=== PATIENT | male | born 1945 | race Caucasian/White ===

== ENCOUNTER 2019-10-20 14:15 | Outpatient (CLI) | payer MEDICARE, OTHER, SELFPAY ==
[2019-10-20 14:58] LABS: Basophils Absolute Auto 0.1 K/mm3 (0.0-0.1); Basophils Percent Auto 0.9 % (0.2-1.2); Eosinophils Absolute Auto 0.2 K/mm3 (0-0.3); Eosinophils Percent Auto 4.3 % (0-4.4); Hematocrit 47.3 % (42.0-52.0); Hemoglobin 15.8 g/dL (14.0-18.0); Immature Granulocyte Absolute 0.02 K/mm3 (0.00-0.031); Immature Granulocyte Percent A 0.4 % (0-0.5); Lymphocytes Percent Auto 24.5 % (18.3-44.2); Mean Corpuscular HGB Conc 33.4 g/dl (32-36); Mean Corpuscular Hemoglobin 30.9 pg (26-34); Mean Corpuscular Volume 92.6 fl (80-100); Mean Platelet Volume 10.1 fl (7.4-10.4); Monocytes Absolute Auto 0.6 K/mm3 (0.1-0.6); Monocytes Percent Auto 10.4 % (2.6-8.5); Neutrophils Absolute Auto 3.2 K/mm3 (1.3-6.7); Neutrophils Percent Auto 59.5 % (45.5-73.1); Platelet Count Result 169 k/mm3 (150-375); Red Blood Count 5.11 M/mm3 (4.6-6.20); Red Cell Distribution Width 12.9 % (11.5-14.5); White Blood Count 5.3 K/mm3 (4.5-10.0)
[2019-10-20 15:13] LABS: Blood Urea Nitrogen 18 mg/dL (9-20); Calcium 9.3 mg/dL (8.4-10.2); Carbon Dioxide 27 mmol/L (22-30); Chloride 106 mmol/L (98-107); Cholesterol 158 mg/dL (0-200); Estimated Glomerular Filt Rate > 60; Glucose 98 mg/dL (75-110); HDL Direct 45 mg/dL; Potassium 4.5 mmol/L (3.4-5.0); Sodium 138 mmol/L (137-145); Triglycerides 120 mg/dL (<150)
[2019-10-20 15:26] LABS: LDL Cholesterol Direct 88 mg/dL
[2019-10-20 15:31] LABS: Hemoglobin A1C 5.2 % (<5.7)
[2019-10-20 15:47] LABS: Prostate Specific Antigen 0.6 ng/mL (< OR = 4.0)
== END 2019-10-20 14:16 | disposition home or self-care (01) ==
PROVIDERS: PCP Internal Medicine; Visit Provider Internal Medicine
DX: I10 Essential (primary) hypertension (principal); Z12.5 Encounter for screening for malignant neoplasm of prostate; Z79.899 Other long term (current) drug therapy
CPT/HCPCS: 36415; 80048; 80061; 83036; 84153; 84443; 85025; G0103

== ENCOUNTER 2020-03-09 12:00 | Emergency (ER) | payer MEDICARE, OTHER, SELFPAY ==
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
[2020-03-09 11:58] VITALS: BP 139/80; PULSE 69; RESP 20; TEMP 36.8; O2SAT 97
--- NOTE | 2020-03-09 12:08 | ECG_ITS ---
Measurements Intervals [place] Rate: 71 P: 22 VT: 196 QRS: -22 QRSD: 118 T: 24 QT: 427 QTc: 465 Interpretive Statements SINUS RHYTHM INCOMPLETE RIGHT BUNDLE BRANCH BLOCK BORDERLINE T WAVE ABNORMALITY- INFERIOR LEADS BORDERLINE ECG Electronically Signed On 03-09-2020 15:09:38 CDT by Juan M Taylor D.O.
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
[2020-03-09] MEDS: MORPHINE SULFATE (*CRX) 2 MG/ML INJ IV PUSH ×2 (13:01→13:51)
[2020-03-09 13:03] VITALS: BP 117/76; PULSE 71; RESP 18; O2SAT 99
[2020-03-09 13:51] VITALS: BP 116/76; PULSE 74; RESP 20; O2SAT 100
[2020-03-09] MEDS: LIDOCAINE 5% PATCH 1 PATCH TRANSDERM (14:30)
--- NOTE | 2020-03-09 14:35 | PC.NURSE ---
report called to [facility] er. cardoza called for transport
[2020-03-09 15:39] VITALS: BP 117/72; PULSE 78; RESP 18; O2SAT 99
== END 2020-03-09 15:42 | disposition short-term general hospital (02) ==
PROVIDERS: Emergency Provider Emergency Medicine; PCP Internal Medicine
DX: S22.5XXA Flail chest, initial encounter for closed fracture (principal); S00.03XA Contusion of scalp, initial encounter; I48.91 Unspecified atrial fibrillation; I10 Essential (primary) hypertension; Z98.49 Cataract extraction status, unspecified eye; V18.4XXA Pedal cycle driver injured in noncollision transport accident in traffic accident, initial encounter; Y93.55 Activity, bike riding; I45.10 Unspecified right bundle-branch block; R94.31 Abnormal electrocardiogram [ECG] [EKG]
CPT/HCPCS: 70450; 71250; 72125; 93005; 96374; 96376; 99285; A9270; J2270

== ENCOUNTER 2020-03-19 11:35 | Outpatient (CLI) | payer MEDICARE, OTHER, SELFPAY ==
--- NOTE | ~2020-03-19 | US_ITS ---
EXAMINATION: US renal BI DATE: 03/19/2020 12:24 INDICATION: Contusion of the adrenal gland TECHNIQUE: Multiple grayscale and Doppler ultrasound images of the kidneys were obtained. COMPARISON: CT, 03/09/2020 FINDINGS: The right kidney measures 10.1 x 5.1 x 5.2 cm. The left kidney measures 11.0 x 5.9 x 5.7 cm . The kidneys demonstrate normal parenchymal echogenicity. The adrenal glands are not specifically id entified. There is no hydronephrosis. The bladder is normal. IMPRESSION: 1. Normal kidneys without hydronephrosis. 2. Adrenal glands not identified. Reviewed, dictated and finalized at location A.
--- NOTE | ~2020-03-19 | XR_ITS ---
EXAMINATION: XR chest 2V DATE: 03/19/2020 11:54 INDICATION: Abnormal chest CT. TECHNIQUE: Frontal and lateral views of the chest were obtained. COMPARISON: Chest CT 03/09/2020, chest 2 views 09/14/2012 FINDINGS: There is mild atelectasis in left lower lung zone. No pleural effusion or pneumothorax. The re are displaced fractures of most of the right-sided ribs with volume loss of the right hemithorax. The heart size is normal. There are suture anchors in the humeral heads. IMPRESSION: 1. Mild atelectasis in left lower lung zone. 2. Displaced fractures of most of the right-sided ribs with volume loss of right hemithorax. Reviewed, dictated and finalized at location A. IMPRESSION: 1. Mild atelectasis in left lower lung zone. 2. Displaced fractures of most of the right-sided ribs with volume loss of righ t hemithorax.
== END 2020-03-19 11:36 | disposition home or self-care (01) ==
PROVIDERS: PCP Internal Medicine; Visit Provider Internal Medicine
DX: S37.812A Contusion of adrenal gland, initial encounter (principal); R93.89 Abnormal findings on diagnostic imaging of other specified body structures; S22.41XA Multiple fractures of ribs, right side, initial encounter for closed fracture; Z91.81 History of falling
CPT/HCPCS: 71046; 76775

== ENCOUNTER 2020-07-09 10:31 | Outpatient (CLI) | payer MEDICARE, OTHER, SELFPAY ==
[2020-07-09 11:02] LABS: Basophils Percent Auto 0.8 % (0.2-1.2); Eosinophils Absolute Auto 0.1 K/mm3 (0-0.3); Eosinophils Percent Auto 2.3 % (0-4.4); Hematocrit 48.2 % (42.0-52.0); Hemoglobin 16.1 g/dL (14.0-18.0); Immature Granulocyte Absolute 0.01 K/mm3 (0.00-0.031); Immature Granulocyte Percent A 0.2 % (0-0.5); Lymphocytes Percent Auto 26.9 % (18.3-44.2); Mean Corpuscular HGB Conc 33.4 g/dl (32-36); Mean Corpuscular Hemoglobin 30.1 pg (26-34); Mean Corpuscular Volume 90.1 fl (80-100); Monocytes Absolute Auto 0.5 K/mm3 (0.1-0.6); Monocytes Percent Auto 9.8 % (2.6-8.5); Neutrophils Absolute Auto 3.1 K/mm3 (1.3-6.7); Platelet Count Result 167 k/mm3 (150-375); Red Blood Count 5.35 M/mm3 (4.6-6.20); Red Cell Distribution Width 12.9 % (11.5-14.5); White Blood Count 5.2 K/mm3 (4.5-10.0)
[2020-07-09 11:03] LABS: Add Urine Microscopic? YES; Appearance Urine Clear (Clear); Bilirubin Urine Negative (Negative); Blood Urine Negative (Negative); Color Urine Straw (Yellow); Glucose Urine UA Negative (Negative); Ketones Urine Negative (Negative); Leukocyte Esterase Ur 1+ LEU/UL (NEGATIVE); Nitrate Urine Negative (Negative); Protein Urine Negative (Negative); Specific Grav Ur 1.008 (1.001-1.035); Urobilinogen Urine Negative mg/dL (<2.0)
[2020-07-09 11:23] LABS: LDL Cholesterol Direct 89 mg/dL
[2020-07-09 11:24] LABS: Hemoglobin A1C 5.1 % (<5.7)
[2020-07-09 11:29] LABS: Alanine Aminotransferase 19 U/L (4-50); Albumin Level 4.4 g/dL (3.5-5.1); Alkaline Phosphatase 86 U/L (38-126); Anion Gap 5 mmol/L (8-16); Aspartate Amino Transferase 29 U/L (17-59); Bilirubin,Total 0.7 mg/dL (0.2-1.3); Blood Urea Nitrogen 20 mg/dL (9-20); Calcium 9.5 mg/dL (8.4-10.2); Carbon Dioxide 31 mmol/L (22-30); Chloride 104 mmol/L (98-107); Cholesterol 154 mg/dL (0-200); Estimated Glomerular Filt Rate > 60; Glucose 100 mg/dL (75-110); HDL Direct 44 mg/dL; Potassium 4.4 mmol/L (3.4-5.0); Sodium 140 mmol/L (137-145); Triglycerides 163 mg/dL (<150)
[2020-07-11 21:37] LABS: Homocysteine 19.5 umol/L (<11.4)
[2020-07-11 22:08] LABS: Vitamin D 1,25 (OH)2 Total 46 pg/mL (18-72); Vitamin D2 1,25 (OH)2 <8 pg/mL; Vitamin D3 1,25 (OH)2 46 pg/mL
== END 2020-07-09 10:32 | disposition home or self-care (01) ==
PROVIDERS: PCP Internal Medicine; Visit Provider Internal Medicine
DX: E55.9 Vitamin D deficiency, unspecified (principal); R79.89 Other specified abnormal findings of blood chemistry; Z79.899 Other long term (current) drug therapy
CPT/HCPCS: 36415; 80053; 80061; 81001; 82652; 83036; 83090; 85025

== ENCOUNTER 2020-07-11 09:58 | Outpatient (CLI) | payer MEDICARE, OTHER, SELFPAY ==
[2020-07-11 10:50] LABS: Add Urine Microscopic? YES; Appearance Urine Clear (Clear); Bacteria Urine Trace /hpf; Bilirubin Urine Negative (Negative); Blood Urine Negative (Negative); Calcium Oxalate Crystals Urine Present /hpf; Color Urine Yellow (Yellow); Glucose Urine UA Negative (Negative); Ketones Urine Negative (Negative); Leukocyte Esterase Ur 1+ LEU/UL (NEGATIVE); Mucus Urine Rare /lpf; Nitrate Urine Negative (Negative); Protein Urine 1+ mg/dL (Negative); Specific Grav Ur 1.025 (1.001-1.035); Squamous Epithelial Cell Urine Rare /hpf (Few); WBC Urine 21-30 /hpf (0-3)
== END 2020-07-11 09:59 | disposition home or self-care (01) ==
PROVIDERS: PCP Internal Medicine; Visit Provider Internal Medicine
DX: R31.29 Other microscopic hematuria (principal)
CPT/HCPCS: 81001

== ENCOUNTER 2020-07-15 13:50 | Outpatient (CLI) | payer MEDICARE, OTHER, SELFPAY ==
--- NOTE | ~2020-07-15 | CT_ITS ---
EXAMINATION: CT abdomen pelvis wo/w con DATE: 07/15/2020 14:41 INDICATION: Hematuria, unspecified TECHNIQUE: Computed tomography (CT) of the abdomen and pelvis was performed without intravenous contr ast. CT of the abdomen and pelvis was then performed with a total of 130 mL Omnipaque 350 intravenous contrast using a double-bolus technique for simultaneous opacification of the renal parenchyma and r enal collecting system. The dose-length product (DLP) was 2838.66 mGy-cm. Automated exposure control and iterative reconstruction technique were employed. COMPARISON: 08/24/2011 FINDINGS: The lung bases are clear. The heart size is normal. There is a small sliding hiatal hernia. Cysts of the liver measure up to 9 mm in the right hepatic lobe. The spleen, pancreas, gallbladder, and right adrenal gland are normal. There is a 9 mm adenoma of the left adrenal gland. There are five nonobstructing stones of the right kidney which measure up to 9 mm. There is a 2 mm nonobstructing s tone of the left kidney. No stones are identified in the ureters or bladder. There is no hydronephros is or hydroureter. No suspicious renal or urothelial lesion is identified. No pathologically enlarged abdominal or pelvic lymph nodes are identified. There is no free intraperitoneal gas or evidence of bowel obstruction. An apparent filling defect of the bladder base appears to be related to the enlarg ed prostate rather than a bladder mass. A moderate volume of colonic stool is present. The appendix i s normal. There are surgical changes in the proximal left femur. There is severe lumbar spondylosis. IMPRESSION: 1. Bilateral nonobstructing nephrolithiasis. No suspicious renal or urothelial lesion identified. Reviewed, dictated and finalized at location A. 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
== END 2020-07-15 13:51 | disposition home or self-care (01) ==
PROVIDERS: PCP Internal Medicine; Visit Provider Internal Medicine
DX: R31.0 Gross hematuria (principal); N20.0 Calculus of kidney
CPT/HCPCS: 74178; Q9967

== ENCOUNTER 2020-09-04 09:33 | Outpatient (CLI) | payer MEDICARE, OTHER, SELFPAY ==
--- NOTE | ~2020-09-04 | XR_ITS ---
EXAMINATION: XR abdomen/kub 1V INDICATION: Calculus of the kidney TECHNIQUE: Supine views of the abdomen were obtained on 2 radiographs. COMPARISON: CT, 07/15/2020 FINDINGS: Stones measuring 9 mm and 3 mm are present in the lower pole of the right kidney. A [address] one previously seen in the right mid kidney is not definitely identified. Punctate left nephrolithias is on the comparison CT is also not seen. The bowel gas pattern is normal. There is severe lumbar spo ndylosis. IMPRESSION: 1. Right nephrolithiasis. Reviewed, dictated and finalized at location A. IMPRESSION: 1. Right nephrolithiasis.
== END 2020-09-04 09:34 | disposition home or self-care (01) ==
PROVIDERS: PCP Internal Medicine; Visit Provider Urology
DX: N20.0 Calculus of kidney (principal)
CPT/HCPCS: 74018

== ENCOUNTER 2020-11-19 14:32 | Outpatient (CLI) | payer MEDICARE, OTHER, SELFPAY ==
[2020-11-19 15:06] LABS: Anion Gap 9 mmol/L (8-16); Blood Urea Nitrogen 22 mg/dL (9-20); Calcium 9.3 mg/dL (8.4-10.2); Carbon Dioxide 25 mmol/L (22-30); Chloride 107 mmol/L (98-107); Cholesterol 157 mg/dL (0-200); Estimated Glomerular Filt Rate > 60; Glucose 102 mg/dL (75-110); HDL Direct 45 mg/dL; Potassium 4.3 mmol/L (3.4-5.0); Sodium 141 mmol/L (137-145); Triglycerides 149 mg/dL (<150)
[2020-11-19 15:17] LABS: LDL Cholesterol Direct 80 mg/dL
[2020-11-21 18:18] LABS: Homocysteine 11.7 umol/L (<11.4)
[2020-11-22 16:19] LABS: Vitamin D 1,25 (OH)2 Total 41 pg/mL (18-72); Vitamin D2 1,25 (OH)2 <8 pg/mL; Vitamin D3 1,25 (OH)2 41 pg/mL
== END 2020-11-19 14:33 | disposition home or self-care (01) ==
PROVIDERS: PCP Internal Medicine; Visit Provider Internal Medicine
DX: E55.9 Vitamin D deficiency, unspecified (principal); Z79.899 Other long term (current) drug therapy; R79.89 Other specified abnormal findings of blood chemistry
CPT/HCPCS: 36415; 80048; 80061; 82652; 83090

== ENCOUNTER 2021-07-03 00:05 | Day surgery (SDC) | payer MEDICARE, OTHER, SELFPAY ==
[2021-06-23 14:27] VITALS: BMI 27.3
[2021-07-03 07:50] VITALS: BP 118/72; PULSE 60; RESP 16; TEMP 36.2; O2SAT 99; BMI 27.9
[2021-07-03] MEDS: LACTATED RINGERS 1,000 ML 150 ML IV CONT (08:06)
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
[2021-07-03 08:58] VITALS: BP 95/56; PULSE 62; RESP 13; O2SAT 99
[2021-07-03 09:08] VITALS: BP 87/57; PULSE 67; RESP 13; O2SAT 100
[2021-07-03 09:18] VITALS: BP 117/76; PULSE 57; RESP 16; O2SAT 100
== END 2021-07-03 09:30 | disposition home or self-care (01) ==
PROVIDERS: PCP Internal Medicine; Visit Provider Internal Medicine Gastroenterology
PROC: 0DJD8ZZ Inspection of Lower Intestinal Tract, Via Natural or Artificial Opening Endoscopic (ICD-10-PCS; CPT 45378; principal; 2021-07-03 08:30)
DX: Z12.11 Encounter for screening for malignant neoplasm of colon (principal); D12.2 Benign neoplasm of ascending colon; K64.8 Other hemorrhoids; K57.30 Diverticulosis of large intestine without perforation or abscess without bleeding; Z87.828 Personal history of other (healed) physical injury and trauma; F41.9 Anxiety disorder, unspecified
CPT/HCPCS: 45385; 88305; J2704; J7120

== ENCOUNTER 2021-08-20 13:09 | Outpatient (CLI) | payer MEDICARE, SELFPAY ==
[2021-08-20 13:29] LABS: Basophils Absolute Auto 0.1 K/mm3 (0.0-0.1); Basophils Percent Auto 0.9 % (0.2-1.2); Eosinophils Absolute Auto 0.1 K/mm3 (0-0.3); Eosinophils Percent Auto 1.1 % (0-4.4); Hematocrit 46.1 % (42.0-52.0); Hemoglobin 15.7 g/dL (14.0-18.0); Immature Granulocyte Absolute 0.03 K/mm3 (0.00-0.031); Immature Granulocyte Percent A 0.6 % (0-0.5); Lymphocytes Absolute Auto 1.07 K/mm3 (0.9-3.2); Lymphocytes Percent Auto 19.7 % (18.3-44.2); Mean Corpuscular HGB Conc 34.1 g/dl (32-36); Mean Corpuscular Hemoglobin 31.3 pg (26-34); Mean Platelet Volume 9.2 fl (7.4-10.4); Monocytes Absolute Auto 0.5 K/mm3 (0.1-0.6); Monocytes Percent Auto 9.6 % (2.6-8.5); Neutrophils Absolute Auto 3.7 K/mm3 (1.3-6.7); Neutrophils Percent Auto 68.1 % (45.5-73.1); Platelet Count Result 172 k/mm3 (150-375); Red Blood Count 5.01 M/mm3 (4.6-6.20); Red Cell Distribution Width 12.6 % (11.5-14.5); White Blood Count 5.4 K/mm3 (4.5-10.0)
[2021-08-20 13:37] LABS: Add Urine Microscopic? YES; Appearance Urine Clear (Clear); Bilirubin Urine Negative (Negative); Blood Urine 2+ (Negative); Color Urine Yellow (Yellow); Glucose Urine UA Negative (Negative); Ketones Urine Negative (Negative); Leukocyte Esterase Ur Trace LEU/UL (Negative); Mucus Urine Rare /lpf; Nitrate Urine Negative (Negative); Protein Urine Negative (Negative); RBC Urine 51-75 /hpf (0-2); Specific Grav Ur 1.015 (1.001-1.035); Squamous Epithelial Cell Urine Rare /hpf (Few); Urobilinogen Urine Negative mg/dL (<2.0)
[2021-08-20 13:42] LABS: Alanine Aminotransferase 17 U/L (4-50); Albumin Level 4.6 g/dL (3.5-5.1); Alkaline Phosphatase 76 U/L (38-126); Anion Gap 5 mmol/L (8-16); Aspartate Amino Transferase 29 U/L (17-59); Bilirubin,Total 0.8 mg/dL (0.2-1.3); Blood Urea Nitrogen 20 mg/dL (9-20); Calcium 9.4 mg/dL (8.4-10.2); Carbon Dioxide 25 mmol/L (22-30); Chloride 106 mmol/L (98-107); Cholesterol 149 mg/dL (0-200); Estimated Glomerular Filt Rate > 60; Glucose 108 mg/dL (65-110); HDL Direct 44 mg/dL; Potassium 4.3 mmol/L (3.4-5.0); Sodium 136 mmol/L (137-145); Triglycerides 131 mg/dL (<150)
[2021-08-20 13:53] LABS: LDL Cholesterol Direct 70 mg/dL
[2021-08-20 13:59] LABS: Hemoglobin A1C 4.9 % (<5.7)
[2021-08-20 14:32] LABS: Free T4 Free Thyroxine 0.99 ng/mL (0.78-2.19)
== END 2021-08-20 13:10 | disposition home or self-care (01) ==
PROVIDERS: PCP Internal Medicine; Visit Provider Internal Medicine
DX: Z79.899 Other long term (current) drug therapy (principal); Z13.29 Encounter for screening for other suspected endocrine disorder; Z13.220 Encounter for screening for lipoid disorders
CPT/HCPCS: 36415; 80053; 80061; 81001; 83036; 84439; 84443; 85025; 87077; 87086; 87186

== ENCOUNTER 2021-09-01 15:05 | Outpatient (CLI) | payer MEDICARE, OTHER, SELFPAY ==
[2021-09-01 15:40] LABS: Anion Gap 8 mmol/L (8-16); Blood Urea Nitrogen 27 mg/dL (9-20); Calcium 9.3 mg/dL (8.4-10.2); Carbon Dioxide 27 mmol/L (22-30); Chloride 104 mmol/L (98-107); Estimated Glomerular Filt Rate 54; Glucose 99 mg/dL (65-110); Sodium 139 mmol/L (137-145)
[2021-09-01 15:52] LABS: Add Urine Microscopic? YES; Appearance Urine Cloudy (Clear); Bilirubin Urine Negative (Negative); Color Urine Yellow (Yellow); Glucose Urine UA Negative (Negative); Ketones Urine Negative (Negative); Leukocyte Esterase Ur Trace LEU/UL (Negative); Mucus Urine Rare /lpf; Nitrate Urine Negative (Negative); Protein Urine 1+ mg/dL (Negative); Specific Grav Ur 1.021 (1.001-1.035); WBC Urine 16-20 /hpf
[2021-09-01 16:06] LABS: Blood Urine Negative (Negative)
== END 2021-09-01 15:06 | disposition home or self-care (01) ==
LOC: ANHLAB 15:08
PROVIDERS: PCP Internal Medicine; Visit Provider Internal Medicine
DX: N39.0 Urinary tract infection, site not specified (principal); E87.5 Hyperkalemia
CPT/HCPCS: 36415; 80048; 81001; 87086; 87088

== ENCOUNTER 2021-10-03 13:18 | Outpatient (CLI) | payer MEDICARE, OTHER, SELFPAY ==
--- NOTE | ~2021-10-03 | XR_ITS ---
XR hip LT min 2V DATE: 10/03/2021 13:44 INDICATION: Left hip pain TECHNIQUE: AP and lateral views COMPARISON: None FINDINGS: 3 cerclage wires are noted, the lowermost fracture, at the intertrochanteric and subtrochan teric area of the left femur, apparently providing prior internal fixation of an intertrochanteric hi p fracture, with chronic associated deformity, with contiguous areas of heterotopic ossification. No recent fracture or dislocation. No bone destruction is evident. IMPRESSION: Old proximal left femoral fracture deformity Osteopenia Reviewed, dictated and finalized at location A.
--- NOTE | ~2021-10-03 | XR_ITS ---
XR lumbar spine 2-3V DATE: 10/03/2021 13:44 INDICATION: Low back pain TECHNIQUE: AP, lateral, coned lateral lumbosacral views COMPARISON: None FINDINGS: There is diffuse osteopenia. No fracture or bone destruction is evident. The lumbar pedicles are intact. There is prominent degenerative spurring of the lower thoracic and prominent bridging osteophytes of the lumbar spine. There is moderate degenerative disc disease and very prominent spurring at L1-2. There is moderately severe degenerative disc disease at L2-3. There is severe degenerative disc disease at L3-4, L4-5 and L5-S1. There is minimal anterolisthesis at L3-4 and L4-5 due to degenerative change at the apophyseal joints . The sacroiliac joints are intact. IMPRESSION: Prominent multilevel degenerative disc disease and bridging osteophytes of the lumbar spi ne Grade 1 anterolisthesis at L3-4 and L4-5 due to degenerative change at the apophyseal joints Osteopenia Reviewed, dictated and finalized at location A. IMPRESSION: Prominent multilevel degenerative disc disease and bridging osteoph ytes of the lumbar spine Grade 1 anterolisthesis at L3-4 and L4-5 due to degenerative change at the apop hyseal joints Osteopenia
== END 2021-10-03 13:19 | disposition home or self-care (01) ==
LOC: ANHIMG 13:25
PROVIDERS: PCP Internal Medicine; Visit Provider Internal Medicine
DX: M85.852 Other specified disorders of bone density and structure, left thigh (principal); M85.88 Other specified disorders of bone density and structure, other site; M51.36 Other intervertebral disc degeneration, lumbar region
CPT/HCPCS: 72100; 73502

== ENCOUNTER 2021-10-09 17:00 | Outpatient (CLI) | payer MEDICARE, OTHER, SELFPAY ==
[2021-10-09 19:18] LABS: Hemoglobin A1C 4.9 % (<5.7)
[2021-10-09 19:27] LABS: Thyroid Stimulating Hormone 0.982 uIU/mL (0.465-4.680)
[2021-10-09 19:44] LABS: Free T4 Free Thyroxine 1.07 ng/mL (0.78-2.19); Vitamin D 25 Hydroxy 68.1 ng/mL
== END 2021-10-09 17:01 | disposition home or self-care (01) ==
LOC: ANHLAB 17:04
PROVIDERS: PCP Internal Medicine; Visit Provider Internal Medicine
DX: Z79.899 Other long term (current) drug therapy (principal); Z13.29 Encounter for screening for other suspected endocrine disorder; E55.9 Vitamin D deficiency, unspecified
CPT/HCPCS: 36415; 82306; 83036; 84439; 84443

== ENCOUNTER → 2021-12-19 10:04 | Outpatient (CLI) | payer MEDICARE, OTHER, SELFPAY ==
--- NOTE | ~2021-12-19 | DEXA_ITS ---
Bone Density Report Name: RYAN RAM Age: 76 Sex: Male Ethnicity: White Date of : 1945 Indication: screening for osteoporosis; height loss; rheumatoid arthritis; Referring Provider: MANOJ CHIANG Study: Bone densitometry was performed. Exam Date: December 19, 2021 Accession number: [id number] Bone Density: Region BMD T-score Z-score Classification AP Spine (L1, L2, L3) 1.275 1.9 2.9 Normal Femoral Neck (Right) 0.602 -2.4 -1.1 Osteopenia Total Hip (Right) 0.807 -1.5 -0.7 Osteopenia World Health Organization criteria for BMD impression classify patients as: Normal (T-score at or above -1.0), Osteopenia (T-score between -1.0 and -2.5), or Osteoporosis (T-score at or below -2.5). 10-year Fracture Risk(1): Major Osteoporotic Fracture 13% Hip Fracture 5.1% Reported Risk Factors: [place] (), Neck BMD=0.602, BMI=30.5, rheumatoid arthritis (1) FRAX(R) Version 3.08. Fracture probability calculated for an untreated patient. Fracture probability may be lower if the patient has received treatment. Clinical Information Provided by Patient: Has rheumatoid arthritis Patient maximum height was 77 Drinks caffeinated beverages Impression: The patient has low bone mass, based on the Right Femoral Neck T-score. The patient has an estimated ten-year risk of hip fracture of 5.1% and an estimated ten-year risk of major fracture of 13%, based on the WHO FRAX algorithm. Discussion: BONE DENSITY IS LOW AT ONE OR MORE SKELETAL SITES. THE PATIENT'S BMD AND CLINICAL RISK FACTORS CONTRIBUTE TO THIS PATIENT'S INCREASED RISK OF FRACTURE. This patient's lowest T-score is low at one or more skeletal sites. It meets the World Health Organization's (WHO) criteria for ?low bone mass? (T-score between -1.0 and -2.5). The patient's 10-year risk of hip fracture as calculated by FRAX exceeds the threshold where pharmacological therapy is recommended by the National Osteoporosis Foundation (NOF). However, all treatment decisions require clinical judgment and consideration of individual patient factors, including patient preferences, comorbidities, previous drug use, risk factors not captured in the FRAX model (e.g., frailty, falls, vitamin D deficiency, increased bone turnover, interval significant decline in bone density) and possible under or overestimation of fracture risk by FRAX. The patient should follow a healthful lifestyle (good nutrition with adequate calcium and vitamin D, and appropriate weight-bearing exercise). Follow-Up: Consider repeating this study in 2 years to reassess this patient's status, or sooner if there is some new clinical indication. Reported by: [facility] on 12/19/2021 10:32:00 AM. Reviewed, dictated and finalized at location AJoy QUINONES
== END ==
PROVIDERS: PCP Internal Medicine; Visit Provider Internal Medicine
DX: Z87.310 Personal history of (healed) osteoporosis fracture (principal); M85.851 Other specified disorders of bone density and structure, right thigh
CPT/HCPCS: 77080

== ENCOUNTER 2022-04-09 07:10 | Outpatient (CLI) | payer MEDICARE, SELFPAY ==
[2022-04-09 07:57] LABS: LDL Cholesterol Direct 84 mg/dL
[2022-04-09 08:05] LABS: Cholesterol 148 mg/dL (0-200); HDL Direct 46 mg/dL
[2022-04-09 08:39] LABS: Triglycerides 71 mg/dL (<150)
[2022-04-09 09:29] LABS: Free T4 Free Thyroxine 0.91 ng/mL (0.78-2.19)
== END 2022-04-09 07:11 | disposition home or self-care (01) ==
LOC: ANHLAB 07:14
PROVIDERS: PCP Internal Medicine; Visit Provider Internal Medicine
DX: M85.80 Other specified disorders of bone density and structure, unspecified site (principal); Z13.21 Encounter for screening for nutritional disorder; Z79.899 Other long term (current) drug therapy; Z86.79 Personal history of other diseases of the circulatory system
CPT/HCPCS: 36415; 80061; 84439; 84443

== ENCOUNTER 2022-04-28 01:30 | Day surgery (SDC) | payer MEDICARE, SELFPAY ==
[2022-04-24 07:57] VITALS: BMI 29.0
--- NOTE | 2022-04-24 08:07 | PC.NURSE ---
PRE-OP INSTRUCTIONS, PLEASE READ CAREFULLY Report to the Outpatient Waiting Room, entrance under the green pavilion located off [facility], at time _0930_ on date _04/28/22_. Planned Procedure Time: _1130_. Time changes happen often and if your time is changed the preop area will call you the afternoon before. - You and your visitor will be asked to self-screen and do not enter if you have any COVID symptoms. - Only one visitor is requested with a max of two and NO children visitors are allowed at this time. - The patient visitor may be requested to leave or wait in car when not with patient due to distancing restrictions. - A mask is optional within the hospital. Patients may have clear liquids (water, carbonated beverages, clear teas, apple juice) until 3 hours prior to surgery (0830 AM) with a maximum of 20 ounces. - No food from midnight until time of surgery Take the following medications with a SIP of water the morning of surgery: _FLECAINIDE, GABAPENTIN, LORAZEPAM, TYLENOL IF NEEDED__ Medications to discontinue per DR. GUERRA - START 81MG ASPIRIN TO TONIGHT UNTIL SURGERY, IBUPROFEN PER DR. GUERRA'S INSTRUCTIONS _ Medications to discontinue per ANESTHESIA - _VITAMINS/SUPPLEMENTS, Date to take last dose 04/24/22_ Please no make-up, nail georgian, hairspray, perfume, deodorant, or body powder the day of surgery. No jewelry (including any body piercings) or valuables the day of surgery, leave them at home. Please take a shower or bath the night before, or the morning of, surgery with an antibacterial soap. Wear comfortable, loose fitting clothing. - Jewelry must be removed prior to entering the operating room. Rings and piercings that are not removed may be cut off. - The hospital will not accept responsibility for valuables. - Please leave all valuables, including medications, at home the day of surgery. If you are going home after surgery, a licensed shuttle truck driver must drive you home. - NO public transportation without another adult if you receive anesthesia. - We recommend that an adult stay with you for 24 hours following discharge. - We also recommend that you do not drive, make important decision, drink alcoholic beverages, or take any drugs that were not prescribed by your health care provider for at least 24 hours after your discharge time. Follow any additional instructions given to you from your surgeon. If you or anyone in your household have experienced Covid symptoms in the past week, please notify your surgeon or the nurse liaison at the phone number below for possible testing. Telephone instructions given to ____PT and asked if any additional questions and then verbalized understanding. Patient advised to call surgeon office or pre surgery nurse liaison [phone] if any additional questions.
--- NOTE | 2022-04-28 08:56 | WPDANESEPPF ---
Anes - Initial Pre Proc Eval Procedure: Operation Date: 04/28/22 11:30 Proposed Procedures p Rectal Examination Under Anesthesia, Excision of Residual Hemorrhoid Skin Tag - Stef Beebe DO Date/Time: 04/28/22 08:56 Surgeon: Stef Beebe DO Pre Op Diagnosis: residual hemorrhoids skin tags Patient Data Age: 77 Gender: M Height: 1.93 m Weight: 108.18 kg Allergies Allergy/AdvReac Type Severity Reaction Status Date / Time cephalexin Allergy Mild Rash Verified 04/28/22 09:31 latex Allergy Mild Rash Verified 04/28/22 09:31 Penicillins Allergy Mild Rash Verified 04/28/22 09:31 MARIA ELENA Inhibitors AdvReac Mild Cough Verified 04/28/22 09:31 TAPE Allergy Intermediate BLISTERS Uncoded 04/28/22 09:31 Home Medications Medication Instructions Recorded Confirmed Type omega-3 fatty acids 1,000 mg 2,000 mg PO BID 06/22/19 04/24/22 History capsule (Fish Oil Concentrate) cyanocobalamin (vitamin B-12) 1,000 mcg PO DAILY 07/18/20 04/24/22 History 1,000 mcg tablet folic acid 1 mg tablet 1 mg PO DAILY #90 tabs 05/16/21 04/24/22 Rx finasteride 5 mg tablet 5 mg PO HS 06/23/21 04/24/22 History flecainide 100 mg tablet 100 mg PO Q12H 06/23/21 04/24/22 History gabapentin 600 mg tablet 600 mg PO TID 06/23/21 04/24/22 History losartan 50 mg tablet See Rx Instructions .Route 08/11/21 04/24/22 Rx .COMPLEX #180 tabs garlic 100 mg tablet 100 mg PO DAILY 08/21/21 04/24/22 History potassium citrate 10 mEq (1,080 20 meq PO DAILY 09/02/21 04/24/22 History mg) tablet,extended release triamcinolone acetonide 0.5 % 1 applic topical BID #60 grams 10/03/21 04/24/22 Rx topical cream hydrocortisone 2.5 % topical cream 1 applic RECTAL BID-TID PRN 12/19/21 04/24/22 Rx with perineal applicator hemorrhoids #30 grams (Anusol-HC) zolpidem 10 mg tablet 10 mg PO QHS #90 tabs 01/09/22 04/24/22 Rx lorazepam 1 mg tablet 1 mg PO TID #270 tabs 03/09/22 04/24/22 Rx acetaminophen 500 mg tablet 1,000 mg PO HS PRN Pain 04/24/22 04/24/22 History aspirin 81 mg capsule 162 mg PO HS 04/24/22 04/24/22 History ibuprofen 200 mg tablet 200 mg PO Q6H PRN Pain 04/24/22 04/24/22 History Patient hx anesthesia problems: none Family hx anesthesia problems: none Results Review: All pre-operative results and documents have been reviewed as part of the pre-operative evaluation. REPLACED BY [facility] Past Medical History Medical History (Updated 04/28/22 @ 10:00 by Nathaniel Mas MD) Anxiety Atrial fibrillation and flutter BCC (basal cell carcinoma of skin) BMI 26.0-26.9,adult BMI 27.0-27.9,adult BMI 28.0-28.9,adult BPPV (benign paroxysmal positional vertigo) Colon cancer screening DJD (degenerative joint disease) Encounter for Medicare annual wellness exam Encounter for routine adult health examination without abnormal findings Encounter for special screening examination for neoplasm of prostate Flail chest Flank pain Hearing loss Hematuria Hx of multiple trauma Hyperkalemia Insomnia Lymphedema Microscopic hematuria Nephrolithiasis 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 Rash Skin lesion UTI (urinary tract infection) Vestibular dizziness Weight gain Surgical History Surgical History Femur fracture, left Repair compound fracture left remur H/O shoulder surgery S/P cataract surgery Family History Family History Father Hypertension Acute myocardial infarction Mother Hypertension Family history of Alzheimer's disease Family history of heart disease in male family member before age 55 Family history of hypercholesterolemia Family history of cardiovascular disease Social History Social History Smoking status: Never smoker Second hand tobacco smoke exposure: No Alcohol intake: never Alcohol use details: does not drink due to Afib Substance use: never Substance use type: d
[2022-04-28 09:43] VITALS: BP 116/72; PULSE 65; RESP 16; TEMP 36.7; O2SAT 100
[2022-04-28] MEDS: ACETAMINOPHEN 500 MG TABLET 1000 MG PO (09:50)
[2022-04-28] MEDS: LACTATED RINGERS 1,000 ML 30 ML IV CONT (10:01)
[2022-04-28] MEDS: KETOROLAC 15 MG/ML VIAL (*BKC) IV PUSH (10:02)
--- NOTE | 2022-04-28 10:48 | WPDHPUPDATE1 ---
History and Physical Update Update Date/Time: 04/28/22 10:48 History and Physical has been reviewed, including an updated exam of the patient. There are NO changes in the patient's condition. Risks, benefits, and alternatives have been discussed and questions answered. Patient agrees to proceed with procedure.
--- NOTE | 2022-04-28 10:48 | PM.IMHP ---
H&P: HPI History of Present Illness Date/Time: 04/28/22 10:48 Chief Complaint: Hemorrhoid skin tag Narrative: This is a 77-year-old man presents excision residual hemorrhoid skin tag. He has a prior history of irritation from these skin tags and now presents for excision. He denies any changes since last seen in the office. Review of Systems Review of Systems: All systems reviewed & are unremarkable except as noted in HPI and below Constitutional: Constitutional: Denies chills, Denies fever(s), Denies headache(s) and Denies weight loss Eyes: Eyes: Denies change in vision ENT: Denies dizziness, Denies headache(s), Denies neck mass and Denies throat swelling Cardiovascular: Cardiovascular: Denies chest pain, Denies lightheadedness and Denies dyspnea Respiratory: Respiratory: Denies cough, Denies dyspnea and Denies wheezing Gastrointestinal: Gastrointestinal: Denies abdominal pain, Denies change in bowel habits, Denies nausea and Denies vomiting Genitourinary: Genitourinary: Denies hematuria and Denies dysuria Musculoskeletal: Musculoskeletal: Reports as per HPI Integumentary/Breasts: Skin/Breast: Reports as per HPI Neurologic: Denies dizziness and Denies headache(s) Allergic/Immunologic: Allergic/Immunologic: Denies throat swelling and Denies wheezing [facility] Past Medical History Medical History (Updated 04/28/22 @ 10:00 by Nathaniel Mas MD) Anxiety Atrial fibrillation and flutter BCC (basal cell carcinoma of skin) BMI 26.0-26.9,adult BMI 27.0-27.9,adult BMI 28.0-28.9,adult BPPV (benign paroxysmal positional vertigo) Colon cancer screening DJD (degenerative joint disease) Encounter for Medicare annual wellness exam Encounter for routine adult health examination without abnormal findings Encounter for special screening examination for neoplasm of prostate Flail chest Flank pain Hearing loss Hematuria Hx of multiple trauma Hyperkalemia Insomnia Lymphedema Microscopic hematuria Nephrolithiasis On assisted drug therapy Rash Skin lesion UTI (urinary tract infection) Vestibular dizziness Weight gain Surgical History Surgical History Femur fracture, left Repair compound fracture left remur H/O shoulder surgery S/P cataract surgery Family History Family History Father Hypertension Acute myocardial infarction Mother Hypertension Family history of Alzheimer's disease Family history of heart disease in male family member before age 55 Family history of hypercholesterolemia Family history of cardiovascular disease Social History Social History Smoking status: Never smoker Second hand tobacco smoke exposure: No Alcohol intake: never Alcohol use details: does not drink due to Afib Substance use: never Substance use type: does not use Living arrangements: with friend(s) Additional living arrangements comments: LIVES WITH SIGNIFICANT OTHER Spiritual care concerns: No Meds Home Medications and Allergies Home Medications Medication Instructions Recorded Confirmed Type omega-3 fatty acids 1,000 mg 2,000 mg PO BID 06/22/19 04/24/22 History capsule (Fish Oil Concentrate) cyanocobalamin (vitamin B-12) 1,000 mcg PO DAILY 07/18/20 04/24/22 History 1,000 mcg tablet folic acid 1 mg tablet 1 mg PO DAILY #90 tabs 05/16/21 04/24/22 Rx finasteride 5 mg tablet 5 mg PO HS 06/23/21 04/24/22 History flecainide 100 mg tablet 100 mg PO Q12H 06/23/21 04/24/22 History gabapentin 600 mg tablet 600 mg PO TID 06/23/21 04/24/22 History losartan 50 mg tablet See Rx Instructions .Route 08/11/21 04/24/22 Rx .COMPLEX #180 tabs garlic 100 mg tablet 100 mg PO DAILY 08/21/21 04/24/22 History potassium citrate 10 mEq (1,080 20 meq PO DAILY 09/02/21 04/24/22 History mg) tablet,extended release triamcinolone acetonide 0.5
[2022-04-28] MEDS: CLINDAMYCIN 900 MG/D5W 50 ML 900 MG/50 ML PIGGYBACK 50 MG IVPB (11:13)
[2022-04-28 12:00] VITALS: BP 83/50; PULSE 61; RESP 13; O2SAT 98
[2022-04-28 12:30] VITALS: BP 119/73; PULSE 62; RESP 20
--- NOTE | 2022-04-28 12:39 | P.OP_ITS ---
Procedure Note - Detailed Date of Procedure 04/28/22 Pre-op Diagnosis residual hemorrhoids skin tags Post-op Diagnosis Same Procedure Performed Rectal exam under anesthesia with excision of residual hemorrhoid skin tag Surgeon Stef Beebe, DO Anesthesia General and Local (0.25% bupivicaine with epinephrine) Indications This is a 77-year-old man who presents with perianal irritation and a residual hemorrhoid skin tag. He had a prior history of a small hard lump in the perianal region that since resolved. He was found to have a perianal residual hemorrhoid skin tag on exam. Discussions were made with the patient about treatment options and decision was made to proceed with rectal exam under anesth esia with excision of residual hemorrhoid skin tag. Findings Rectal exam under anesthesia was performed. Patient was found to have a posterior midline residual hemorrhoid skin tag. There were no signs of significant prolapsing internal hemorrhoids or thrombosed external hemorrhoids. The residual hemorrhoid skin tag was excised in the posterior midline location. The specimen was sent to the lab for pathology. Description of Procedure Procedure as well as risks, benefits, and alternatives were discussed with the patient. Written consent was obtained and placed in chart prior to procedure. Patient was brought back to surgical suite. He was placed supine on operating table. Time-out was done to confirm patient and procedure. He was then intubated by the anesthesia department. He was then repositioned into lithotomy position in stirrups. His perirectal region was prepped and draped in sterile fashion using Betadine prep. Digital rectal exam was initially performed. A Hill-López anoscope was then inserted in the anal rectal canal was carefully inspected. No internal abnormalities were noted. There was a posterior midline residual hemorrhoid skin tag. 0.25% bupivacaine with epinephrine was infiltrated locally around the skin tag. An elliptical incision was then made using a 15 blade scalpel around the skin tag. The skin tag was then carefully excised with electrocautery. The wound bed was then inspected and hemostasis appeared adequate. No other abnormalities were noted. The anal mucosa and anoderm was then reapproximated using 3-0 chromic simple interrupted sutures. Xeroform gauze was then applied followed by 4 x 4 gauze, ABD pad, and mesh underwear. The patient was then awakened from anesthesia, extubated, and transferred to recovery. Estimated Blood Loss 5 Pathology Yes ( Residual hemorrhoid skin tag) Complications No immediate complications Condition Stable Disposition Same day [facility] Billing Surgery - Charge Forward: Surgery Billing
[2022-04-28 13:00] VITALS: BP 122/77; PULSE 59; RESP 20
== END 2022-04-28 13:21 | disposition home or self-care (01) ==
PROVIDERS: PCP Internal Medicine; Visit Provider Surgery
PROC: (CPT 46999; principal; 2022-04-28 11:30)
DX: K64.4 Residual hemorrhoidal skin tags (principal); F41.9 Anxiety disorder, unspecified; G47.00 Insomnia, unspecified; Z79.82 Long term (current) use of aspirin
CPT/HCPCS: 46999; 88304; A9270; J1100; J1885; J2250; J2405; J2704; J3010; J7120

== ENCOUNTER 2022-05-15 09:57 | Outpatient (CLI) | payer MEDICARE, SELFPAY ==
[2022-05-15 10:53] LABS: Basophils Absolute Auto 0.1 K/mm3 (0.0-0.1); Basophils Percent Auto 0.9 % (0.2-1.2); Eosinophils Absolute Auto 0.3 K/mm3 (0-0.3); Eosinophils Percent Auto 4.6 % (0-4.4); Hematocrit 44.2 % (42.0-52.0); Hemoglobin 14.9 g/dL (14.0-18.0); Immature Granulocyte Absolute 0.02 K/mm3 (0.00-0.031); Immature Granulocyte Percent A 0.4 % (0-0.5); Lymphocytes Absolute Auto 1.27 K/mm3 (0.9-3.2); Lymphocytes Percent Auto 23.2 % (18.3-44.2); Mean Corpuscular HGB Conc 33.7 g/dl (32-36); Mean Corpuscular Hemoglobin 31.4 pg (26-34); Mean Corpuscular Volume 93.2 fl (80-100); Mean Platelet Volume 9.6 fl (7.4-10.4); Monocytes Absolute Auto 0.6 K/mm3 (0.1-0.6); Monocytes Percent Auto 10.4 % (2.6-8.5); Neutrophils Absolute Auto 3.3 K/mm3 (1.3-6.7); Neutrophils Percent Auto 60.5 % (45.5-73.1); Platelet Count Result 209 k/mm3 (150-375); Red Blood Count 4.74 M/mm3 (4.6-6.20); White Blood Count 5.5 K/mm3 (4.5-10.0)
[2022-05-15 10:59] LABS: Alanine Aminotransferase 26 U/L (6-50); Albumin Level 4.6 g/dL (3.5-5.1); Alkaline Phosphatase 82 U/L (38-126); Anion Gap 7 mmol/L (8-16); Aspartate Amino Transferase 30 U/L (17-59); Bilirubin,Total 0.6 mg/dL (0.2-1.3); Blood Urea Nitrogen 24 mg/dL (9-20); Calcium 8.9 mg/dL (8.4-10.2); Carbon Dioxide 25 mmol/L (22-30); Chloride 102 mmol/L (98-107); Estimated Glomerular Filt Rate > 60; Glucose 90 mg/dL (65-110); Potassium 4.8 mmol/L (3.4-5.0); Sodium 134 mmol/L (137-145)
[2022-05-15 11:22] LABS: Hemoglobin A1C 5.3 % (<5.7)
[2022-05-15 12:48] LABS: Vitamin D 25 Hydroxy 53.6 ng/mL
== END 2022-05-15 09:58 | disposition home or self-care (01) ==
PROVIDERS: PCP Internal Medicine; Visit Provider Internal Medicine
DX: M85.80 Other specified disorders of bone density and structure, unspecified site (principal); Z79.899 Other long term (current) drug therapy; Z13.21 Encounter for screening for nutritional disorder; Z86.79 Personal history of other diseases of the circulatory system
CPT/HCPCS: 36415; 80053; 82306; 83036; 85025

== ENCOUNTER 2022-07-17 13:33 | Outpatient (CLI) | payer MEDICARE, SELFPAY ==
--- NOTE | ~2022-07-17 | XR_ITS ---
EXAMINATION:XR cervical spine 4-5V DATE: 07/17/2022 14:05 INDICATION: Neck pain TECHNIQUE: AP, lateral, lateral swimmers and odontoid views of the cervical spine are provided. COMPARISON: 03/09/2020 FINDINGS: Alignment is normal. The odontoid process is intact. No fracture is identified. The vertebr al body heights are maintained. There is chronic moderate loss of intervertebral disc space height at C5-6, C6-C7, and C7-T1. Degenerative osteophytes project from the anterior endplates of multiple stanislaw tebral bodies. There is multilevel severe facet and uncovertebral joint osteoarthritis. Prevertebral soft tissues are normal. IMPRESSION: 1. Moderate cervical spondylosis without acute findings or significant interval change. Reviewed, dictated and finalized at location B. ER DUMPER
--- NOTE | ~2022-07-17 | XR_ITS ---
EXAMINATION: XR thoracic spine 3V DATE: 07/17/2022 14:06 INDICATION: Thoracic back pain TECHNIQUE: AP, lateral and lateral swimmer's views of the thoracic spine were obtained. COMPARISON: CT, 03/09/2020 FINDINGS: There are bridging osteophytes at multiple levels in the spine, consistent with diffuse idi opathic skeletal hyperostosis (DISH). Bone alignment is normal. There is no fracture. The vertebral b codie heights are maintained. There is mild loss of intervertebral disc space height at multiple levels in the thoracic spine. IMPRESSION: 1. Diffuse idiopathic skeletal hyperostosis (DISH). Reviewed, dictated and finalized at location B. TY SALES CONSULTANT
--- NOTE | ~2022-07-17 | XR_ITS ---
EXAMINATION: XR shoulder LT min 2V DATE: 07/17/2022 14:05 INDICATION: Left shoulder pain. TECHNIQUE: 4 views of left shoulder were obtained. COMPARISON: Chest CT 03/09/2020 FINDINGS: Bone alignment is normal. There is a fracture of left second rib. There are likely changes of distal clavicle resection. There is a suture anchor in greater tuberosity of proximal humerus. The re is mild osteoarthritis of glenohumeral joint. IMPRESSION: 1. Fracture of left second rib. 2. Mild left glenohumeral joint osteoarthritis. Reviewed, dictated and finalized at location A. ER REPAIRER ELECTRIC
== END 2022-07-17 13:34 | disposition home or self-care (01) ==
PROVIDERS: PCP Internal Medicine; Visit Provider Internal Medicine
DX: M48.14 Ankylosing hyperostosis [Forestier], thoracic region (principal); M47.892 Other spondylosis, cervical region; M19.012 Primary osteoarthritis, left shoulder; S22.32XA Fracture of one rib, left side, initial encounter for closed fracture; X58.XXXA Exposure to other specified factors, initial encounter
CPT/HCPCS: 72050; 72072; 73030

== ENCOUNTER 2022-07-20 13:14 | Outpatient (CLI) | payer MEDICARE, SELFPAY ==
--- NOTE | ~2022-07-20 | XR_ITS ---
EXAMINATION: XR lumbar spine min 4V DATE: 07/20/2022 13:47 INDICATION: Unspecified fall, back pain TECHNIQUE: Anteroposterior, lateral, and bilateral oblique views of the lumbar spine, and cone-down l ateral view of the lumbosacral junction were obtained. COMPARISON: 10/03/2021 FINDINGS: There is unchanged severe loss of intervertebral disc space height from L2-3 through L5-S1. The vertebral body heights are maintained. There are 5 mm of stable anterolisthesis of L5 on S1. Deg enerative osteophytes project from the anterior endplates of multiple vertebral bodies. There is mult ilevel severe facet joint osteoarthritis. IMPRESSION: 1. Severe lumbar spondylosis without acute findings or significant interval change. Reviewed, dictated and finalized at location B. ON PICTURE COMMENTATOR IMPRESSION: 1. Severe lumbar spondylosis without acute findings or significant interval jean nge.
--- NOTE | ~2022-07-20 | XR_ITS ---
EXAM: XR knee RT min 4V, XR knee LT min 4V DATE: 07/20/2022 13:47 HISTORY: W19.XXXA - Unspecified fall, initial encounter . COMPARISON: None available. FINDINGS: Uncomplicated appearing screw and plate fixation of the proximal left tibia. Decreased min eralization. No acute fracture or dislocation. No lytic or blastic lesion. Bilateral, tricompartmenta l osteophytosis, moderate in the right knee and mild in the left knee. Bilateral chondrocalcinosis. M arked quadriceps and patellar enthesopathy in the left knee. No erosion or periosteal change. Soft ti ssues within normal limits. IMPRESSION: Moderate right and mild left knee arthritis, with chondrocalcinosis. No acute osseous fin ding in the right or left knees. Reviewed, dictated and finalized at location K. ERCIAL ASSISTANT IMPRESSION: Moderate right and mild left knee arthritis, with chondrocalcinosis . No acute osseous finding in the right or left knees.
== END 2022-07-20 13:15 | disposition home or self-care (01) ==
PROVIDERS: PCP Internal Medicine; Visit Provider Internal Medicine
DX: M47.896 Other spondylosis, lumbar region (principal); M17.0 Bilateral primary osteoarthritis of knee
CPT/HCPCS: 72110; 73564

== ENCOUNTER 2022-09-15 07:46 | Outpatient (CLI) | payer MEDICARE, SELFPAY ==
[2022-09-15 08:12] LABS: Basophils Absolute Auto 0.1 K/mm3 (0.0-0.1); Eosinophils Absolute Auto 0.2 K/mm3 (0-0.3); Eosinophils Percent Auto 3.1 % (0-4.4); Hematocrit 44.7 % (42.0-52.0); Hemoglobin 14.8 g/dL (14.0-18.0); Immature Granulocyte Absolute 0.03 K/mm3 (0.00-0.031); Immature Granulocyte Percent A 0.6 % (0-0.5); Lymphocytes Absolute Auto 1.13 K/mm3 (0.9-3.2); Lymphocytes Percent Auto 23.1 % (18.3-44.2); Mean Corpuscular HGB Conc 33.1 g/dl (32-36); Mean Corpuscular Hemoglobin 31.2 pg (26-34); Mean Corpuscular Volume 94.3 fl (80-100); Mean Platelet Volume 9.2 fl (7.4-10.4); Monocytes Absolute Auto 0.5 K/mm3 (0.1-0.6); Neutrophils Percent Auto 61.2 % (45.5-73.1); Platelet Count Result 173 k/mm3 (150-375); Red Blood Count 4.74 M/mm3 (4.6-6.20); Red Cell Distribution Width 12.7 % (11.5-14.5); White Blood Count 4.9 K/mm3 (4.5-10.0)
[2022-09-15 08:39] LABS: Alanine Aminotransferase 20 U/L (6-50); Albumin Level 4.5 g/dL (3.5-5.1); Alkaline Phosphatase 80 U/L (38-126); Anion Gap 6 mmol/L (8-16); Aspartate Amino Transferase 23 U/L (17-59); Bilirubin,Total 0.7 mg/dL (0.2-1.3); Blood Urea Nitrogen 20 mg/dL (9-20); Calcium 8.9 mg/dL (8.4-10.2); Carbon Dioxide 25 mmol/L (22-30); Chloride 109 mmol/L (98-107); Cholesterol 147 mg/dL (0-200); Estimated Glomerular Filt Rate > 60; Glucose 102 mg/dL (65-110); HDL Direct 44 mg/dL; Potassium 4.3 mmol/L (3.4-5.0); Sodium 140 mmol/L (137-145); Triglycerides 66 mg/dL (<150)
[2022-09-15 08:46] LABS: LDL Cholesterol Direct 82 mg/dL
[2022-09-15 08:58] LABS: Prostate Specific Antigen 0.6 ng/mL (< OR = 4.0)
[2022-09-15 10:31] LABS: Free T4 Free Thyroxine 1.18 ng/mL (0.78-2.19)
== END 2022-09-15 07:47 | disposition home or self-care (01) ==
PROVIDERS: PCP Internal Medicine; Visit Provider Internal Medicine
DX: M85.80 Other specified disorders of bone density and structure, unspecified site (principal); Z12.5 Encounter for screening for malignant neoplasm of prostate; Z79.899 Other long term (current) drug therapy; Z13.21 Encounter for screening for nutritional disorder; Z13.220 Encounter for screening for lipoid disorders; R73.09 Other abnormal glucose
CPT/HCPCS: 36415; 80053; 80061; 82306; 83036; 84153; 84439; 84443; 85025; G0103

== ENCOUNTER 2023-01-20 11:20 | Outpatient (CLI) | payer MEDICARE, SELFPAY ==
--- NOTE | ~2023-01-20 | XR_ITS ---
EXAMINATION: XR abdomen/kub 1V INDICATION: Calculus of the kidney TECHNIQUE: Supine views of the abdomen were obtained on three radiographs. COMPARISON: 09/04/2020 FINDINGS: There is a 6 mm stone of the right kidney. A previously identified adjacent 3 mm stone is n o longer evident. There are phleboliths of the pelvis. There is a new 9 mm calcification of the right pelvis of unclear location. A moderate volume of colonic stool is present. The visualized lung bases are clear. Surgical changes are noted in the proximal left femur. There is severe lumbar spondylosis . IMPRESSION: 1. Right nephrolithiasis. 2. Right pelvic calcification of unclear location, possibly within the distal ureter or bladder. Reviewed, dictated and finalized at location B. IMPRESSION: 1. Right nephrolithiasis. 2. Right pelvic calcification of unclear location, possibly within the distal u reter or bladder.
== END 2023-01-20 11:21 | disposition home or self-care (01) ==
PROVIDERS: PCP Internal Medicine; Visit Provider Urology
DX: N20.0 Calculus of kidney (principal)
CPT/HCPCS: 74018

== ENCOUNTER 2023-01-26 06:44 | Outpatient (CLI) | payer MEDICARE, SELFPAY ==
[2023-01-26 07:15] LABS: Appearance Urine Cloudy (Clear); Bacteria Urine 1+ /hpf; Bilirubin Urine Negative (Negative); Blood Urine Trace (Negative); Color Urine Yellow (Yellow); Glucose Urine UA Negative (Negative); Ketones Urine Negative (Negative); Leukocyte Esterase Ur 3+ LEU/UL (Negative); Nitrate Urine Positive (Negative); Non Pathogenic Casts 0-2; Protein Urine Trace mg/dL (Negative); RBC Urine 0-2 /hpf (0-2); Specific Grav Ur 1.017 (1.001-1.035); Squamous Epithelial Cell Urine None seen /hpf (Few); WBC Urine >100 /hpf; pH Urine 6.5 (5.0-9.0)
[2023-01-26 07:17] LABS: Alanine Aminotransferase 20 U/L (6-50); Albumin Level 4.2 g/dL (3.5-5.1); Alkaline Phosphatase 68 U/L (38-126); Anion Gap 9 mmol/L (8-16); Aspartate Amino Transferase 22 U/L (17-59); Bilirubin,Total 0.6 mg/dL (0.2-1.3); Blood Urea Nitrogen 21 mg/dL (9-20); Carbon Dioxide 27 mmol/L (22-30); Chloride 104 mmol/L (98-107); Cholesterol 144 mg/dL (0-200); Estimated Glomerular Filt Rate > 60; Glucose 93 mg/dL (65-110); HDL Direct 38 mg/dL; Potassium 4.3 mmol/L (3.4-5.0); Sodium 140 mmol/L (137-145); Triglycerides 61 mg/dL (<150)
[2023-01-26 07:18] LABS: Add Urine Microscopic? YES
[2023-01-26 07:24] LABS: Hemoglobin A1C 5.1 % (<5.7)
[2023-01-26 07:27] LABS: LDL Cholesterol Direct 87 mg/dL
== END 2023-01-26 06:45 | disposition home or self-care (01) ==
PROVIDERS: PCP Internal Medicine; Visit Provider Internal Medicine
DX: Z13.1 Encounter for screening for diabetes mellitus (principal); Z79.899 Other long term (current) drug therapy; Z13.220 Encounter for screening for lipoid disorders; I10 Essential (primary) hypertension
CPT/HCPCS: 36415; 80053; 80061; 81001; 83036; 87086; 87088

== ENCOUNTER 2023-02-01 14:14 | Outpatient (CLI) | payer MEDICARE, SELFPAY ==
--- NOTE | ~2023-02-01 | XR_ITS ---
EXAMINATION: XR abdomen/kub 1V DATE: 02/01/2023 14:47 INDICATION: Calculus of kidney. TECHNIQUE: A supine view of the abdomen on 2 radiographs was obtained. COMPARISON: CT abdomen and pelvis 02/01/2023 FINDINGS: There are no dilated loops of bowel. There is an 8 mm stone in right kidney. There are phle boliths in the pelvis. There are 7 mm and 12 mm stones in distal right ureter. IMPRESSION: 1. Stones in the right kidney and distal right ureter. Reviewed, dictated and finalized at location E.
--- NOTE | ~2023-02-01 | CT_ITS ---
EXAMINATION: CT abdomen pelvis wo con DATE: 02/01/2023 14:56 INDICATION: Low back pain. History of urinary tract stones TECHNIQUE: Computed tomography (CT) of the abdomen and pelvis was performed without intravenous contr ast. Automated exposure control and iterative reconstruction technique were employed. Exam dose: 549 .25 mGy-cm total exam DLP. COMPARISON: 02/01/2023 KUB 01/20/2023 KUB FINDINGS: The lung bases are clear of infiltrate or consolidation. Normal heart size. No pericardial or pleural effusion. Small sliding hiatal hernia. Scattered small probable hepatic cysts. Probable renal cysts. Approximately 6.3 x 7.2 x 7.5 mm lower pole right renal calculus. Approximately 7.3 x 13 mm distal right ureteral calculus at the ureterovesical junction. Just proxima l to this is an approximately 4.5 x 6.3 mm distal right ureteral calculus. Neither these 2 calculi wa s present in the distal right ureter on 07/15/2020 CT abdomen pelvis examination. No significant hydro ureteronephrosis. Prostate enlargement and calcification. Normal appendix. No bowel obstruction or free air. Normal caliber of the abdominal aorta. No intraperitoneal or retroperitoneal free air. Diffuse idiopathic skeletal hyperostosis of the thoracic spine. Prominent multi-level degenerative disc disease of the lumbar spine. Old intertrochanteric left hip fracture. Bilateral hip osteoarthritis. IMPRESSION: 2 distal right ureteral calculi; no significant hydroureteronephrosis Nonobstructive lower pole right renal calculus Reviewed, dictated and finalized at Location A. Reviewed, dictated and finalized at location B. IMPRESSION: 2 distal right ureteral calculi; no significant hydroureteronephro sis Nonobstructive lower pole right renal calculus
== END 2023-02-01 14:15 | disposition home or self-care (01) ==
PROVIDERS: PCP Internal Medicine; Visit Provider Urology
DX: N20.2 Calculus of kidney with calculus of ureter (principal)
CPT/HCPCS: 74018; 74176

== ENCOUNTER 2023-02-11 13:04 | Outpatient (CLI) | payer MEDICARE, SELFPAY | END 2023-02-11 13:05 | disposition home or self-care (01) | LOC: ANHSURGERY 13:06 | PROVIDERS: PCP Internal Medicine; Visit Provider Urology | DX: N20.0 Calculus of kidney (principal); Z01.818 Encounter for other preprocedural examination | CPT/HCPCS: 87086; 87147; 87181; 87186 ==

== ENCOUNTER 2023-02-16 01:29 | Day surgery (SDC) | payer MEDICARE, SELFPAY ==
--- NOTE | 2023-02-10 14:01 | PC.NURSE ---
Report to the Outpatient Waiting Room, entrance under the green pavilion located off [facility], at time _0800 on date 02/16/23/ . Planned Procedure Time: __1000 . Time changes happen often and if your time is changed the preop area will call you the afternoon before. - You and your visitor will be asked to self-screen and do not enter if you have any COVID symptoms. - A mask is optional within the hospital at this time. Patients may have clear liquids (water, carbonated beverages, clear teas, apple juice) until 3 hours prior to surgery with a maximum of 20 ounces. - No food from midnight until time of surgery - Infants may have breast milk until 4 hours before surgery, formula 6 hours prior to surgery. - Children will be allowed to drink immediately following surgery. If applicable, please bring a bottle or sippy cup to assist with drinking. Juice, water, soda, and popsicles are readily available. For infants on formula, please bring formula the day of surgery. Pacifiers are allowed. Take the following medications with a SIP of water the morning of surgery: ___FLECAINIDE,GABAPENTIN/LORAZEPAM, METOPROLOL IF NEEDED DO NOT STOP ANY OF YOUR OTHER PRESCRIPTION MEDICATIONS PRIOR TO SURGERY ?EXCEPT THE FOLLOWING Medications to discontinue per physician ____ALL VITAMINS AND SUPPLEMENTS 3 DAYS PRE OP LAST DOSE02/12/23. PT STATES ASPIRIN AND IBUPROFEN LAST DOSE 02/10/[address] CULP Please no make-up, nail tajik, hairspray, perfume, deodorant, or body powder the day of surgery. No jewelry (including any body piercings) or valuables the day of surgery, leave them at home. Please take a shower or bath the night before, or the morning of, surgery with an antibacterial soap. Wear comfortable, loose fitting clothing. Children are encouraged to wear pajamas. - Jewelry must be removed prior to entering the operating room. Rings and piercings that are not removed may be cut off. - The hospital will not accept responsibility for valuables. - Please leave all valuables, including medications, at home the day of surgery. If you are going home after surgery, a licensed motor coach driver must drive you home. - NO public transportation without another adult if you receive anesthesia. - We recommend that an adult stay with you for 24 hours following discharge. - We also recommend that you do not drive, make important decision, drink alcoholic beverages, or take any drugs that were not prescribed by your health care provider for at least 24 hours after your discharge time. For Pediatric surgeries, we recommend two adults accompany the child home. Follow any additional instructions given to you from your surgeon. If you or anyone in your household have experienced Covid symptoms in the past week, please notify your surgeon or the nurse liaison at the phone number below for possible testing. Telephone instructions given to __PATIENT and asked if any additional questions and then verbalized understanding. Patient advised to call surgeon office or pre surgery nurse liaison [phone] if any additional questions.
[2023-02-10 14:15] VITALS: BMI 29.2
[2023-02-16] VITALS (8 sets, daily range): BP systolic 115–160; BP diastolic 74–93; PULSE 57–67; RESP 10–18; TEMP 36.4–37; O2SAT 98–100
--- NOTE | ~2023-02-16 | XR_ITS ---
EXAMINATION: XR retrograde pyelo w/stent RT DATE: 02/16/2023 10:30 INDICATION: Right internal ureteral stent placement TECHNIQUE: Fluoroscopic images from a right internal ureteral stent placement are submitted for shandra ramires 17 seconds of fluoroscopy time. FINDINGS: There is a right double-J internal ureteral stent projecting in expected position, with proximal [place] loop at the level of the renal pelvis and distal loop in the pelvis within the bladder lumen. IMPRESSION: 1. Right internal ureteral stent placement. Please refer to real-time procedural findings for detglo ls. Reviewed, dictated and finalized at location L. IMPRESSION: 1. Right internal ureteral stent placement. Please refer to real-time procedu ral findings for details.
--- NOTE | 2023-02-16 07:33 | PM.IMHP ---
H&P: HPI History of Present Illness Date/Time: 02/16/23 07:33 Chief Complaint: right ureteral and renal calculus Narrative: 77 year old male found to have 2 distal right ureteral calculi up to 1 cm. Also with a right renal stone. Review of Systems Review of Systems: All systems reviewed & are unremarkable except as noted in HPI and below [facility] Past Medical History Medical History Anxiety Arthritis Atrial fibrillation and flutter BCC (basal cell carcinoma of skin) Benign essential hypertension BMI 26.0-26.9,adult BMI 27.0-27.9,adult BMI 28.0-28.9,adult BMI 29.0-29.9,adult BPPV (benign paroxysmal positional vertigo) Chest pain Colon cancer screening Degenerative arthritis of knee, bilateral DJD (degenerative joint disease) Encounter for Medicare annual wellness exam Encounter for routine adult health examination without abnormal findings Encounter for special screening examination for neoplasm of prostate Exposure to hepatitis C Flail chest Flank pain Hearing loss Hematuria Hx of multiple trauma Hyperkalemia Hypertension Insomnia Internal hemorrhoids Lesion of throat Lymphedema Microscopic hematuria Nephrolithiasis On longterm drug therapy On terminal carman drug therapy Osteoporosis Rash Skin lesion Skin tag Strain of latissimus dorsi muscle Thrombophlebitis leg superficial UTI (urinary tract infection) Vestibular dizziness Weight gain Surgical History Surgical History Femur fracture, left Repair compound fracture left femur H/O shoulder surgery History of foot surgery bilateral Left tibial fracture S/P cataract surgery S/P hemorrhoidectomy REUA, excision of hemorrhoidal skin tag 04/28/22. KM Family History Family History Father Hypertension Acute myocardial infarction Alcoholism Heart disease Mother Hypertension Family history of Alzheimer's disease Family history of heart disease in male family member before age 55 Family history of hypercholesterolemia Family history of cardiovascular disease Heart disease Depression Sibling Asthma Hypertension Social History Social History Smoking status: Never smoker Second hand tobacco smoke exposure: No Alcohol intake: never Alcohol use details: does not drink due to Afib Substance use: never Substance use type: does not use Lack of Transportation: No Lack of Food: Never True Current Housing: I Have Housing Concerned About Future Housing: No Difficulty Paying Gas/Electric Bills: No Difficulty Paying for Meds: No Currently Unemployed: No Education: Bachelor's Degree Difficulty w/ Childcare or Family Care: No Living arrangements: with family Occupation/Education: retired Gender identity (if verbalized by the patient): Male Spiritual care concerns: No Meds Home Medications and Allergies Home Medications Medication Instructions Recorded Confirmed Type omega-3 fatty acids 1,000 mg 2,000 mg PO BID 06/22/19 02/10/23 History capsule (Fish Oil Concentrate) cyanocobalamin (vitamin B-12) 1,000 mcg PO DAILY 07/18/20 02/10/23 History 1,000 mcg tablet flecainide 100 mg tablet 100 mg PO Q12H 06/23/21 02/10/23 History gabapentin 600 mg tablet 600 mg PO TID 06/23/21 02/10/23 History garlic 100 mg tablet 100 mg PO DAILY 08/21/21 02/10/23 History potassium citrate 10 mEq (1,080 20 meq PO DAILY 09/02/21 02/10/23 History mg) tablet,extended release acetaminophen 500 mg tablet 1,000 mg PO HS PRN Pain 04/24/22 02/10/23 History ibuprofen 200 mg tablet 200 mg PO Q6H PRN Pain 04/24/22 02/10/23 History cholecalciferol (vitamin D3) 50 50 mcg PO DAILY 05/05/22 02/10/23 History mcg (2,000 unit) capsule lorazepam 1 mg tablet 1 mg PO TID #270 tabs 07/15/22 02/10/23 Rx
--- NOTE | 2023-02-16 07:56 | WPDANESEPP ---
Anes - Eval Pre Procedure Procedure: Operation Date: 02/16/23 10:00 Proposed Procedures p Cystoscopy, Right Ureteroscopy, Right Retrograde Pyelogram, Possible Right Stone Extraction, Right Stent Placement, Holmium Laser - Rajinder Truong MD Date/Time: 02/16/23 07:56 Pre Op Diagnosis: Right ureter and kidney stones Patient Data Age: 77 Gender: M Height: 1.93 m Weight: 108.9 kg Allergies Allergy/AdvReac Type Severity Reaction Status Date / Time adhesive tape Allergy Intermediate blisters Verified 02/10/23 13:46 cephalexin Allergy Mild Rash Verified 02/10/23 13:46 latex Allergy Mild Rash Verified 02/10/23 13:46 Penicillins Allergy Mild Rash Verified 02/10/23 13:46 MARIA ELENA Inhibitors AdvReac Mild Cough Verified 02/10/23 13:46 Home Medications Medication Instructions Recorded Confirmed Type omega-3 fatty acids 1,000 mg 2,000 mg PO BID 06/22/19 02/10/23 History capsule (Fish Oil Concentrate) cyanocobalamin (vitamin B-12) 1,000 mcg PO DAILY 07/18/20 02/10/23 History 1,000 mcg tablet flecainide 100 mg tablet 100 mg PO Q12H 06/23/21 02/10/23 History gabapentin 600 mg tablet 600 mg PO TID 06/23/21 02/10/23 History garlic 100 mg tablet 100 mg PO DAILY 08/21/21 02/10/23 History potassium citrate 10 mEq (1,080 20 meq PO DAILY 09/02/21 02/10/23 History mg) tablet,extended release acetaminophen 500 mg tablet 1,000 mg PO HS PRN Pain 04/24/22 02/10/23 History ibuprofen 200 mg tablet 200 mg PO Q6H PRN Pain 04/24/22 02/10/23 History cholecalciferol (vitamin D3) 50 50 mcg PO DAILY 05/05/22 02/10/23 History mcg (2,000 unit) capsule lorazepam 1 mg tablet 1 mg PO TID #270 tabs 07/15/22 02/10/23 Rx losartan 50 mg tablet See Rx Instructions .Route 07/27/22 02/10/23 Rx .COMPLEX #180 tabs zolpidem 10 mg tablet 10 mg PO QHS 07/29/22 02/10/23 History aspirin 81 mg capsule 81 mg PO HS 09/17/22 02/10/23 History folic acid 1 mg tablet See Rx Instructions .Route 10/12/22 02/10/23 Rx .COMPLEX #90 tabs finasteride 5 mg tablet 5 mg PO HS #90 tabs 11/23/22 02/10/23 Rx alendronate 70 mg tablet See Rx Instructions .Route 01/12/23 02/10/23 Rx .COMPLEX #12 tabs metoprolol succinate 50 mg 50 mg PO PRN PRN Tachycardia 02/01/23 02/10/23 History tablet,extended release 24 hr Patient hx anesthesia problems: none Family hx anesthesia problems: none Results Review: All pre-operative results and documents have been reviewed as part of the pre-operative evaluation. [facility] Past Medical History Medical History Anxiety Arthritis Atrial fibrillation and flutter BCC (basal cell carcinoma of skin) Benign essential hypertension BMI 26.0-26.9,adult BMI 27.0-27.9,adult BMI 28.0-28.9,adult BMI 29.0-29.9,adult BPPV (benign paroxysmal positional vertigo) Chest pain Colon cancer screening Degenerative arthritis of knee, bilateral DJD (degenerative joint disease) Encounter for Medicare annual wellness exam Encounter for routine adult health examination without abnormal findings Encounter for special screening examination for neoplasm of prostate Exposure to hepatitis C Flail chest Flank pain Hearing loss Hematuria Hx of multiple trauma Hyperkalemia Hypertension Insomnia Internal hemorrhoids Lesion of throat Lymphedema Microscopic hematuria Nephrolithiasis On correction drug therapy On emt intermediate drug therapy Osteoporosis Rash Skin lesion Skin tag Strain of latissimus dorsi muscle Thrombophlebitis leg superficial UTI (urinary tract infection) Vestibular dizziness Weight gain Surgical History Surgical History Femur fracture, left Repair compound fracture left femur H/O shoulder surgery History of foot surgery bilateral Left tibial fracture S/P cataract surgery S/P hemorrhoidectomy REUA, excision of hemorrhoidal skin tag 04/28/22. KM Family History Family History (Reviewed 02/16/23 @ 08:00 by Moses Gonzalez
--- NOTE | 2023-02-16 09:18 | WPDHPUPDATE1 ---
History and Physical Update Update Date/Time: 02/16/23 09:18 History and Physical has been reviewed, including an updated exam of the patient. There are NO changes in the patient's condition. Risks, benefits, and alternatives have been discussed and questions answered. Patient agrees to proceed with procedure.
--- NOTE | 2023-02-16 09:21 | WPDANESEPPF ---
Anes - Initial Pre Proc Eval Procedure: Operation Date: 02/16/23 10:00 Proposed Procedures p Cystoscopy, Right Ureteroscopy, Right Retrograde Pyelogram, Possible Right Stone Extraction, Right Stent Placement, Holmium Laser - Rajinder Truong MD Date/Time: 02/16/23 09:21 Surgeon: Rajinder Truong MD Pre Op Diagnosis: Right ureter and kidney stones Patient Data Age: 77 Gender: M Height: 1.93 m Weight: 105.9 kg Allergies Allergy/AdvReac Type Severity Reaction Status Date / Time adhesive tape Allergy Intermediate blisters Verified 02/10/23 13:46 cephalexin Allergy Mild Rash Verified 02/10/23 13:46 latex Allergy Mild Rash Verified 02/10/23 13:46 Penicillins Allergy Mild Rash Verified 02/10/23 13:46 MARIA ELENA Inhibitors AdvReac Mild Cough Verified 02/10/23 13:46 Home Medications Medication Instructions Recorded Confirmed Type omega-3 fatty acids 1,000 mg 2,000 mg PO BID 06/22/19 02/10/23 History capsule (Fish Oil Concentrate) cyanocobalamin (vitamin B-12) 1,000 mcg PO DAILY 07/18/20 02/10/23 History 1,000 mcg tablet flecainide 100 mg tablet 100 mg PO Q12H 06/23/21 02/10/23 History gabapentin 600 mg tablet 600 mg PO TID 06/23/21 02/10/23 History garlic 100 mg tablet 100 mg PO DAILY 08/21/21 02/10/23 History potassium citrate 10 mEq (1,080 20 meq PO DAILY 09/02/21 02/10/23 History mg) tablet,extended release acetaminophen 500 mg tablet 1,000 mg PO HS PRN Pain 04/24/22 02/10/23 History ibuprofen 200 mg tablet 200 mg PO Q6H PRN Pain 04/24/22 02/10/23 History cholecalciferol (vitamin D3) 50 50 mcg PO DAILY 05/05/22 02/10/23 History mcg (2,000 unit) capsule lorazepam 1 mg tablet 1 mg PO TID #270 tabs 07/15/22 02/10/23 Rx losartan 50 mg tablet See Rx Instructions .Route 07/27/22 02/10/23 Rx .COMPLEX #180 tabs zolpidem 10 mg tablet 10 mg PO QHS 07/29/22 02/10/23 History aspirin 81 mg capsule 81 mg PO HS 09/17/22 02/10/23 History folic acid 1 mg tablet See Rx Instructions .Route 10/12/22 02/10/23 Rx .COMPLEX #90 tabs finasteride 5 mg tablet 5 mg PO HS #90 tabs 11/23/22 02/10/23 Rx alendronate 70 mg tablet See Rx Instructions .Route 01/12/23 02/10/23 Rx .COMPLEX #12 tabs metoprolol succinate 50 mg 50 mg PO PRN PRN Tachycardia 02/01/23 02/10/23 History tablet,extended release 24 hr Patient hx anesthesia problems: none Family hx anesthesia problems: none Results Review: All pre-operative results and documents have been reviewed as part of the pre-operative evaluation. [facility] Past Medical History Medical History Anxiety Arthritis Atrial fibrillation and flutter BCC (basal cell carcinoma of skin) Benign essential hypertension BMI 26.0-26.9,adult BMI 27.0-27.9,adult BMI 28.0-28.9,adult BMI 29.0-29.9,adult BPPV (benign paroxysmal positional vertigo) Chest pain Colon cancer screening Degenerative arthritis of knee, bilateral DJD (degenerative joint disease) Encounter for Medicare annual wellness exam Encounter for routine adult health examination without abnormal findings Encounter for special screening examination for neoplasm of prostate Exposure to hepatitis C Flail chest Flank pain Hearing loss Hematuria Hx of multiple trauma Hyperkalemia Hypertension Insomnia Internal hemorrhoids Lesion of throat Lymphedema Microscopic hematuria Nephrolithiasis On care home drug therapy On exterminator termite drug therapy Osteoporosis Rash Skin lesion Skin tag Strain of latissimus dorsi muscle Thrombophlebitis leg superficial UTI (urinary tract infection) Vestibular dizziness Weight gain Surgical History Surgical History Femur fracture, left Repair compound fracture left femur H/O shoulder surgery History of foot surgery bilateral Left tibial fracture S/P cataract surgery S/P hemorrhoidectomy REUA, excision of hemorrhoidal skin tag 04/28/22. KM Family History Fami
[2023-02-16] MEDS: LACTATED RINGERS 1,000 ML 30 ML IV CONT (09:32)
[2023-02-16] MEDS: ceFAZolin 2 GM/D5W 50 ML 2 GM/50 ML BAG IVPB (09:38)
[2023-02-16] MEDS: LIDOCAINE HCL 2% GEL UROJET 10 ML PKG MUCOUS MEM (10:03)
--- NOTE | 2023-02-16 10:14 | SUR.OPER ---
Dr. Truong refused to wear laser goggles
--- NOTE | 2023-02-16 10:26 | W.PM.PROC2 ---
Procedure Note - Detailed Date of Procedure 02/16/23 Pre-op Diagnosis Right ureter and kidney stones Post-op Diagnosis Same (Bladder calculus and right renal calculus) Procedure Performed Cystoscopy, right retrograde pyelogram, right ureteroscopy with holmium laser right renal stone, right ureteral stent placement 4.8 Cypriot contour, holmium laser of bladder stone 1.5 cm. With stone extraction. Surgeon Rajinder Truong MD Anesthesia General Description of Procedure Patient is taken to the operative suite correctly identified. Once anesthesia was obtained was placed in dorsal lithotomy position and prepped and draped usual sterile fashion. Twenty-two Cypriot scope inserted the bladder. A bladder stone was visualized. This measured approximately 1-1.5 cm. The right ureteral orifice was then cannulated with a guidewire. It was dilated with an 8/10 dilator. Rigid ureteral scope was then inserted the distal ureter. There were no other ureteral stones. I then placed a mini flexible ureteral scope up into the kidney. No other ureteral stones were noted. Stone was located in the lower pole system. Using a 200 micron fiber we dusted the stone. Pyelogram was then performed to confirm placement the stent. 4.8 Cypriot contour stent was then placed with the proximal end coiled up in the kidney and the distal in the bladder. The bladder stone was then lasered. Stone fragments were retrieved and sent for analysis. This most likely is a stone that was in his ureter and passed the bladder. 2% viscous lidocaine was then inserted urethra patient is taken recovery stable condition. He will follow-up in approximately 1 week for stent removal in the office. This completes dictation on this patient. Please send a copy of this op note to my office Estimated Blood Loss 0 Drains Yes Packing No Pathology Yes Complications No immediate complications Condition Stable Disposition PACU
[2023-02-16] MEDS: oxyCODONE HCL (*CRX) 5 MG TAB IR PO (11:22)
== END 2023-02-16 12:25 | disposition home or self-care (01) ==
PROVIDERS: PCP Internal Medicine; Visit Provider Urology
PROC: (CPT 52352; principal; 2023-02-16 10:00)
DX: N20.0 Calculus of kidney (principal); N21.0 Calculus in bladder; I10 Essential (primary) hypertension; I48.91 Unspecified atrial fibrillation; F41.9 Anxiety disorder, unspecified; M81.0 Age-related osteoporosis without current pathological fracture; Z79.82 Long term (current) use of aspirin
CPT/HCPCS: 52356; 74420; 82365; 87086; 87147; 87181; 87186; 88300; A9270; C1758; C1769; C2617; J0690; J2371; J2405; J2704; J3010; J7120; Q9966

== ENCOUNTER 2023-05-10 06:50 | Outpatient (CLI) | payer MEDICARE, SELFPAY ==
[2023-05-10 07:21] LABS: Basophils Percent Auto 0.7 % (0.2-1.2); Eosinophils Absolute Auto 0.1 K/mm3 (0-0.3); Eosinophils Percent Auto 2.3 % (0-4.4); Hematocrit 45.4 % (42.0-52.0); Hemoglobin 14.5 g/dL (14.0-18.0); Immature Granulocyte Absolute 0.03 K/mm3 (0.00-0.031); Immature Granulocyte Percent A 0.7 % (0-0.5); Lymphocytes Absolute Auto 1.12 K/mm3 (0.9-3.2); Lymphocytes Percent Auto 26.2 % (18.3-44.2); Mean Corpuscular HGB Conc 31.9 g/dl (32-36); Mean Corpuscular Hemoglobin 30.7 pg (26-34); Mean Platelet Volume 9.1 fl (7.4-10.4); Monocytes Absolute Auto 0.5 K/mm3 (0.1-0.6); Monocytes Percent Auto 11.2 % (2.6-8.5); Neutrophils Absolute Auto 2.5 K/mm3 (1.3-6.7); Neutrophils Percent Auto 58.9 % (45.5-73.1); Platelet Count Result 178 k/mm3 (150-375); Red Blood Count 4.73 M/mm3 (4.6-6.20); Red Cell Distribution Width 13.1 % (11.5-14.5); White Blood Count 4.3 K/mm3 (4.5-10.0)
[2023-05-10 07:27] LABS: Appearance Urine Cloudy (Clear); Bacteria Urine 4+ /hpf; Bilirubin Urine Negative (Negative); Blood Urine Negative (Negative); Color Urine Yellow (Yellow); Glucose Urine UA Negative (Negative); Ketones Urine Negative (Negative); Leukocyte Esterase Ur 2+ LEU/UL (Negative); Nitrate Urine Negative (Negative); Non Pathogenic Casts 0-2; Protein Urine Negative (Negative); RBC Urine 0-2 /hpf (0-2); Specific Grav Ur 1.023 (1.001-1.035); Squamous Epithelial Cell Urine None seen /hpf (Few); WBC Urine 51-100 /hpf
[2023-05-10 07:29] LABS: Hemoglobin A1C 4.8 % (<5.7)
[2023-05-10 07:30] LABS: Alanine Aminotransferase 20 U/L (6-50); Albumin Level 4.4 g/dL (3.5-5.1); Alkaline Phosphatase 64 U/L (38-126); Anion Gap 6 mmol/L (8-16); Aspartate Amino Transferase 26 U/L (17-59); Bilirubin,Total 0.8 mg/dL (0.2-1.3); Blood Urea Nitrogen 20 mg/dL (9-20); Calcium 9.4 mg/dL (8.4-10.2); Carbon Dioxide 30 mmol/L (22-30); Chloride 105 mmol/L (98-107); Cholesterol 175 mg/dL (0-200); Estimated Glomerular Filt Rate > 60; Glucose 92 mg/dL (65-110); HDL Direct 47 mg/dL; Potassium 4.3 mmol/L (3.4-5.0); Sodium 141 mmol/L (137-145); Triglycerides 61 mg/dL (<150)
[2023-05-10 07:40] LABS: Add Urine Microscopic? YES
[2023-05-10 07:41] LABS: LDL Cholesterol Direct 98 mg/dL
== END 2023-05-10 06:51 | disposition home or self-care (01) ==
PROVIDERS: PCP Internal Medicine; Visit Provider Internal Medicine
DX: Z13.1 Encounter for screening for diabetes mellitus (principal); Z79.899 Other long term (current) drug therapy; Z13.220 Encounter for screening for lipoid disorders; N39.0 Urinary tract infection, site not specified; I10 Essential (primary) hypertension
CPT/HCPCS: 36415; 80053; 80061; 81001; 83036; 85025; 87086; 87088

== ENCOUNTER 2023-06-03 08:40 | Outpatient (CLI) | payer MEDICARE, SELFPAY ==
--- NOTE | ~2023-06-03 | MR_ITS ---
EXAMINATION: MR brain/brain stem wo/w con DATE: 06/03/2023 09:39 INDICATION: Headache, unspecified. TECHNIQUE: Magnetic resonance imaging (MRI) of the brain and brainstem was performed without and with 20 mL MultiHance intravenous contrast. COMPARISON: Brain MRI 08/03/2013 FINDINGS: There are scattered areas of nonspecific increased T2-weighted signal intensity in the cere bral white matter, which is within normal limits for the patient's age. There is no intracranial hemo rrhage, acute infarction, or abnormal intracranial mass lesion. The ventricles are normal in size. Th e paranasal sinuses are clear. The mastoid air cells are normal. There are likely changes of ocular l ens replacement surgeries. IMPRESSION: 1. Normal aging brain. Reviewed, dictated and finalized at location A. RIFUGE SEPARATOR TENDER IMPRESSION: 1. Normal aging brain.
== END 2023-06-03 08:41 | disposition home or self-care (01) ==
PROVIDERS: PCP Internal Medicine; Visit Provider Internal Medicine
DX: R51.9 Headache, unspecified (principal)
CPT/HCPCS: 70553; A9577

== ENCOUNTER 2023-10-02 07:34 | Outpatient (CLI) | payer MEDICARE, SELFPAY ==
[2023-10-02 08:18] LABS: Alanine Aminotransferase 18 U/L (6-50); Albumin Level 4.1 g/dL (3.5-5.1); Alkaline Phosphatase 80 U/L (38-126); Anion Gap 5 mmol/L (4-12); Aspartate Amino Transferase 22 U/L (17-59); Bilirubin,Total 0.6 mg/dL (0.2-1.3); Blood Urea Nitrogen 20 mg/dL (9-20); Calcium 9.1 mg/dL (8.4-10.2); Carbon Dioxide 24 mmol/L (22-30); Chloride 111 mmol/L (98-107); Cholesterol 137 mg/dL (0-200); Estimated Glomerular Filt Rate > 60; Glucose 86 mg/dL (65-110); HDL Direct 46 mg/dL; Potassium 4.1 mmol/L (3.4-5.0); Sodium 140 mmol/L (137-145); Triglycerides 88 mg/dL (<150)
[2023-10-02 08:30] LABS: LDL Cholesterol Direct 87 mg/dL
[2023-10-02 10:29] LABS: Free T4 Free Thyroxine 1.13 ng/mL (0.78-2.19); Vitamin D 25 Hydroxy 43.3 ng/mL
== END 2023-10-02 07:35 | disposition home or self-care (01) ==
PROVIDERS: PCP Internal Medicine; Visit Provider Internal Medicine
DX: Z13.1 Encounter for screening for diabetes mellitus (principal); Z79.899 Other long term (current) drug therapy; Z13.220 Encounter for screening for lipoid disorders; I10 Essential (primary) hypertension; E55.9 Vitamin D deficiency, unspecified; Z13.29 Encounter for screening for other suspected endocrine disorder
CPT/HCPCS: 36415; 80053; 80061; 82306; 83036; 84439; 84443

== ENCOUNTER 2023-12-22 11:52 | Outpatient (CLI) | payer MEDICARE, SELFPAY ==
--- NOTE | ~2023-12-22 | DEXA_ITS ---
Bone Density Report Name: RYAN RAM Age: 78 Sex: Male Ethnicity: White Date of : 1945 Indication: screening for osteoporosis; parental hip fracture; height loss; prior fracture; cancer; rheumatoid arthritis; Referring Provider: MANOJ CHIANG Study: Bone densitometry was performed. Exam Date: December 22, 2023 Accession number: [id number] Bone Density: Region BMD T-score Z-score Classification AP Spine(L1, L2, L3) 1.388 2.9 3.9 Normal Femoral Neck (Right) 0.668 -1.9 -0.5 Osteopenia Total Hip (Right) 0.806 -1.5 -0.6 Osteopenia World Health Organization criteria for BMD impression classify patients as: Normal (T-score at or above -1.0), Osteopenia (T-score between -1.0 and -2.5), or Osteoporosis (T-score at or below -2.5). 10-year Fracture Risk(1): Major Osteoporotic Fracture 30% Hip Fracture 21% Reported Risk Factors: [place] (), Neck BMD=0.668, BMI=31.7, previous fracture, parental fracture, rheumatoid arthritis (1) FRAX(R) Version 3.08. Fracture probability calculated for an untreated patient. Fracture probability may be lower if the patient has received treatment. Clinical Information Provided by Patient: Has had a low trauma fracture Parent has had a hip fracture Has rheumatoid arthritis Has used the following medications: Fosamax (i.e. alendronate), Vitamin D, Calcium Has the following medical conditions: Cancer Patient maximum height was 76 No regular weight bearing exercise Drinks caffeinated beverages Impression: The patient has low bone mass, based on the Right Femoral Neck T-score. The patient has an estimated ten-year risk of hip fracture of 21% and an estimated ten-year risk of major fracture of 30%, based on the WHO FRAX algorithm. The patient has risk factors, including: parental hip fracture, previous fracture. Discussion: BONE DENSITY IS LOW AT ONE OR MORE SKELETAL SITES. THE PATIENT'S BMD AND CLINICAL RISK FACTORS CONTRIBUTE TO THIS PATIENT'S HIGH RISK OF FRACTURE. This patient's lowest T-score is low at one or more skeletal sites. It meets the World Health Organization's (WHO) criteria for ?low bone mass? (T-score between -1.0 and -2.5). The patient's 10-year risk of hip fracture and 10 year risk of a major osteoporotic fracture as calculated by FRAX exceeds the threshold where pharmacological therapy is recommended by the National Osteoporosis Foundation (NOF). However, all treatment decisions require clinical judgment and consideration of individual patient factors, including patient preferences, comorbidities, previous drug use, risk factors not captured in the FRAX model (e.g., frailty, falls, vitamin D deficiency, increased bone turnover, interval significant decline in bone density) and possible under or overestimation of fracture risk by FRAX. The patient should follow a healthful lifestyle (good nutrition with adequate calcium and vitamin D, and appropriate weight-bearing exercise
== END 2023-12-22 11:53 | disposition home or self-care (01) ==
LOC: CHSIMG 11:55
PROVIDERS: PCP Internal Medicine; Visit Provider Internal Medicine
DX: M85.88 Other specified disorders of bone density and structure, other site (principal)
CPT/HCPCS: 77080

== ENCOUNTER 2024-02-22 15:48 | Outpatient (CLI) | payer MEDICARE, SELFPAY ==
[2024-02-22 16:29] LABS: Basophils Percent Auto 0.6 % (0.2-1.2); Eosinophils Absolute Auto 0.2 K/mm3 (0-0.3); Eosinophils Percent Auto 2.9 % (0-4.4); Hematocrit 44.7 % (42.0-52.0); Hemoglobin 14.7 g/dL (14.0-18.0); Immature Granulocyte Absolute 0.03 K/mm3 (0.00-0.031); Immature Granulocyte Percent A 0.5 % (0-0.5); Lymphocytes Absolute Auto 1.36 K/mm3 (0.9-3.2); Lymphocytes Percent Auto 20.7 % (18.3-44.2); Mean Corpuscular HGB Conc 32.9 g/dl (32-36); Mean Corpuscular Hemoglobin 30.6 pg (26-34); Mean Corpuscular Volume 93.1 fl (80-100); Monocytes Absolute Auto 0.7 K/mm3 (0.1-0.6); Monocytes Percent Auto 10.3 % (2.6-8.5); Neutrophils Absolute Auto 4.3 K/mm3 (1.3-6.7); Platelet Count Result 172 k/mm3 (150-375); Red Cell Distribution Width 12.7 % (11.5-14.5); White Blood Count 6.6 K/mm3 (4.5-10.0)
[2024-02-22 16:39] LABS: Alanine Aminotransferase 19 U/L (6-50); Albumin Level 4.5 g/dL (3.5-5.1); Alkaline Phosphatase 62 U/L (38-126); Anion Gap 12 mmol/L (4-12); Aspartate Amino Transferase 28 U/L (17-59); Bilirubin,Total 0.9 mg/dL (0.2-1.3); Blood Urea Nitrogen 18 mg/dL (9-20); Calcium 9.3 mg/dL (8.4-10.2); Carbon Dioxide 24 mmol/L (22-30); Chloride 102 mmol/L (98-107); Cholesterol 141 mg/dL (0-200); Estimated Glomerular Filt Rate > 60; Glucose 92 mg/dL (65-110); HDL Direct 48 mg/dL; Potassium 4.2 mmol/L (3.4-5.0); Sodium 138 mmol/L (137-145); Triglycerides 60 mg/dL (<150)
[2024-02-22 16:50] LABS: LDL Cholesterol Direct 74 mg/dL
[2024-02-22 17:11] LABS: Hemoglobin A1C 5.2 % (<5.7)
[2024-02-22 17:12] LABS: Free T4 Free Thyroxine 0.97 ng/mL (0.78-2.19)
== END 2024-02-22 15:49 | disposition home or self-care (01) ==
LOC: ANHLAB 15:54
PROVIDERS: PCP Internal Medicine; Visit Provider Internal Medicine
DX: Z79.899 Other long term (current) drug therapy (principal); Z13.220 Encounter for screening for lipoid disorders; Z13.1 Encounter for screening for diabetes mellitus; Z13.29 Encounter for screening for other suspected endocrine disorder; I10 Essential (primary) hypertension
CPT/HCPCS: 36415; 80053; 80061; 83036; 84439; 85025

== ENCOUNTER 2024-08-28 07:15 | Outpatient (CLI) | payer MEDICARE, SELFPAY ==
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
--- OUTSIDE RECORDS SUMMARY | 2024-08-28 07:19 | XMS_ITS | Encounter Summary ---
Author Organization [facility] Address [address] [place] [id number] Care Team Providers Care Business Process Engineer Name Role Phone Unavailable Primary Care Provider Unavailabl e Encounter Details Date Type Department Care Team (Latest Contact Info) Description 04/12/2018 Abstract [facility] , Isabel Cote MD Social History Tobacco Use Types Packs/Day Years Used Date Smoking Tobacco: Never Assessed Sex and Gender Information Value Date Recorded Sex Assigned at Not on file Legal Sex Male 9:16 PM CDT Gender Identity Not on file Sexual Orientation Not on file documented as of this encounter Plan of Treatment Not on file documented as of this encounter Visit Diagnoses Not on filedocumented in this encounter
--- OUTSIDE RECORDS SUMMARY | 2024-08-28 07:19 | XMS_ITS | Encounter Summary ---
Author Organization [facility] Address [address] [place] [address] Care Team Providers Care Bar Examiner Name Role Phone Jonas Mullins MD Primary Care Provider [phone] Kindra Nascimento OD Unavailable [phone] Reason for Visit * Reason Onset Date Comments Prior Auth 04/19/2019 Gabapentin 600mg NPR Encounter Details Date Type Department Care Team ([facility] Contact Info) Description 04/19/2019 Telephone [facility] [address] [facility] [address] [place] [address] Keith Naik MD [address] [place] [address] Prior Auth (Gabapentin 600mg NPR) Social History Tobacco Use Types Packs/Day Years Used Date Smoking Tobacco: Never Smokeless Tobacco: Never Alcohol Use Standard Drinks/Week Comments Yes 0 (1 standard drink = 0.6 oz pur e alcohol) Sex and Gender Information Value Date Recorded Sex Assigned at Not on file Legal Sex Male 12:58 AM COMMUNICATIONS MARKETING INTERN Gender Identity Not on file Sexual Orientation Not on file documented as of this encounter Plan of Treatment Not on file documented as of this encounter Goals Goal Patient Goal Type Associated Problems Recent Progress Patient-Stated? Author [facility] Chronic Pain Care Plan Chronic Care Management On track(2023 2:49 PM COMMUNICATIONS MARKETING INTERN) Marianela Molina, RN Note: Problem: Chronic Pain Goals: 1. Minimize further functional decline 2. Maximize quality of life 3. 

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
--- OUTSIDE RECORDS SUMMARY | 2024-08-28 07:20 | XMS_ITS | Clinical Summary ---
Author Organization [facility] Address [address] [place] [address] Care Team Providers Care Storage Battery Charger Name Role Phone Jonas Mullins MD Primary Care Provider [phone] Source Comments [facility],non-owned Affiliates and Associated Physician Practices is amultiple site organization consisting of ambulatory clinics and hospital sitesin [place], [place], [place] and [place]. This disclosure is being madepursuant to the Care Everywhere program and may not contain all information available regarding this patient. Last updated 18.[facility] [employer] Social History Tobacco Use Types Packs/Day Years Used Date Smoking Tobacco: Never Assessed Sex and Gender Information Value Date Recorded Sex Assigned at Not on file Gender Identity Not on file Sexual Orientation Not on file Plan of Treatment Health Maintenance Due Date Last Done Comments HEPATITIS C SCREENING 02/27/1965 DTAP/TDAP/TD VACCINES (1 - Tdap) 1966 PNEUMOCOCCAL VACCINE 50+ (1 of 1 - PCV) 1997 ZOSTER VACCINE (1 of 2) 1997 Respiratory Syncytial Virus (RSV) Vaccine Pt: or over 60 yrs (1 - 1-dose 75+ series) 2022 COVID-19 VACCINE ( - 2023-2 5 season) 2024 INFLUENZA VACCINE (#1) 2024 DEPRESSION SCREENING 06/07/2024 MEDICARE AWV CALENDAR YEAR 2024 HEPATITIS B VACCINE Aged Out No longe r eligible based on patient's age to complete this topic HIB VACCINE Aged Out No longer eligi ble based on patient's age to complete this topic HPV VACCINE Aged Out No longer eligi ble based on patient's age to complete this topic MENINGOCOCCAL (Group B) VACC INE SHARED DECISION-MAKING Aged Out No longer eligibl e based on patient's age to complete this topic MENINGOCOCCAL GROUPS A/C/Y/W VACCINE Aged Out No longer eligible b ased on patient's age to complete this topic Care Teams Storage Battery Charger Relationship Specialty Start Date End Date Jonas Mullins MD [address] [place] [address] PCP - General 06/27/18
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
--- OUTSIDE RECORDS SUMMARY | 2024-08-28 07:20 | XMS_ITS | Continuity of Care Document ---
Author Organization [facility] Address [address] [place] [address] Phone Care Team Providers Care Svp Group Director Name Role Phone Ori Mccarthy Unavailable Unavailable Allergies, Adverse Reactions, Alerts Substance Reaction Status Criticality TAPE, OCCLUSIVE ADHESIVE Active No Information latex Active No Information CEPHALEXIN MONOHYDRATE Active No In formation Procedures Procedure Date Kenalog 40mg/mL Asp/inject major joint or bursa w/o US g uidance Kenalog 40mg/mL Asp/inject major joint or bursa w/o US g uidance Office/outpatient visit,est, mod 2022 X-ray exam knee, 4+ views Kenalog 40mg/mL Drain/inject major jointor bursa w/o US guidance Office/outpatient visit,est, mod 2022 X-ray Exam Hip Unilat With Pelvis When P erf 2-3 View X-ray exam knee, 4+ views X-ray exam knee, 3 views Office/outpatient visit,est, mod 2018 Asp/inject major joint or bursa w/o US g uidance Kenalog Triamcinolone acetonide inj X-ray exam ankle, minimum 3 views X-ray exam foot, minimum 3 views 2018 Office/outpatient visit,new, mod 2018 Asp/inject intermed joint/bursa w/o US g uidance Depo Medrol Methylprednisolone 40 MG inj Advance Directives Directive Yes / No Effective Date File Name No Information Encounters Encounter Description Practice Location Reason(s) For Visit Diagnoses Date Provider Providers Copied on Encounter Office/outpa tient visit,[facility], [facility], [address] [address], [place], [place], [id number], [place] tel:[phone] [email or web address] left knee (chief complaint) Pain in left kneePain in right kneeBilateral primary osteoarthritis of knee 3 Shari Sharad er. [address] [facility] [address], [place], [place], [id number] , [place]. tel:[phone] Referring Provider: Jefry Soliz, [address] [address], [place], [address] . tel:[phone] Office/outpa tient visit,est, [facility], [address] [address], [place], [place], [id number], [place] tel:[phone] [email or web address] Left Knee (chief complaint) Pain in left kneeUnilateral primary osteoarthritis, left knee 3 Shari Sharad er. [address] [facility], [address], [place], [place], [id number] , [place]. tel:[phone] Referring Provider: Jefry Soliz, [address] [facility] [address], [place], [address] . tel:[phone] Office/outpa tient visit,[facility], [facility], [address] [address], [place], [place], [id number], [place] tel:[phone] [email or web address] Hip and Knee (chief complaint) Pain in left hipPain in left kneePain in right kneeBilateral primary osteoarthritis of kneeUnilateral primary osteoarthritis, left hip 9 Shari Sharad er. [address] [facility], [facility] [address], [place], [place], [id number] , [place]. tel:[phone] Referring Provider: Jerry Doyle, [address] [facility] [address], [place], [address]. tel:[phone] Office/outpa tient visit,new, mod [facility], [address], [place], [place], [id number], [phone] [facility] Foot And Ankle Pain (chief complaint) Feet and ankles (chief complaint) Pain in footPain in ankleHypertension Primary osteoarthritis, right ankle and footPrimary osteoarthritis, left ankle and foot 0201 9 Surinder Edwards. [address] [facility], [address], [place], [address], [place]. tel:[phone] Referring Provider: Jerry Doyle, [address] [facility] [address], [place], [address]. tel:[phone] Family History Family Member Type Diagnosis Age At Onset Sister Problem (finding) Osteoarthritis Mother Problem (finding) Hypertension Father Problem (finding) Kidney Disease Mother Problem (finding) Osteoarthritis Sister Problem (finding) Hypertension Father Problem (finding) Hypertension Father Problem (finding) Osteoarthritis Father Problem (finding) Heart Disease Sister Problem (finding) Heart Disease Mother Problem (finding) Heart Disease Immunizations Vaccine Date Status Comments Pneumo (2 yrs or older)(PPV) administered Source: Source Unspecified influenza, injectable, quadrivalent, (3 years or older) administered Source: Source Unspecified Payers Payer name Insurance type Covered alliance party ID Authoriza tikristin(s) [employer] Medicare Advantage [id number] Social History Type Description Quantity Date Captured Comments Alcohol Use Details Unknown Caffeine Use Details Unknown Tobacco Use Status Current non-smoker Smoking Status Never smoker Non-Smoking Tobacco Use Details : No Details Available : No Details Available Sex Male Vital Signs Date / Time: Height Weight BMI Pulse Rate Blood Pressure Temperature Respiratory Rate Body Surface Area Head Circumference Head Circ. Percentile Wt./Larui. Percentile BMI percentile Pulse Ox Inhaled Ox 9:27 AM 76.00 in 111.584 kg (246.00 lbs) 29.9 4 kg/m eter (2) Chief Complaint And Reason For Visit From encounter dated '01/22/2023 10:00'. left knee (chief complaint). Description: Carmen presents to the office today at the request of his physical therapist. He had a cortisone injection into the left knee on 12/09/2022, and indicates that it worked very well until he started physical therapy. Denies injury, trauma, or fall. Denies fever, chills, generalized feelings of illness or malaise. With the start of physical therapy he developed pain at the medial joint line that is intermittent. It is severe, sharp and stabbing with physical therapy. He is utilizing pain patches, dimh-yyh-nlsiafy medications and NSAIDs as well as bracing forpain control. Since the start of physical therapy he has developed pain in the right knee, and has a diagnosis of osteoarthritis of the right knee. It is more well managed and less significant than the left. It is mild to moderate and intermittent, well covered with his current intervention regimen. He is ambulating with the use of a walker at today's office visit. Reason For Referral Reason For Referral No Information Plan Of Treatment Date Type Action Status Referral Ordered: X-ray exam knee, 4+ views LT knee ordered Referral Ordered: X-ray Exam Hip Unilat With Pelvis When Perf 2-3 View LT hip ordered Referral Ordered: X-ray exam knee, 3 views RT knee ordered Referral Ordered: X-ray exam foot, minimum 3 views Bilateral foot ordered Referral Ordered: X-ray exam ankle, minimum 3 views Bilateral ankle ordered Appointment MarialuisaCarmen hernandez BOOKED Future Order: Lab Order CBC W/Di ff (CBC w/Diff), Ordered on: Ordered Future Order: Lab Order C Reacti ve Protein (CRP), Ordered on: Ordered Future Order: Lab Order Sed Rate (Sed Rate), Ordered on: Ordered History Of Present Illness Encounter Date Complaint History Of Prese nt Illness left knee Carmen presents to the office today at the request of his physical therapist. He had a cortisone injection into the left knee on 12/09/2022, and indicates that it worked very well until he started physical therapy. Denies injury, trauma, or fall. Denies fever, chills, generalized feelings of illness or malaise. With the start of physical therapy he developed pain at the medial joint line that is intermittent. It is severe, sharp and stabbing with physical therapy. He is utilizing pain patches, ohyk-vky-zkfnzzl medications and NSAIDs as well as bracing for pain control. Since the start of physical therapy he has developed pain in the right knee, and has a diagnosis of osteoarthritis of the right knee. It is more well managed and less significant than the left. It is mild to moderate and intermittent, well covered with his current intervention regimen. He is ambulating with the use of a walker at today's office visit. [place] Knee Carmen presents to the office today for evaluation of his chronic left knee pain. He was seen in our office by Dr. Ori Mccarthy in November 2018, but has had no treatment since that date. He is having some difficulty with balance which is causing an increase in his pain. He is experiencing limping, numbness and stiffness. Endorses reduced range of motion after tibial plateau and fibular fracturing with fixation. His pain is rated at a 7 out of 10 with an aching constant nature and a stabbing intermittent nature. It is worsened with weightbearing and ambulation. He is utilizing jpyu-qhd-hjrrggn pain medications or NSAIDs, exercise, heat and massage for pain control with no efficacy. He has ambulating with the use of a walker at today's office visit. Hip and Knee Foot And Ankle Pain Feet and ankles Functional Status Date Functional Assessmen t No Information Instructions Date Instruction Additional Infor gab Continuation of cons ervative treatments, risks and benefits of repeat cortisone, frequency of injection schedule, pathophysiology of both post injury related and use related arthritic changes were reviewed. Carmen demonstrates appropriate understanding of the diagnosis and plan of care and wishes to proceed with cortisone injection into the bilateral knees. He will continue pain control measures as outlined. He will follow up with our office as needed. Dictation completed with Text[employer] software, grammatical variances and spelling errors may inadvertently occur. Related to Bilateral primary osteoarthritis of knee Pathophysiology of t he disease process was discussed. Conservative treatment options were discussed including cortisone injections, visco supplementation injections, physical therapy, the use of ice or heat, the use of vhqk-kse-lpvlfcp nonsteroidal anti-inflammatory type medications and uhye-oje-zxkwgpj pain medications, and the use of bracing. Risks and benefits of cortisone injection were discussed. The frequency of injection schedule was discussed. At this time the patient would like to proceed with cortisone injections into the left knee, and obtain a referral to physical therapy. Carmen demonstrates appropriate understanding of the diagnosis and plan of care at this time and we will see them back as needed. Dictation completed with Text[employer] software, grammatical variances and spelling errors may inadvertently occur. Related to Unilateral primary osteoarthritis, left knee Assessments Type Assessment Date assessment Pain in left knee assessment Pain in right knee assessment Bilateral primary osteoarthritis of knee Patient Care Teams Name Effective Dates (start - stop) Status Members No Information
--- OUTSIDE RECORDS SUMMARY | 2024-08-28 07:20 | XMS_ITS ---
Author Organization [facility] Address [address] [place] [address] Care Team Providers Care Marine Engineering Consultant Name Role Phone Jonas Mullins MD Primary Care Provider [phone] DemetrsofiaKindra OD Unavailable [phone] Active Problems Problem Noted Date Diagnosed Date Superficial punctate keratitis of both eyes 07/09 Assessment & Plan (07/31/2024 5:21 PM SUPERVISOR GLUING): Mild inferior PEE. Reports FBS onset since he began puzzling a few weeks ago. Suspect this is surface related. Has mild conj chalasis, MGD, and blepharitis. Could consider treating these if symptoms persist. Recommends PFATs PRN OU particularly prior to visually demanding tasks. Conjunctival lesion 07/31/2024 Assessment & Plan (07/31/2024 5:20 PM SUPERVISOR [employer]UING): Images from the original note were not included. Has an elevated lesion of the inferior palpebral conj measuring 2.5mmx2.5mm. 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 Picture taken below for reference. Recommend repeat anterior exam in 2-3 months to monitor for stability. Nephrolithiasis 06/03/2023 Meibomian gland dysfunction (MGD) of upper and lower lids of both eyes 06/01/2023 Assessment & Plan (06/01/2023 10:46 AM [employer]PER[employer]OR [employer]UING): Significant MGD and blepharitis. Large chalazia of [...] 05/15/2020 Assessment & Plan (06/01/2023 10:46 AM SUPERVISOR [employer]UING): Doing well, follow. Assessment & Plan (10/28/2021 11:36 AM CDT): Clear and centered both eyes (OU); great outcome Assessment & Plan (05/15/2020 1:25 PM SUPERVISOR [employer]UING): Centered and stable lenses, clear capsules Monitor Chalazion of left lower eyelid 05/15/2020 Assessment & Plan (07/31/2024 5:14 PM SUPERVISOR GLUING): Has a stable chalazion on HUNTER Assessment & Plan (07/09/2023 12:35 PM SUPERVISOR GLUING): Chalazia LLL with significant improvement with warm compresses and maxitrol. IOP 05/19. - Continue warm compresses PRN - Will give additional tube of maxitrol as needed. If requiring regular use then patient will call for appointment F/U 1 year with [facility] Assessment & Plan (06/01/2023 10:48 AM SUPERVISOR GLUING): Patient also mentions some type of internal twitching/fasciculation of LLL. Patient noticed during inferior indirect exam, but there was no movement of the globe during this episode. 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 Assessment & Plan (05/15/2020 1:27 PM SUPERVISOR GLUING): Internal hordeolum left eye (OS), warm compresses Myalgia 01/02/2020 Neck pain 01/02/2020 Age-related nuclear cataract of right eye s/p KPE/PCIOL OD 08/08/19 07/13/2019 Overview (07/13/2019): Added automatically from request for surgery [id number] Assessment & Plan (08/16/2019 9:07 AM CDT): [...] finish Assessment & Plan (08/09/2019 7:27 AM SUPERVISOR GLUING): POD1 status post (s/p) KPE/ PCIOL OD Doing well Reviewed activity instructions and warning signs Start PF and ofloxacin QID RTC 1 week s/p CE/PCIOL OS 05/26/19 05/27/2019 Assessment & Plan (07/03/2019 10:28 AM SUPERVISOR GLUING): 1 mth POV s/p CE/PCIOL OS 05/26/19 [...] finish Assessment & Plan (06/01/2019 8:10 PM SUPERVISOR GLUING): Post-op week sp 1 KPE/IOL OS Healing well Stop ofloxacin Taper PF 1gtt/week RTC 3 weeks for post-op month 1 visit Assessment & Plan (05/27/2019 8:13 AM SUPERVISOR GLUING): POD1 CE/PCIOL OS - Pt is doing [...] AM CDT): No evidence of hypertensive retinopathy. Current Treatment and Therapy Plans No current plan information found. Past Treatment and Therapy Plans No past plan information found. Lifetime Dose Tracking * Chemical Lifetime Dose Automatic Entry Manual Entr y Fluoro Time 1.543 minutes 1.543 minutes 0 minutes Air kerma at the reference point (Ka,r) 38.21 mGy 3 8.21 mGy 0 mGy Resolved Problems Problem Noted Date Diagnosed Date Resolved Date Age-related nuclear cataract of left eye 04/12/2019 10/28/2021 Overview (04/12/2019): Added automatically from request for surgery [id number] Age-related nuclear cataract of both eyes 11/23/2017 [...]
--- OUTSIDE RECORDS SUMMARY | 2024-08-28 07:20 | XMS_ITS | Encounter Summary ---
Author Organization [facility] Address [address] [facility] [place] [address] Care Team Providers Care Chemical Weigher Name Role Phone Jonas Mullins MD Primary Care Provider [phone] Reason for Visit * Reason Onset Date Comments Appointment 06/30/2018 Encounter Details Date Type Department Care Team (Late st Contact Info) Description 06/30/2018 Telephone [facility] [address] [place], [place] [id number] Ricarda Queen MD [address] [facility] [address] DEPT OF DERMAT[facility]Y [place], [place] [id number] Appointment Social History Tobacco Use Types Packs/Day Years Used Date Smoking Tobacco: Never Assessed Sex and Gender Information Value Date Recorded Sex Assigned at Not on file Gender Identity Not on file Sexual Orientation Not on file documented as of this encounter Miscellaneous Notes * Telephone Encounter - Gisselle Macario - 06/30/2018 9:34 AM CST Mr. Elam called this morning stated that he has left messages for someone to call him back from [facility]. Please call pt back at [phone]. Thanks Gisselle Ramsey EY BREEDER documented in this encounter Plan of Treatment Not on file documented as of this encounter Visit Diagnoses Not on filedocumented in this encounter Care Teams Chemical Weigher Relationship Specialty Start Date End Date Jonas Mullins MD [address] [place] [id number] PCP - General 06/27/18 documented as of this encounter
--- OUTSIDE RECORDS SUMMARY | 2024-08-28 07:20 | XMS_ITS | Referral Summary ---
Author Organization [facility] [address] Address [address] [place] [address] Care Team Providers Care Lpn Instructor Name Role Phone Jonas Mullins MD Primary Care Provider [phone] Kindra Nascimento OD Unavailable [phone] Encounters Date Type Department Care Team Description 07/31/2024 2:45 PM COP BREAKER Office Visit [facility] Ophthalmology [address] [place] [address] [place] [phone] Sita Subramanian MD Chalazion of left lower eyelid (Primary Dx); Superficial punctate keratitis of both eyes; Conjunctival lesion from Last 3 Months Allergies Active Allergy Reactions Criticality Noted Date [...] (NIZORAL) 2 % cream 0 Active vitamin N69-gculz acid 0.5-1 mg tablet Take by mouth Active alendronate (FOSAMAX) 70 mg tablet TAKE 1 TABLET BY MOUTH WEEKLY 3 Active triamcinolone (KENALOG) 0.1 % cream 3 Active rivaroxaban (XARELTO) 10 mg tablet Take 1 tablet (10 mg total) by mouth daily Reported on 05/14/2023 Takes prn if having pAFib bouts Active glucos sul 0DJq-yab-nzxej-C -Mn (Glucosamine Chondroitin) 550-30-1 mg capsule Take [...] within 12 hours or as directed by MD. 30 patch 11 4 Active Active Problems Problem Noted Date Diagnosed Date Superficial punctate keratitis of both eyes 07/09 Assessment & Plan (07/31/2024 5:21 PM COP BREAKER): Mild inferior PEE. Reports FBS onset since he began puzzling a few weeks ago. Suspect this is surface related. Has mild conj chalasis, MGD, and blepharitis. Could consider treating these if symptoms persist. Recommends PFATs PRN OU particularly prior to visually demanding tasks. Conjunctival lesion 07/31/2024 Assessment & Plan (07/31/2024 5:20 PM COP BREAKER): Images from the original note were not included. Has an elevated lesion of the inferior palpebral conj measuring 2.5mmx2.5mm. 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 Picture taken below for reference. Recommend repeat anterior exam in 2-3 months to monitor for stability. Nephrolithiasis 06/03/2023 Meibomian gland dysfunction (MGD) of upper and lower lids of both eyes 06/01/2023 Assessment & Plan (06/01/2023 10:46 AM COP BREAKER): Significant MGD and blepharitis. Large chalazia of [...] 05/15/2020 Assessment & Plan (06/01/2023 10:46 AM COP BREAKER): Doing well, follow. Assessment & Plan (10/28/2021 11:36 AM CDT): Clear and centered both eyes (OU); great outcome Assessment & Plan (05/15/2020 1:25 PM COP BREAKER): Centered and stable lenses, clear capsules Monitor Chalazion of left lower eyelid 05/15/2020 Assessment & Plan (07/31/2024 5:14 PM COP BREAKER): Has a stable chalazion on HUNTER Assessment & Plan (07/09/2023 12:35 PM COP BREAKER): Chalazia LLL with significant improvement with warm compresses and maxitrol. IOP 05/19. - Continue warm compresses PRN - Will give additional tube of maxitrol as needed. If requiring regular use then patient will call for appointment F/U 1 year with DFE Assessment & Plan (06/01/2023 10:48 AM COP BREAKER): Patient also mentions some type of internal twitching/fasciculation of LLL. Patient noticed during inferior indirect exam, but there was no movement of the globe during this episode. 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 Assessment & Plan (05/15/2020 1:27 PM COP BREAKER): Internal hordeolum left eye (OS), warm compresses Myalgia 01/02/2020 Neck pain 01/02/2020 Age-related nuclear cataract of right eye s/p KPE/PCIOL OD 08/08/19 07/13/2019 Overview (07/13/2019): Added automatically from request for surgery [id number] Assessment & Plan (08/16/2019 9:07 AM CDT): [...] finish Assessment & Plan (08/09/2019 7:27 AM COP BREAKER): POD1 status post (s/p) KPE/ PCIOL OD Doing well Reviewed activity instructions and warning signs Start PF and ofloxacin QID RTC 1 week s/p CE/PCIOL OS 05/26/19 05/27/2019 Assessment & Plan (07/03/2019 10:28 AM COP BREAKER): 1 mth POV s/p CE/PCIOL OS 05/26/19 [...] finish Assessment & Plan (06/01/2019 8:10 PM COP BREAKER): Post-op week sp 1 KPE/IOL OS Healing well Stop ofloxacin Taper PF 1gtt/week RTC 3 weeks for post-op month 1 visit Assessment & Plan (05/27/2019 8:13 AM COP BREAKER): POD1 CE/PCIOL OS - Pt is doing [...] (04/12/2019): Added automatically from request for surgery [id number] Age-related nuclear cataract of both eyes 11/23/2017 [...] left eye (OS) and with reading glasses Loius Feng MD Assessment & Plan (11/23/2017 11:40 AM CDT): OS > OD. Not yet visually significant to warrant cataract surgery. No significant worsening with BAT. - Follow-up in 6 months for repeat evaluation - Recommended artificial tears and anti-glare coating on glasses prescription Immunizations Immunization Administration Dates Next Due ZOSTER Recombinant 10/06/2018 Social History Tobacco Use Types Packs/Day Years [...] on file Legal Sex Male 12:58 AM COP BREAKER Gender Identity Not on file Sexual Orientation Not on file Last Filed Vital Signs Vital Sign Reading Time Taken Comments Blood Pressure 123/66 04/24/2024 2:43 PM COP BREAKER Pulse 77 04/24/2024 2:43 PM COP BREAKER Temperature 36.5 C (97.7 F) 04/24/2024 2:43 PM COP BREAKER Respiratory Rate 10 04/24/2024 2:43 PM COP BREAKER Oxygen Saturation 97% 04/24/2024 2:43 PM COP BREAKER Inhaled Oxygen Concentration - - Weight 108.9 kg (240 lb) 04/24/2024 2:43 PM COP BREAKER Height 195.6 cm (6' 5 ) 04/24/2024 2:43 PM COP BREAKER Body Mass Index 28.46 04/24/2024 2:43 PM COP BREAKER Plan of Treatment Not on file Goals Goal Patient Goal Type Associated Problems Recent Progress Patient-Stated? Author CCM Chronic Pain Care Plan Chronic Care Management On track(2023 2:49 PM COP BREAKER) Marianela Molina, RN Note: Problem: Chronic Pain Goals: 1. Minimize further functional decline 2. Maximize quality of life 3. Control pain Strategies: - Activity/exercise program recommendation - Conservative stepwise pain medicine strategy with multi-disciplinary approach - Recommend healthy lifestyle strategies and compensatory methods as needed Medical Devices Implanted Type Area Career Technical Education Instructor Device Identifier Shelf Expiration Date Model / Serial / Lot [employer] [id number].175 Acrysof Iq Natural Stableforce Acrysert 6mm 13mm 1 Piece Foldable - [id number] - [id number] Implanted:Qty: 1 on 05/26/2019 by Rebekah Feng MD at [facility] Lens Left: Eye [employer] [id number] 09/05/2023 SN60WF.17 5 / [id number] / [employer] [id number].180 Acrysof Iq Natural Stableforce Acrysert 6mm 13mm 1 Piece Foldable - [id number] - [id number] Implanted:Qty: 1 on 08/08/2019 by Rebekah Feng MD at [facility] Right: Eye [employer] [id number] 12/05/2023 SN60WF.18 0 / [id number] / Procedures Procedure Name Priority Date/Time Associated Diagnosis Comments COLONOSCOPY REPORT 01/21/2016 from Last 3 Months or Most Recently Relevant to Health Maintenance Results * COLONOSCOPY REPORT (01/21/2016) Anatomical Region Laterality Modality Other Narrative 01/21/2016 Ordered by an unspecified provider. Historical Provider GI PROCEDURE ORDERABLES F inal Result from Last 3 Months or Most Recently Relevant to Health Maintenance Insurance [employer] ADV[employer]AGE MEDICARE [facility] [employer] [place] [address] [place] [address] [employer] [place] [address] [place] [address] [employer] [place] [address] [place] [address] Care Teams Lpn Instructor Relationship Specialty Start Date End Date Jonas Mullins MD [address] [place] [address] PCP - General 02/17/11 Kindra Nascimento OD [address] INTERNAL MEDICINE [place], [place] [id number] Referring Physician Optometry 03/02/22
--- OUTSIDE RECORDS SUMMARY | 2024-08-28 07:20 | XMS_ITS | Encounter Summary ---
Author Organization [facility] Healthcare Address [address] [place] [address] Care Team Providers Care Milk Handler Name Role Phone Jonas Mullins MD Primary Care Provider [phone] Kindra Nascimento OD Unavailable [phone] Encounter Details Date Type Department Care Team (Late st Contact Info) Description 05/12/2022 Telephone [facility] [place] [facility] [address] [place] [address] Keith Naik MD [address] [place] [address] Social History Tobacco Use Types Packs/Day Years Used Date Smoking Tobacco: Never Smokeless Tobacco: Never Alcohol Use Standard Drinks/Week Comments Not Currently 0 (1 standard drink = 0.6 oz pur e alcohol) denies AUDIT-C Answer Date Recorded Q1: How often do you have a drink containing alc ohol? Never 09/24/2021 Average Number of Drinks Not on file 022 Frequency of Binge Drinking Not on file 09/06 Sex and Gender Information Value Date Recorded Sex Assigned at Not on file Legal Sex Male 12:58 AM REBRANDER Gender Identity Not on file Sexual Orientation Not on file documented as of this encounter Plan of Treatment Not on file documented as of this encounter Goals Goal Patient Goal Type Associated Problems Recent Progress Patient-Stated? Author CCM Chronic Pain Care Plan Chronic Care Management On track(2023 2:49 PM REBRANDER) Marianela Molina, RN Note: Problem: Chronic Pain Goals: 1. Minimize further functional decline 2. Maximize quality of life 3. Control pain Strategies: - Activity/exercise program recommendation - Conservative stepwise pain medicine strategy with multi-disciplinary approach - Recommend healthy lifestyle strategies and compensatory methods as needed documented as of this encounter Visit Diagnoses Not on filedocumented in this encounter Care Teams Milk Handler Relationship Specialty Start Date End Date Jonas Mullins MD [address] [place] [address] PCP - General 02/17/11 Kindra Nascimento OD [address] [place] [address] Referring Physician Optometry 03/02/22 documented as of this encounter
--- OUTSIDE RECORDS SUMMARY | 2024-08-28 07:20 | XMS_ITS | Encounter Summary ---
Author Organization [facility] Address [address] [facility] [place] [address] Care Team Providers Care Debt Recovery Officer Name Role Phone Jonas Mullins MD Primary Care Provider [phone] Encounter Details Date Type Department Care Team (Late st Contact Info) Description 12/31/2022 Lab Requisition [facility] - DermPath Lab [address] [place] [id number] Jerry Cohn MD [address] [place] [address] Social History Tobacco Use Types Packs/Day Years Used Date Smoking Tobacco: Never Assessed Sex and Gender Information Value Date Recorded Sex Assigned at Not on file Gender Identity Not on file Sexual Orientation Not on file documented as of this encounter Plan of Treatment Not on file documented as of this encounter Procedures Procedure Name Priority Date/Time Associated Diagnosis Comments DERMATOPATHOLOGY Routine 12/31/2022 12:0 0 AM CDT documented in this encounter Results * DERMATOPATHOLOGY (12/31/2022 12:00 AM CDT) Case Report Dermatopathology Report Case: [id number] Authorizing Provider: Jerry Cohn MD Collected: 12/31/2022 12:00 AM Ordering Location: [facility] DermPath Lab Received: 12/31/2022 05:07 PM Pathologist: Bebe Baumann MD Specimens: A) - Skin, right chin B) - Skin, left chin 4:55 PM CDT DERMATOPATHOLOGY LABORATORY Final Diagnosis Specimen A. 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 The specimen consists of a shave biopsy measuring 3x2x1 mm. Jar 0. Specimen B: Received is one formalin filled container labeled with the patient's name and designated left chin. The specimen consists of a shave biopsy measuring 4x3x1 and 2x5x1 mm. Jar 0. 3 4:55 PM [facility] DERMAT[facility]ATH[facility] Microscopic Description Specimen A. SKIN, right chin: Sections show non-specific changes, including solar elastosis and vascular ectasia. This lesion is present at the margin of the specimen. Additional deeper sections were obtained and reviewed. COMMENT: Given the superficial nature of the biopsy specimen, a deeper dermal process cannot be excluded. Specimen B. SKIN, left chin: Sections show non-specific changes, including solar elastosis and vascular ectasia. Demodex mites are seen within follicular ostia. This lesion is present at the margin of the specimen. Additional deeper sections were obtained and reviewed. COMMENT: Given the superficial nature of the biopsy specimen, a deeper dermal process cannot be excluded. 3 4:55 PM [facility] DERMAT[facility] Disclaimer An external and internal positive and negative controls are appropriate for the histochemical, immunohistochemical and immunofluorescence stain(s) in this case (if any), except where stated explicitly. The performance characteristics of the stain(s) cited in this report were developed and its performance characteristic determined by the Dermatopathology Laboratory at [facility], directed by Dr. Aleksandr Wolf. These tests need not be, and therefore are not, approved by the [place] Food and Drug Administration. The tests are used for clinical purposes. Billing Codes Specimen Charges Stain Charges 99763 28131 1 1 3 4:55 PM CDT DERMATOPATHOLOGY LABORATORY Embedded Images 3 4:55 PM [facility] DERMAT[facility] Pathology/Cytology TISSUE SPECIMEN FROM SKIN / Unknown 12/31/2022 12/31/2022 5:07 PM CDT Miscellaneous samples (specimen) TISSUE SPECIMEN FROM SKIN / Unknown 12/31/2022 12/31/2022 5:07 PM CDT Jerry Cohn MD LAB - PATHOLOGY/CYTO LOGY ORDERABLES DERMATOPATHOLOGY LABORATORY [facility] - Department of Dermatology [facility] Specialized Medicine [address] [place] [address], [address] [phone] documented in this encounter Visit Diagnoses Not on filedocumented in this encounter Care Teams Debt Recovery Officer Relationship Specialty [place] [address] [place] [phone] PCP - General 06/27/18 documented as of this encounter
--- OUTSIDE RECORDS SUMMARY | 2024-08-28 07:20 | XMS_ITS | Encounter Summary ---
Author Organization [facility] Healthcare Address [address] [place] [address] Care Team Providers Care Cracking Machine Operator Name Role Phone Jonas Mullins MD Primary Care Provider [phone] Kindra Nascimento OD Unavailable [phone] Reason for Visit * Reason Onset Date Comments MED REFILLS 02/11/2021 Encounter Details Date Type Department Care Team ([facility] st Contact Info) Description 02/11/2021 Telephone [facility] at [facility] [place] [facility] [address] [facility] [address] [place] [address] Keith Naik MD [address] [place] [address] MED REFILLS Social History Tobacco Use Types Packs/Day Years Used Date Smoking Tobacco: Never Smokeless Tobacco: Never Alcohol Use Standard Drinks/Week Comments Not Currently 0 (1 standard drink = 0.6 oz pur e alcohol) denies Sex and Gender Information Value Date Recorded Sex Assigned at Not on file Legal Sex Male 12:58 AM PYROMETER TEMPERATURE REGULATOR Gender Identity Not on file Sexual Orientation Not on file documented as of this encounter Ordered Prescriptions Prescription Sig Dispense Quantity Refills Last Filled Start Date End Date gabapentin (NEURONTIN) 600 mg tabletIndications: Neuropathic Pain Take 1 tablet (600 mg total) by mouth 3 (three) times a day 270 tablet 3 02/11/2021 01/12/2022 documented in this encounter Plan of Treatment Not on file documented as of this encounter Goals Goal Patient Goal Type Associated Problems Recent Progress Patient-Stated? Author CCM Chronic Pain Care Plan Chronic Care Management On track(2023 2:49 PM PYROMETER TEMPERATURE REGULATOR) Marianela Molina, RN Note: Problem: Chronic Pain Goals: 1. Minimize further functional decline 2. Maximize quality of life 3. Control pain Strategies: - Activity/exercise program recommendation - Conservative stepwise pain medicine strategy with multi-disciplinary approach - Recommend healthy lifestyle strategies and compensatory methods as needed documented as of this encounter Visit Diagnoses Not on filedocumented in this encounter Discontinued Medications Medication Sig Discontinue Reason Start Date End Da te gabapentin (NEURONTIN) 600 mg tabletIndications:Neurop athic Pain Take 1 tablet (600 mg total) by mouth 3 (three) times a day Reorder 07/29/2020 02/11/2021 documented as of this encounter Care Teams Cracking Machine Operator Relationship Specialty Start Date End Date Jonas Mullins MD [address] [place] [address] PCP - General 02/17/11 Kindra Nascimento OD [address] [place] [address] Referring Physician Optometry 03/02/22 documented as of this encounter
--- OUTSIDE RECORDS SUMMARY | 2024-08-28 07:20 | XMS_ITS | Encounter Summary ---
Author Organization [facility] Address [address] [place] [place] [address] Care Team Providers Care Plant Sciences Professor Name Role Phone Jonas Mullins MD Primary Care Provider [phone] Encounter Details Date Type Department Care Team (Late st Contact Info) Description 02/27/2021 Lab Requisition [facility] DermPath Lab [address] [place] [address] Jerry Cohn MD [address] [place] [address] Social History Tobacco Use Types [...] Priority Date/Time Associated Diagnosis Comments DERMATOPATHOLOGY Routine 02/25/2021 12:0 0 AM CDT documented in this encounter Results * DERMATOPATHOLOGY (02/25/2021 12:00 AM CDT) Case Report Dermatopathology Report Case: [id number] Authorizing Provider: Jerry Cohn MD Collected: 02/25/2021 12:00 AM Ordering Location: [facility] DermPath Lab Received: 02/27/2021 10:10 AM Pathologist: Martínez Wolf MD Specimen: Skin, crown of scalp 1:45 PM CDT DERMATOPATHOLOGY LABORATORY Final Diagnosis Specimen A. SKIN, crown of scalp: BASAL CELL CARCINOMA, INFILTRATIVE PATTERN (C44.41) 1:45 PM CDT DERMATOPATHOLOGY LABORATORY Clinical History R/O neoplasia. 1:45 PM CDT DERMATOPATHOLOGY LABORATORY Gross Description Specimen A: Received is one formalin filled container labeled with the patient's name and designated crown of scalp. The specimen consists of a shave biopsy measuring [id number]. Jar 0. 1 1:45 PM CDT DERMATOPATHOLOGY LABORATORY Microscopic Description Specimen A. SKIN, crown of scalp: Within the dermis there are nodular aggregates of basaloid cells associated with fibromyxoid stroma and epithelial-stromal clefts. At the advancing margin of the neoplasm, there are smaller angulated nests that infiltrate the dermis. 1:45 PM CDT DERMATOPATHOLOGY LABORATORY Disclaimer An external and internal positive and negative controls are appropriate for the histochemical, immunohistochemical and immunofluorescence stain(s) in this case (if any), except where stated explicitly. The performance characteristics of the stain(s) cited in this report were developed and its performance characteristic determined by the Dermatopathology Laboratory at [facility], directed by Dr. Aleksandr Wolf. These tests need not be, and therefore are not, approved by the [place] Food and Drug Administration. The tests are used for clinical purposes. Billing Codes Specimen Charges Stain Charges 17737 1 1 1:45 PM CDT DERMATOPATHOLOGY LABORATORY Embedded Images 1:45 PM CDT DERMATOPATHOLOGY LABORATORY Pathology/Cytolog y TISSUE SPECIMEN FROM SKIN / Unknown 02/25/2021 02/27/2021 10:10 AM CDT Jerry Cohn MD LAB - PATHOLOGY/CYTO LOGY ORDERABLES DERMATOPATHOLOGY LABORATORY [facility] - Department of Dermatology [address], [address] [phone] documented in this encounter Visit Diagnoses Not on filedocumented in this encounter Care Teams Plant Sciences Professor Relationship Specialty Start Date End Date Jonas Mullins MD [address] [place] [phone] PCP - General 06/27/18 documented as of this encounter
--- OUTSIDE RECORDS SUMMARY | 2024-08-28 07:20 | XMS_ITS | Clinical Summary ---
Author Organization [facility] Address [address] [place] [address] Care Team Providers Care All Source Collection Manager Name Role Phone Unavailable Primary Care Provider Unavailabl e Social History Tobacco Use Types Packs/Day Years Used Date Smoking Tobacco: Never Assessed Sex and Gender Information Value Date Recorded Sex Assigned at Not on file Legal Sex Male 9:16 PM CDT Gender Identity Not on file Sexual Orientation Not on file Last Filed Vital Signs Vital Sign Reading Time Taken Comments Blood Pressure 124/68 12/20/2013 1:46 PM CDT Pulse - - Temperature - - Respiratory Rate - - Oxygen Saturation - - Inhaled Oxygen Concentration - - Weight 110.2 kg (243 lb) 12/20/2013 1:34 PM CDT Height 195.6 cm (6' 5 ) 12/20/2013 1:34 PM CDT Body Mass Index 28.82 12/20/2013 1:34 PM CDT Plan of Treatment Health Maintenance Due Date Last Done Comments Hepatitis C 1963 DTaP, Tdap and Td Vaccines ( 1 - Tdap) 1966 Zoster Vaccines (1 of 2) 1997 Pneumococcal Vaccine: 65+ Ye ars (1 of 1 - PCV) 2012 RSV Immunization or 60+ Years (1 - 1-dose 75+ series) 2022 COVID-19 Vaccine ( - 2023-2 5 season) 2024 Influenza Adult (#1) 2024 Meningococcal B Vaccine Aged Out No l onger eligible based on patient's age to complete this topic Meningococcal Vaccine Aged Out No emmanuelle chon eligible based on patient's age to complete this topic RSV Immunizations Under 20 Months Aged Out No longer eligible based on patient's age to complete this topic
[2024-08-28 07:47] LABS: Basophils Absolute Auto 0.1 K/mm3 (0.0-0.1); Eosinophils Absolute Auto 0.1 K/mm3 (0-0.3); Eosinophils Percent Auto 2.4 % (0-4.4); Hematocrit 44.2 % (42.0-52.0); Hemoglobin 14.5 g/dL (14.0-18.0); Immature Granulocyte Absolute 0.03 K/mm3 (0.00-0.031); Immature Granulocyte Percent A 0.5 % (0-0.5); Lymphocytes Absolute Auto 1.43 K/mm3 (0.9-3.2); Lymphocytes Percent Auto 24.7 % (18.3-44.2); Mean Corpuscular HGB Conc 32.8 g/dl (32-36); Mean Corpuscular Hemoglobin 30.9 pg (26-34); Mean Platelet Volume 9.6 fl (7.4-10.4); Monocytes Absolute Auto 0.7 K/mm3 (0.1-0.6); Monocytes Percent Auto 11.8 % (2.6-8.5); Neutrophils Absolute Auto 3.4 K/mm3 (1.3-6.7); Neutrophils Percent Auto 59.6 % (45.5-73.1); Platelet Count Result 171 k/mm3 (150-375); Red Cell Distribution Width 12.6 % (11.5-14.5); White Blood Count 5.8 K/mm3 (4.5-10.0)
[2024-08-28 07:57] LABS: Alanine Aminotransferase 21 U/L (6-50); Albumin Level 4.2 g/dL (3.5-5.1); Alkaline Phosphatase 62 U/L (38-126); Anion Gap 7 mmol/L (4-12); Aspartate Amino Transferase 25 U/L (17-59); Bilirubin,Total 0.8 mg/dL (0.2-1.3); Blood Urea Nitrogen 20 mg/dL (9-20); Calcium 9.1 mg/dL (8.4-10.2); Carbon Dioxide 25 mmol/L (22-30); Chloride 105 mmol/L (98-107); Cholesterol 129 mg/dL (0-200); Estimated Glomerular Filt Rate > 60; Glucose 98 mg/dL (65-110); HDL Direct 45 mg/dL; Potassium 4.3 mmol/L (3.4-5.0); Sodium 137 mmol/L (137-145); Triglycerides 83 mg/dL (<150)
[2024-08-28 08:08] LABS: LDL Cholesterol Direct 59 mg/dL
[2024-08-28 08:27] LABS: Prostate Specific Antigen 0.5 ng/mL (< OR = 4.0)
== END 2024-08-28 07:16 | disposition home or self-care (01) ==
PROVIDERS: PCP Internal Medicine; Visit Provider Internal Medicine
DX: I10 Essential (primary) hypertension (principal); Z00.00 Encounter for general adult medical examination without abnormal findings; Z79.899 Other long term (current) drug therapy; Z12.5 Encounter for screening for malignant neoplasm of prostate
CPT/HCPCS: 36415; 80053; 80061; 83036; 84153; 85025; G0103

== ENCOUNTER 2025-01-08 07:20 | Outpatient (CLI) | payer MEDICARE, SELFPAY ==
--- OUTSIDE RECORDS SUMMARY | 2025-01-08 07:25 | XMS_ITS | Clinical Summary ---
Author Organization [facility] Address [address] [facility] [place] [address] Care Team Providers Care Garnetter Name Role Phone Jonsa Mullins MD Primary Care Provider [phone] Source Comments [facility],non-owned Affiliates and Associated Physician Practices is amultiple site organization consisting of ambulatory clinics and hospital sitesin [place], [place], [place] and [place]. This disclosure is being madepursuant to the Care Everywhere program and may not contain all information available regarding this patient. Last updated 18.[facility] Allergies Active Allergy Reactions Criticality Noted Date Comments Adhesive Sensitivity Rash Medium 04/18/2007 Latex Unknown,Rash Medium 10/16/2010 Medications * Be aware that medications may not be up to date on this document. Alwaysverify current medications with the patient. LORazepam (Ativan) 1 MG tablet Take 1 (one) tablet by mouth 3 times daily Active amLODIPine (Norvasc) 2.5 MG tablet Take 1 (one) tablet by mouth 2 times daily 10/23/2023 Active zolpidem (Ambien) 10 MG tablet Take 1 (one) tablet by mouth Active losartan (Cozaar) 50 MG tablet Take 1 (one) tablet by mouth 2 times daily Active celecoxib (CeleBREX) 200 MG capsule Take 1 (one) capsule by mouth once daily 30 capsule 2 10/17/2024 Active Encounters Date Type Department Care Team Description 12/04/2024 9:45 AM CDT Office Visit [facility] [address] [place] [address], [address] [phone] Godwin Dahl, WASTEWATER PLANT OPERATOR-INFO SPECIALIST Chronic pain of right knee (Primary Dx) 12/04/2024 Travel 11/27/2024 11:45 AM CDT Office Visit [facility] [address] [place] [address], [address] [phone] Godwin Dahl, WASTEWATER PLANT OPERATOR-INFO SPECIALIST Primary osteoarthritis of both knees (Primary Dx) 11/27/2024 Travel 10/24/2024 Telephone [facility] [address] [place] [address], [address] [phone] Trevor Moncada MD Question 10/17/2024 1:10 PM CDT Office Visit [facility] [address] [place] [address], [address] [phone] Trevor Moncada MD Primary osteoarthritis of both knees (Primary Dx) from Last 3 Months Social History Tobacco Use Types Packs/Day Years Used Date Smoking Tobacco: Never Smokeless Tobacco: Never Tobacco Cessation:Counseling Given: Not Answered Sex and Gender Information Value Date Recorded Sex Assigned at Not on file 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 Gender Identity Not on file Sexual Orientation Not on file Last Filed Vital Signs Vital Sign Reading Time Taken Comments Blood Pressure - - Pulse - - Temperature - - Respiratory Rate - - Oxygen Saturation - - Inhaled Oxygen Concentration - - Weight 111.1 kg (245 lb) 10/17/2024 1:31 PM CDT Height 193 cm (6' 4) 10/17/2024 1:31 PM CDT Body Mass Index 29.82 10/17/2024 1:31 PM CDT Plan of Treatment Upcoming Encounters Date Type Department Care Team (Late st Contact Info) Description 02/26/2025 9:00 AM CDT Office Visit [facility] [address] [place] [address], [address] [phone] Godwin Dahl, WASTEWATER PLANT OPERATOR-INFO SPECIALIST [address] [address] 03/05/2025 9:00 AM CDT Office Visit [facility] [address] [place] [address], [address] [phone] Godwin Dahl, WASTEWATER PLANT OPERATOR-INFO SPECIALIST [address] [address] Health Maintenance Due Date Last Done Comments HEPATITIS C SCREENING 02/27/1965 DTAP/TDAP/TD VACCINES (1 - Tdap) 1966 PNEUMOCOCCAL VACCINE 50+ (1 of 1 - PCV) 1997 ZOSTER VACCINE (1 of 2) 1997 Respiratory Syncytial Virus (RSV) Vaccine Pt: or over 60 yrs (1 - 1-dose 75+ series) 2022 COVID-19 VACCINE (1 - 2023-2 5 season) 2024 DEPRESSION SCREENING 06/07/2024 MEDICARE AWV CALENDAR YEAR 2024 INFLUENZA VACCINE (#1) 2025 HEPATITIS B VACCINE Aged Out No longe [...] on patient's age to complete this topic Insurance MEDICARE [employer] [facility] MANAGED MEDICARE [place] [id number] Care Teams Garnetter Relationship Specialty Start Date End Date Jonas Mullins MD [address] [place] [address] PCP - General 06/27/18
--- OUTSIDE RECORDS SUMMARY | 2025-01-08 07:25 | XMS_ITS | Continuity of Care Document ---
Author Organization [facility] Address [address] [place] [address] Phone Care Team Providers Care Channeler Runner Name Role Phone Shari JOHNSON MD, Ori [...] on Encounter Office/outpa tient visit,est, high [facility], [address], [id number], [place] tel:[phone] [facility] bilat knees (chief complaint) Pain in left kneePain in right kneeBilateral primary osteoarthritis of knee 5 Shari Rehman. [address], [id number], [place]. tel:[phone] Referring Provider: Jerry Doyle, [address] [place] [address], [place], [address]. tel:[phone] [facility], [address], [id number], [place] tel:[phone] [address] [facility] No Information 5 Administrati ve Provider. [address] [address], [place], [place], [id number], [place]. tel:[phone] Office/outpa tient visit,est, [facility], [address], [id number], [place] tel:[phone] [facility] left knee (chief complaint) Pain in left kneePain in right kneeBilateral primary osteoarthritis of knee 3 Shari Rehman. [address], [id number], [place]. tel:[phone] Referring Provider: Jefry Soliz, [address] [facility] Suite [facility], [place], [address] . tel:[phone] Office/outpa tient visit,[facility], [facility], [address] [address], [place], [place], [id number], [place] tel:[phone] [facility] Left Knee (chief complaint) Pain in left kneeUnilateral primary osteoarthritis , left knee Dec-0 5 3 [address]hman. [address] [facility], [address] [address], [place], [place], [id number], [place]. tel:[phone] Referring Provider: Jefrydavid Soliz, [address] [address], [place], [address] . tel:[phone] Office/outpa tient visit,[facility], [facility], [address] [address], [place], [place], [id number], [place] tel:[phone] [facility] Hip and Knee (chief complaint) Pain in left hipPain in left kneePain in right kneeBilateral primary osteoarthritis of kneeUnilateral primary osteoarthritis , left hip Armen- 9 Shari Rehman. [address] [address], [place], [place], [id number], [place]. tel:[phone] Referring Provider: Jerry Doyle, [address] [address], [place], [address]. tel:[phone] Office/outpa tient visit,[facility], [address] [address], [place], [place], [id number], [place] tel:[phone] [facility] Foot And Ankle Pain (chief complaint) Feet and ankles (chief complaint) Pain in footPain in ankleHypertens ionPrimary osteoarthritis , right ankle and footPrimary osteoarthritis , left ankle and foot Armen- 0-201 9 Surinder Edwards. [address] [facility], [address] [place] [address], [place], [address], [place]. tel:[phone] Referring Provider: Jerry Doyle, [address] [facility] [address], [place], [address]. tel:[phone] Family History Family Member Type Diagnosis Age [...] Unspecified Payers Payer name Insurance type Covered democrat ID Authoriza tion(s) [employer] Medicare Advantage [id number] Social History Type Description Quantity Date Captured [...] ray exam knee, 4+ views LT knee (75896), Body Site: knee, Sent on: Sent Future [...] physical therapy. He is utilizing pain patches, ljsl-wvx-uxoipbl medications and NSAIDs as well as bracing [...] with weightbearing and ambulation. He is utilizing rvxm-szr-jwysutm pain medications or NSAIDs, exercise, heat and massage for pain control with no efficacy. He has ambulating with the use of a walker at today's office visit. Hip and Knee Foot And Ankle Pain Feet and ankles Functional Status Date Functional Assessmen t No Information Instructions Date Instruction Additional Infor gba After discussing the risks benefits and alternatives [...] patient [facility] possibly cemented prosthesisPossibly patellar resurfacingAspirin [...] our office as needed. Dictation completed with TheraVid software, grammatical variances and spelling errors may inadvertently occur. Related to Bilateral primary osteoarthritis of knee Pathophysiology of t he disease process was discussed. Conservative treatment options were discussed including cortisone injections, visco supplementation injections, physical therapy, the use of ice or heat, the use of tcug-vma-lseqtoc nonsteroidal anti-inflammatory type medications and xlej-rbe-dpkgzdr pain medications, and the use of bracing. [...] them back as needed. Dictation completed with TheraVid software, grammatical variances and spelling errors may [...] would need to be done at [facility] that he would not be able to discharge in the outpatient setting. He could even require [facility]. We discussed increased risk of infection [...]
--- OUTSIDE RECORDS SUMMARY | 2025-01-08 07:25 | XMS_ITS | Clinical Summary ---
Author Organization [facility] 2 Address [address] [facility] [place] [address] Care Team Providers Care Blasting Gang Miner Name Role Phone Jonas Mullins MD Primary Care Provider [phone] DemKindra renteria OD Unavailable [phone] Allergies Active Allergy Reactions Criticality Noted Date Comments Scott Inhibitors Cough Low 04/18/2007 Adhesive Tape-Silicones Rash Medium 04/18/2007 Amoxicillin Rash Medium 05/14/2023 Cephalexin Hives,Rash Medium 04/18/2007 Latex Rash Medium 10/16/2010 Penicillins Rash Medium 05/14/2023 Medications finasteride (PROSCAR) 5 mg tabletIndications: benign prostatic hyperplasia with lower urinary tract sx Take 1 tablet (5 mg total) by mouth nightly 08/11/19 13 Active flecainide (TAMBOCOR) 100 mg tabletIndications: A fib. Take 1 tablet (100 mg total) by mouth 2 (two) times a day 04/12/20 07 Active LORazepam (ATIVAN) 1 mg tabletIndications: anxiety Take 1 tablet (1 mg total) by mouth every 8 (eight) hours 0 08/28/19 18 Active zolpidem (AMBIEN) 10 mg tabletIndications: Sleep-Onset Insomnia Take 1 tablet (10 mg total) by mouth nightly 1 09/22/19 18 Active fish oil-dha-epa 1,200-144-216 mg capsuleIndications :supplement Take 2 capsules by mouth 2 (two) times a day Active aspirin 81 mg enteric coated tabletIndications: prevention of thrombosis Take 1 tablet (81 mg total) by mouth nightly Active bacitracin-neomyci n-polymyxin B (NEOSPORIN) ointment Apply topically 2 (two) times a day 03/13/20 20 Active losartan (COZAAR) 50 mg tablet Take 1 tablet (50 mg total) by mouth 2 (two) times a day 01/30/20 20 Active folic acid (FOLVITE) 1 mg tablet Take 1 tablet (1,000 mcg total) by mouth daily 08/11/19 21 Active ketoconazole (NIZORAL) 2 % cream 05/29/20 20 Active vitamin B96-umpzs acid 0.5-1 mg tablet Take by mouth Active alendronate (FOSAMAX) 70 mg tablet TAKE 1 TABLET BY MOUTH WEEKLY 11/27/19 23 Active triamcinolone (KENALOG) 0.1 % cream 01/01/20 23 Active rivaroxaban (XARELTO) 10 mg tablet Take 1 tablet (10 mg total) by mouth daily Reported on 05/14/2023 Takes prn if having pAFib bouts Active glucos sul 8KCi-qmb-rytbk-C-M n (Glucosamine Chondroitin) 550-30-1 mg capsule Take 1 capsule by mouth daily Active tadalafiL (Cialis) 5 mg tablet Take by mouth once daily as needed 02/26/20 16 Active neomycin-polymyxin B-dexAMETHasone (MAXITROL) 3.5 mg/g-10,000 unit/g-0.1 % ointment Apply to both eyelids twice a day. 3.5 g 1 07/09/19 24 Active amLODIPine (NORVASC) 2.5 mg tablet Take 1 tablet (2.5 mg total) by mouth 2 (two) times a day 10/23/19 24 Active flecainide (TAMBOCOR) 50 mg tablet TAKE 1 TABLET BY MOUTH AT LUNCH 01/31/20 24 Active lidocaine (LIDODERM) 5 %Indications:Posth erpetic Neuralgia Apply 1 patch topically daily Remove & discard patch within 12 hours or as directed by . 30 patch 11 05/23/20 24 Active prednisoLONE acetate (PRED FORTE) 1 % ophthalmic suspension Administer 1 drop into both eyes 2 (two) times a day 5 mL 1 06/27/20 25 Active olopatadine (PATADAY) 0.2 % ophthalmic solutionIndication s:Allergic Conjunctivitis Administer 1 drop into both eyes daily 2.5 mL 11 12/02/19 25 Active omega-3 fatty acids 1,000 mg capsule 1,000 mg 09/12/19 22 Active garlic 100 mg tablet Take by oral route. Active chondroit-collagen -hyaluron-AA 80-400-40 mg capsule mg, 0 08/13/19 19 Active pmlmycig-vcwfza-jq q7-E7-S-fer 750-625-1,000 mg-mg-unit tablet mg, tablet(s), 0 08/13/19 19 Active metoprolol succinate (KAPSPARGO) 25 mg capsule,sprinkle,E R 24hr extended release capsule 25 mg 01/31/20 24 Active cholecalciferol (VITAMIN D-3) 2000 unit capsule Take by oral route. Active celecoxib (CeleBREX) 200 mg capsule Take 1 capsule (200 mg total) by mouth daily 10/18/19 25 Active cyanocobalamin (Vitamin B-12) 1,000 mcg tablet Take by oral route. Active nitroglycerin (Nitrostat) 0.4 mg SL tablet 1 tablet (0.4 mg total) 08/13/19 23 Active metoprolol XL (TOPROL-XL) 50 mg 24 hr tabletIndications: Atrial Arrhythmia Take 0.5 tablets (25 mg total) by mouth every morning 025 Discontin ued(Dupli bessy order) Active Problems Problem Noted Date Diagnosed Date Superficial punctate keratitis of both eyes 07/09 Assessment & Plan (07/31/2024 5:21 PM BUYING INTERN): Mild inferior PEE. Reports FBS onset since he began puzzling a few weeks ago. Suspect this is surface related. Has mild conj chalasis, MGD, and blepharitis. Could consider treating these if symptoms persist. Recommends PFATs PRN OU particularly prior to visually demanding tasks. Conjunctival lesion 07/31/2024 Assessment & Plan (12/04/2024 12:50 PM CDT): Evaluated in 07/2024 and noted to have right inferior palpebral conjunctival lesion. Following up to trend anterior exam. Patient is unbothered by lesion and does not have any discomfort. Lesion visualized again with similar size. Exam also notable for multiple chalazia in the inferior palpebral conjunctiva of the LLL and changes consistent with chronic atopic disease. Most consistent with stye Try pred forte (PF) BID PRN and pataday daily OU Assessment & Plan (10/08/2024 11:35 PM CDT): Images from the original note were not included. Evaluated in 07/2024 and noted to have right inferior palpebral conjunctival lesion. Following up to trend anterior exam. Patient is unbothered by lesion and does not have any discomfort. Lesion visualized again with similar size. Exam also notable for multiple chalazia in the inferior palpebral conjunctiva of the LLL and changes consistent with chronic atopic disease. Differential for RLL lesion includes chalazion, though cannot exclude squamous cell carcinoma or sebaceous gland carcinoma based on appearance alone. Would appreciate evaluation by oculoplastics colleagues for consideration of biopsy. Can use warm compresses for MGD, though patient is currently comfortable. Updated photos taken today for chart: OD today: OD 07/2024: OS today: Assessment & Plan (07/31/2024 5:20 PM BUYING INTERN): Images from the original note were not included. Has an elevated lesion of the inferior palpebral conj measuring 2.5mmx2.5mm. 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 Picture taken below for reference. Recommend repeat anterior exam in 2-3 months to monitor for stability. Nephrolithiasis 06/03/2023 Meibomian gland dysfunction (MGD) of upper and lower lids of both eyes 06/01/2023 Assessment & Plan (06/01/2023 10:46 AM BUYING INTERN): Significant MGD and blepharitis. Large chalazia of [...] 05/15/2020 Assessment & Plan (06/01/2023 10:46 AM BUYING INTERN): Doing well, follow. Assessment & Plan (10/28/2021 11:36 AM CDT): Clear and centered both eyes (OU); great outcome Assessment & Plan (05/15/2020 1:25 PM BUYING INTERN): Centered and stable lenses, clear capsules Monitor Chalazion of left lower eyelid 05/15/2020 Assessment & Plan (07/31/2024 5:14 PM BUYING INTERN): Has a stable chalazion on HUNTER Assessment & Plan (07/09/2023 12:35 PM BUYING INTERN): Chalazia LLL with significant improvement with warm compresses and maxitrol. IOP 12/13. - Continue warm compresses PRN - Will give additional tube of maxitrol as needed. If requiring regular use then patient will call for appointment F/U 1 year with D[facility] Assessment & Plan (06/01/2023 10:48 AM BUYING INTERN): Patient also mentions some type of internal twitching/fasciculation of LLL. Patient noticed during inferior indirect exam, but there was no movement of the globe during this episode. 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 Assessment & Plan (05/15/2020 1:27 PM BUYING INTERN): Internal hordeolum left eye (OS), warm compresses Myalgia 01/02/2020 Neck pain 01/02/2020 Age-related nuclear cataract of right eye s/p KPE/PCIOL OD 08/08/19 07/13/2019 Overview (07/13/2019): Added automatically from request for surgery [id number] Assessment & Plan (08/16/2019 9:07 AM CDT): [...] finish Assessment & Plan (08/09/2019 7:27 AM BUYING INTERN): POD1 status post (s/p) KPE/ PCIOL OD Doing well Reviewed activity instructions and warning signs Start PF and ofloxacin QID RTC 1 week s/p CE/PCIOL OS 05/26/19 05/27/2019 Assessment & Plan (07/03/2019 10:28 AM BUYING INTERN): 1 mth POV s/p CE/PCIOL OS 05/26/19 [...] finish Assessment & Plan (06/01/2019 8:10 PM BUYING INTERN): Post-op week sp 1 KPE/IOL OS Healing well Stop ofloxacin Taper PF 1gtt/week RTC 3 weeks for post-op month 1 visit Assessment & Plan (05/27/2019 8:13 AM BUYING INTERN): POD1 CE/PCIOL OS - Pt is doing [...] (04/12/2019): Added automatically from request for surgery [id number] Age-related nuclear cataract of both eyes 11/23/2017 [...] Encounters Date Type Department Care Team Description 12/25/2024 7:45 AM CDT - 12/25/2024 11:59 PM CDT Hospital Encounter [facility] at the [address] [place] [address] Keith Naik MD Sacroiliitis (Primary Dx); Other myositis, unspecified site; Myalgia; Chronic right shoulder pain Discharge Disposition: Discharge to home or self care 12/25/2024 Orders Only [facility] at the [facility] [address] [place] [address] Keith Naik MD Chronic right shoulder pain (Primary Dx) 12/14/2024 2:15 PM CDT Office Visit [facility] [address] [place] [address] 5th [place] [address] [place] [address] Tristen Orta MD Nephrolithiasis (Primary Dx); Primary hypertension; Other chronic pain 12/13/2024 Telephone [facility] at the [address] [place] [address] Keith Naik MD PMC Preprocedure 12/12/2024 8:10 AM CDT - 12/12/2024 11:59 PM CDT Hospital Encounter [facility] [address] [place] [address] Nephrolithiasis Discharge Disposition: Discharge to home or self care 12/01/2024 8:00 AM CDT Office Visit [facility] [address] [place] [address] [address] [place] [address] Conjunctival lesion (Primary Dx) 11/14/2024 Orders Only [facility] [place] [facility] the [facility] [address] [facility] [address] [place] [address] Keith Naik MD Sacroiliitis (Primary Dx) 11/13/2024 Telephone [facility] [place] at the [facility] [address] [facility] [address] [place] [address] Keith Naik MD call note; scheduling appt from Last 3 Months Immunizations Immunization Administration [...] have a drink containing alc ohol? Never 12/25/2024 Average Number of Drinks Not on file 025 Frequency of Binge Drinking Not on file 12/06 Sex and Gender Information Value Date Recorded Sex Assigned at Not on file Legal Sex Male 12:58 AM BUYING INTERN Gender Identity Not on file Sexual Orientation Not on file Obstetrics History Last Filed Vital Signs Vital Sign Reading Time Taken Comments Blood Pressure 139/83 12/25/2024 9:04 AM CDT Pulse 55 12/25/2024 9:04 AM CDT Temperature 36.4 C (97.5 F) 12/25/2024 7:51 AM CDT Respiratory Rate 14 12/25/2024 9:04 AM CDT Oxygen Saturation 96% 12/25/2024 9:04 AM CDT Inhaled Oxygen Concentration - - Weight 112.5 kg (248 lb) 12/25/2024 7:51 AM CDT Height 195.6 cm (6' 5) 12/25/2024 7:51 AM CDT Body Mass Index 29.41 12/25/2024 7:51 AM CDT Plan of Treatment Health Maintenance Due Date Last Done Comments Depression Screening 1945 Fall Risk Assessment 1945 Hepatitis C Screening 1945 Hepatitis B Screening 1965 Well Visit 65+ 2012 Influenza Vaccine (#1) 2025 8, 04/06/2017, 02/17/2016, Additional history exists DTaP/Tdap/Td [...] Chronic Care Management On track(2023 2:49 PM BUYING INTERN) Marianela Molina, RN Note: Problem: Chronic Pain Goals: 1. Minimize further functional decline 2. Maximize quality of life 3. Control pain Strategies: - Activity/exercise program recommendation - Conservative stepwise pain medicine strategy with multi-disciplinary approach - Recommend healthy lifestyle strategies and compensatory methods as needed Medical Devices Implanted Type Area Pharmacy Account Director Device Identifier Shelf Expiration Date Model / Serial / Lot [employer] Sn60wf.175 Acrysof Iq Natural Stableforce Acrysert 6mm 13mm 1 Piece Foldable - [id number] - [id number] Implanted:Qty: 1 on 05/26/2019 by Rebekah Feng MD at [facility] Lens Left: Eye [employer] [id number] 09/05/2023 SN60WF.17 5 / [id number] / [employer] Sn60wf.180 Acrysof Iq Natural Stableforce Acrysert 6mm 13mm 1 Piece Foldable - [id number] - [id number] Implanted:Qty: 1 on 08/08/2019 by Rebekah Feng MD at [facility] Right: Eye [employer] [id number] 12/05/2023 SN60WF.18 0 / [id number] / Procedures Procedure Name Priority Date/Time Associated Diagnosis Comments PAIN MGMT IMAGING SI JOINT LEFT Schedule Routine, Read Routine (OP Routine) 12/25/2024 9:02 AM CDT Sacroiliitis US KIDNEY COMPLETE Schedule Routine, Read Routine (OP Routine) 12/12/2024 8:46 AM CDT Nephrolithiasis COLONOSCOPY REPORT 01/21/2016 from Last 3 Months or Most Recently Relevant to Health Maintenance Results * Imaging SI Joint Injection Left (18633) (12/25/2024 9:02 AM CDT) Narrative [facility] - 12/25/2024 9:02 AM CDT The images from this study are not interpreted by Radiology. Please refer to the physician's procedure / OR operative note. us Keith Naik MD IMG PAIN MGMT PROCEDURES Final Result [facility] * US Kidney Complete (12/12/2024 8:46 AM CDT) Anatomical Region Laterality Modality Kidney N/A Ultrasound 12/12/2024 9:32 AM CDT Impressions 12/12/2024 10:10 AM CDT Normal kidneys. No hydronephrosis. Previously noted right lower pole kidney stone is not visualized on the current exam. Dictated by: Ori Colmenares M.D. The radiology attending physician has personally reviewed this study, and had reviewed and/or edited this written report and agrees with it. Electronically signed by: Alex May M.D. Narrative 12/12/2024 10:10 AM CDT EXAMINATION: COMPLETE RENAL SONOGRAM HISTORY: 79-year-old male with renal stones. Interval follow-up. COMPARISON: 12/02/2023, 06/30/2023 FINDINGS: Kidneys: The echogenicity of both kidneys is normal. The kidneys are normal in size. The right kidney measures 11.8 cm in length, and the left, 11.4 cm in length. There is no hydronephrosis in either kidney. There are no renal calculi visualized. The previously noted 6 mm hyperechoic shadowing stone in the lower pole of the right kidney is no longer present. Multiple simple cysts in the bilateral kidneys are unchanged from prior. Bladder: The urinary bladder is normal Procedure Note Alex May MD - 12/12/2024 EXAMINATION: COMPLETE RENAL SONOGRAM HISTORY: 79-year-old male with renal stones. Interval follow-up. COMPARISON: 12/02/2023, 06/30/2023 FINDINGS: Kidneys: The echogenicity of both kidneys is normal. The kidneys are normal in size. The right kidney measures 11.8 cm in length, and the left, 11.4 cm in length. There is no hydronephrosis in either kidney. There are no renal calculi visualized. The previously noted 6 mm hyperechoic shadowing stone in the lower pole of the right kidney is no longer present. Multiple simple cysts in the bilateral kidneys are unchanged from prior. Bladder: The urinary bladder is normal IMPRESSION: Normal kidneys. No hydronephrosis. Previously noted right lower pole kidney stone is not visualized on the current exam. Dictated by: Ori Colmenares M.D. The radiology attending physician has personally reviewed this study, and had reviewed and/or edited this written report and agrees with it. Electronically signed by: Alex May M.D. Tristen Orta MD IM US PROCEDURES Final Result * COLONOSCOPY REPORT (01/21/2016) Anatomical Region Laterality Modality Other Narrative 01/21/2016 Ordered by an unspecified provider. Historical Provider GI PROCEDURE ORDERABLES F inal Result from Last 3 Months or Most Recently Relevant to Health Maintenance Insurance [facility] MEDICARE ADVANTAGE MEDICARE [facility] SIGNATURE COMMERCIAL [place] [address] [address] [facility] MEDICARE ADVANTAGE MEDICARE ADVANTAGE MEDICARE ADVANTAGE Care Teams Blasting Gang Miner Relationship Specialty Start Date End Date Jonas Mullins MD [address] INTERNAL MEDICINE [place], [place] [id number] PCP - General 02/17/11 Kindra Nascimento OD [address] INTERNAL MEDICINE [place], [place] [id number] Referring Physician Optometry 03/02/22
--- OUTSIDE RECORDS SUMMARY | 2025-01-08 07:25 | XMS_ITS | Encounter Summary ---
Author Organization [facility] Healthcare Address [address] [place] [address] Care Team Providers Care Sprinkler Repair Technician Name Role Phone Jonas Mullins MD Primary Care Provider [phone] Kindra Nascimento OD Unavailable [phone] Reason for Visit * Reason Onset Date Comments Prior Auth 04/19/2019 Gabapentin 600mg NPR Encounter Details Date Type Department Care Team (Late st Contact Info) Description 04/19/2019 Telephone [facility] [place] [facility] [address] [facility] Advanced Medicine [address] [place] [address] Keith Naik MD [address] [place] [address] Prior Auth (Gabapentin 600mg NPR) Social History Tobacco Use Types Packs/Day Years Used Date Smoking Tobacco: Never Smokeless Tobacco: Never Alcohol Use Standard Drinks/Week Comments Yes 0 (1 standard drink = 0.6 oz pur e alcohol) Sex and Gender Information Value Date Recorded Sex Assigned at Not on file Legal Sex Male 12:58 AM PUBLIC AFFAIRS SPECIALIST Gender Identity Not on file Sexual Orientation Not on file documented as of this encounter Plan of Treatment Not on file documented as of this encounter Goals Goal Patient Goal Type Associated Problems Recent Progress Patient-Stated? Author CCM Chronic Pain Care Plan Chronic Care Management On track(2023 2:49 PM PUBLIC AFFAIRS SPECIALIST) No Marianela Pineda RN Note: Problem: Chronic Pain Goals: 1. [...] documented as of this encounter Care Teams Sprinkler Repair Technician Relationship Specialty Start Date End Date Jonas Mullins MD [address] [place] [address] PCP - General 02/17/11 Kindra Nascimento OD [address] [place] [address] Referring Physician Optometry 03/02/22 documented as of this encounter
--- OUTSIDE RECORDS SUMMARY | 2025-01-08 07:25 | XMS_ITS | Clinical Summary ---
Author Organization [facility] Address [address] [place] [address] Phone Care Team Providers Care Scientific Artist Name Role Phone Jonas Mullins MD Primary [...] 4:38 PM CDT Height 195.6 cm (6' 5) 03/09/2020 4:38 PM CDT Body Mass Index 29.05 03/09/2020 4:38 PM CDT Plan of Treatment Health Maintenance Due Date Last Done Comments PNEUMOCOCCAL VACCINE 50+ YEARS (1 of 1 - PCV) 03/04/19 97 ZOSTER VACCINE (2 of 2) 12/01/2018 10/06/2018 RSV VACCINE (60+ or ) (1 - 1-dose 75+ series) 2022 INFLUENZA VACCINE (#1) 2025 03/10/2020 DTAP/TDAP/TD VACCINES (2 - Td or Tdap) 03/09/2030 Medical Devices Implanted Type Area Director Of Early Childhood Education Device Identifier Shelf Expiration Date Model / Serial / Lot Rogelio Rogelio Leg Wire Wire Hip Insurance MEDICARE PART A AND B RX ENVISION[employer] Commercial RX [employer] (INTERNAL) [facility] Internal Plans Advance Directives For more information, please contact: [phone] * Full Code (Latest Code Status on File) Date Activated Date Inactivated Comments 03/10/2020 12:35 AM 03/13/2020 3:42 PM Care Teams Scientific Artist Relationship Specialty Start Date End Date Jonas Mullins MD [address] [place] [id number] PCP - General Internal Medicine 03/09/20
--- OUTSIDE RECORDS SUMMARY | 2025-01-08 07:25 | XMS_ITS | Encounter Summary ---
Author Organization [facility] Healthcare Address [address] [place] [address] Care Team Providers Care Curve Saw Operator Name Role Phone Jonas Mullins MD Primary Care Provider [phone] Kindra Nascimento OD Unavailable [phone] Reason for Visit * Reason Onset Date Comments MED REFILLS 02/11/2021 Encounter Details Date Type Department Care Team ([facility] st Contact Info) Description 02/11/2021 Telephone [facility] [place] [facility] [address] [facility] [address] [place], [place] [id number] Keith Naik MD [address] [place] [address] MED REFILLS Social History Tobacco Use Types Packs/Day Years Used Date Smoking Tobacco: Never Smokeless Tobacco: Never Alcohol Use Standard Drinks/Week Comments Not Currently 0 (1 standard drink = 0.6 oz pur e alcohol) denies Sex and Gender Information Value Date Recorded Sex Assigned at Not on file Legal Sex Male 12:58 AM SCHOOL SPEECH THERAPIST Gender Identity Not on file Sexual Orientation [...] Chronic Care Management On track(2023 2:49 PM SCHOOL SPEECH THERAPIST) Marianela Molina, RN Note: Problem: Chronic Pain [...] documented as of this encounter Care Teams Curve Saw Operator Relationship Specialty Start Date End Date Jonas Mullins MD [address] [place] [address] PCP - General 02/17/11 Kindra Nascimento OD [address] [place] [address] Referring Physician Optometry 03/02/22 documented as of this encounter
--- OUTSIDE RECORDS SUMMARY | 2025-01-08 07:25 | XMS_ITS | Encounter Summary ---
Author Organization [facility] Healthcare Address [address] [place] [address] Care Team Providers Care Size Worker Name Role Phone Jonas Mullins MD Primary Care Provider Kindra Nascimento OD Unavailable [phone] Encounter Details Date Type Department Care Team (Late st Contact Info) Description 05/12/2022 Telephone [facility] the [place] [facility] [address] [facility] Advanced Medicine [address] [place] [address] Keith Naik MD [address] [place] [address] Social History Tobacco Use Types Packs/Day Years [...] on file Legal Sex Male 12:58 AM RETAIL OPERATIONS MANAGER Gender Identity Not on file Sexual Orientation Not on file documented as of this encounter Plan of Treatment Not on file documented as of this encounter Goals Goal Patient Goal Type Associated Problems Recent Progress Patient-Stated? Author CCM Chronic Pain Care Plan Chronic Care Management On track(11/18/ 2024 2:49 PM RETAIL OPERATIONS MANAGER) Marianela Molina, RN Note: Problem: Chronic Pain Goals: 1. Minimize further functional decline 2. Maximize quality of life 3. Control pain Strategies: - Activity/exercise program recommendation - Conservative stepwise pain medicine strategy with multi-disciplinary approach - Recommend healthy lifestyle strategies and compensatory methods as needed documented as of this encounter Visit Diagnoses Not on filedocumented in this encounter Care Teams Size Worker Relationship Specialty Start Date End Date Jonas Mullins MD [address] [place] [address] PCP - General 02/17/11 Kindra Nascimento OD [address] [place] [address] Referring Physician Optometry 03/02/22 documented as of this encounter
--- OUTSIDE RECORDS SUMMARY | 2025-01-08 07:26 | XMS_ITS ---
Author Organization [facility] 2 Address [address] [facility] [place] [address] Care Team Providers Care Assistant Women'S Soccer Coach Name Role Phone Jonas Mullins MD Primary Care Provider [phone] DemetrKindra black OD Unavailable [phone] Active Problems Problem Noted Date Diagnosed Date Superficial punctate keratitis of both eyes 07/09 Assessment & Plan (07/31/2024 5:21 PM BASE ENGINEER): Mild inferior PEE. Reports FBS onset since [...] today: Assessment & Plan (07/31/2024 5:20 PM BASE ENGINEER): Images from the original note were not included. Has an elevated lesion of the inferior palpebral conj measuring 2.5mmx2.5mm. 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 Picture taken below for reference. Recommend repeat anterior exam in 2-3 months to monitor for stability. Nephrolithiasis 06/03/2023 Meibomian gland dysfunction (MGD) of upper and lower lids of both eyes 06/01/2023 Assessment & Plan (06/01/2023 10:46 AM BASE ENGINEER): Significant MGD and blepharitis. Large chalazia of [...] 05/15/2020 Assessment & Plan (06/01/2023 10:46 AM BASE ENGINEER): Doing well, follow. Assessment & Plan (10/28/2021 11:36 AM CDT): Clear and centered both eyes (OU); great outcome Assessment & Plan (05/15/2020 1:25 PM BASE ENGINEER): Centered and stable lenses, clear capsules Monitor Chalazion of left lower eyelid 05/15/2020 Assessment & Plan (07/31/2024 5:14 PM BASE ENGINEER): Has a stable chalazion on HUNTER Assessment & Plan (07/09/2023 12:35 PM BASE ENGINEER): Chalazia LLL with significant improvement with warm compresses and maxitrol. IOP 05/19. - Continue warm compresses PRN - Will give additional tube of maxitrol as needed. If requiring regular use then patient will call for appointment F/U 1 year with DFE Assessment & Plan (06/01/2023 10:48 AM BASE ENGINEER): Patient also mentions some type of internal twitching/fasciculation of LLL. Patient noticed during inferior indirect exam, but there was no movement of the globe during this episode. 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 Assessment & Plan (05/15/2020 1:27 PM BASE ENGINEER): Internal hordeolum left eye (OS), warm compresses Myalgia 01/02/2020 Neck pain 01/02/2020 Age-related nuclear cataract of right eye s/p KPE/PCIOL OD 08/08/19 07/13/2019 Overview (07/13/2019): Added automatically from request for surgery [id number] Assessment & Plan (08/16/2019 9:07 AM CDT): [...] finish Assessment & Plan (08/09/2019 7:27 AM BASE ENGINEER): POD1 status post (s/p) KPE/ PCIOL OD Doing well Reviewed activity instructions and warning signs Start PF and ofloxacin QID RTC 1 week s/p CE/PCIOL OS 05/26/19 05/27/2019 Assessment & Plan (07/03/2019 10:28 AM BASE ENGINEER): 1 mth POV s/p CE/PCIOL OS 05/26/19 [...] finish Assessment & Plan (06/01/2019 8:10 PM BASE ENGINEER): Post-op week sp 1 KPE/IOL OS Healing well Stop ofloxacin Taper PF 1gtt/week RTC 3 weeks for post-op month 1 visit Assessment & Plan (05/27/2019 8:13 AM BASE ENGINEER): POD1 CE/PCIOL OS - Pt is doing [...] Automatic Entry Manual Entr y Fluoro Time 1.643 minutes 1.643 minutes 0 minutes Air kerma at the reference point (Ka,r) 39.97 mGy 3 9.97 mGy 0 mGy Resolved Problems Problem Noted Date Diagnosed Date Resolved Date Age-related nuclear cataract of left eye 04/12/2019 10/28/2021 Overview (04/12/2019): Added automatically from request for surgery [id number] Age-related nuclear cataract of both eyes 11/23/2017 [...]
--- OUTSIDE RECORDS SUMMARY | 2025-01-08 07:26 | XMS_ITS | Referral Summary ---
Author Organization [facility] 2 Address [address] [place] [address] Care Team Providers Care Interpretative Dancer Name Role Phone Jonas Mullins MD Primary Care Provider [phone] Kindra Nascimento OD Unavailable [phone] Encounters Date Type Department Care Team Description 12/25/2024 Orders Only [facility] [place] [facility] Advanced Medicine [address] [place] [address] Keith Naik MD Chronic right shoulder pain (Primary Dx) 12/25/2024 7:45 AM CDT - 12/25/2024 11:59 PM CDT Hospital Encounter [facility] [place] [facility] [address] [facility] Advanced Medicine [address] [place] [address] Keith Naik MD Sacroiliitis (Primary Dx); Other myositis, unspecified site; Myalgia; Chronic right shoulder pain Discharge Disposition: Discharge to home or self care 12/14/2024 2:15 PM CDT Office Visit [facility] Nephrology [facility] 5th [place] [address] [place] [address] Tristen Orta MD Nephrolithiasis (Primary Dx); Primary hypertension; Other chronic pain 12/13/2024 Telephone [facility] [place] [facility] [place] [facility] [address] [place] [address] Keith Naik MD PMC Preprocedure 12/12/2024 8:10 AM CDT - 12/12/2024 11:59 PM CDT Hospital Encounter [facility] ([facility] [address] [place] [address] Nephrolithiasis Discharge Disposition: Discharge to home or self care 12/01/2024 8:00 AM CDT Office Visit [facility] Ophthalmology [address] [place] [address] 1st [place] [address] Conjunctival lesion (Primary Dx) 11/14/2024 Orders Only [facility] [place] [facility] [address] [facility] Medicine [address] [place] [address] Keith Naik MD Sacroiliitis (Primary Dx) 11/13/2024 Telephone [facility] [address] [facility] [address] [place] [address] Keith Naik MD call note; scheduling appt from Last 3 Months Allergies Active Allergy [...] 2 % cream 05/29/20 20 Active vitamin I32-asbsh acid 0.5-1 mg tablet Take by mouth Active alendronate (FOSAMAX) 70 mg tablet TAKE 1 TABLET BY MOUTH WEEKLY 11/27/19 23 Active triamcinolone (KENALOG) 0.1 % cream 01/01/20 23 Active rivaroxaban (XARELTO) 10 mg tablet Take 1 tablet (10 mg total) by mouth daily Reported on 05/14/2023 Takes prn if having pAFib bouts Active glucos sul 6DFv-owj-wsjux-C-M n (Glucosamine Chondroitin) 550-30-1 mg capsule Take [...] (two) times a day 5 mL 1 12/02/19 25 Active olopatadine (PATADAY) 0.2 % ophthalmic solutionIndication s:Allergic Conjunctivitis Administer 1 drop into both eyes daily 2.5 mL 11 12/02/19 25 Active omega-3 fatty acids 1,000 mg capsule 1,000 mg 09/12/19 22 Active garlic 100 mg tablet Take by oral route. Active chondroit-collagen -hyaluron-AA 80-400-40 mg capsule mg, 0 08/13/19 19 Active tyyzzidi-irvynl-eo o1-N7-F-fer 750-625-1,000 mg-mg-unit tablet mg, tablet(s), 0 08/13/19 [...] 07/09 Assessment & Plan (07/31/2024 5:21 PM ENGINE GENERATOR ASSEMBLER): Mild inferior PEE. Reports FBS onset since [...] today: Assessment & Plan (07/31/2024 5:20 PM ENGINE GENERATOR ASSEMBLER): Images from the original note were not included. Has an elevated lesion of the inferior palpebral conj measuring 2.5mmx2.5mm. 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 Picture taken below for reference. Recommend repeat anterior exam in 2-3 months to monitor for stability. Nephrolithiasis 06/03/2023 Meibomian gland dysfunction (MGD) of upper and lower lids of both eyes 06/01/2023 Assessment & Plan (06/01/2023 10:46 AM ENGINE GENERATOR ASSEMBLER): Significant MGD and blepharitis. Large chalazia of [...] 05/15/2020 Assessment & Plan (06/01/2023 10:46 AM ENGINE GENERATOR ASSEMBLER): Doing well, follow. Assessment & Plan (10/28/2021 11:36 AM CDT): Clear and centered both eyes (OU); great outcome Assessment & Plan (05/15/2020 1:25 PM ENGINE GENERATOR ASSEMBLER): Centered and stable lenses, clear capsules Monitor Chalazion of left lower eyelid 05/15/2020 Assessment & Plan (07/31/2024 5:14 PM ENGINE GENERATOR ASSEMBLER): Has a stable chalazion on HUNTER Assessment & Plan (07/09/2023 12:35 PM ENGINE GENERATOR ASSEMBLER): Chalazia LLL with significant improvement with warm compresses and maxitrol. IOP 12/13. - Continue warm compresses PRN - Will give additional tube of maxitrol as needed. If requiring regular use then patient will call for appointment F/U 1 year with DFE Assessment & Plan (06/01/2023 10:48 AM ENGINE GENERATOR ASSEMBLER): Patient also mentions some type of internal twitching/fasciculation of LLL. Patient noticed during inferior indirect exam, but there was no movement of the globe during this episode. 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 Assessment & Plan (05/15/2020 1:27 PM ENGINE GENERATOR ASSEMBLER): Internal hordeolum left eye (OS), warm compresses Myalgia 01/02/2020 Neck pain 01/02/2020 Age-related nuclear cataract of right eye s/p KPE/PCIOL OD 08/08/19 07/13/2019 Overview (07/13/2019): Added automatically from request for surgery [id number] Assessment & Plan (08/16/2019 9:07 AM CDT): [...] finish Assessment & Plan (08/09/2019 7:27 AM ENGINE GENERATOR ASSEMBLER): POD1 status post (s/p) KPE/ PCIOL OD Doing well Reviewed activity instructions and warning signs Start PF and ofloxacin QID RTC 1 week s/p CE/PCIOL OS 05/26/19 05/27/2019 Assessment & Plan (07/03/2019 10:28 AM ENGINE GENERATOR ASSEMBLER): 1 mth POV s/p CE/PCIOL OS 05/26/19 [...] finish Assessment & Plan (06/01/2019 8:10 PM ENGINE GENERATOR ASSEMBLER): Post-op week sp 1 KPE/IOL OS Healing well Stop ofloxacin Taper PF 1gtt/week RTC 3 weeks for post-op month 1 visit Assessment & Plan (05/27/2019 8:13 AM ENGINE GENERATOR ASSEMBLER): POD1 CE/PCIOL OS - Pt is doing [...] (04/12/2019): Added automatically from request for surgery [id number] Age-related nuclear cataract of both eyes 11/23/2017 [...] on file Legal Sex Male 12:58 AM ENGINE GENERATOR ASSEMBLER Gender Identity Not on file Sexual Orientation [...] 12/25/2024 7:51 AM CDT Plan of Treatment Not on file Goals Goal Patient Goal Type Associated Problems Recent Progress Patient-Stated? Author CCM Chronic Pain Care Plan Chronic Care Management On track(2023 2:49 PM ENGINE GENERATOR ASSEMBLER) Marianela Molina, RN Note: Problem: Chronic Pain Goals: 1. Minimize further functional decline 2. Maximize quality of life 3. Control pain Strategies: - Activity/exercise program recommendation - Conservative stepwise pain medicine strategy with multi-disciplinary approach - Recommend healthy lifestyle strategies and compensatory methods as needed Medical Devices Implanted Type Area Fee Clerk Device Identifier Shelf Expiration Date Model / Serial / Lot [employer] Sn60wf.175 Acrysof Iq Natural Stableforce Acrysert 6mm 13mm 1 Piece Foldable - [id number] - [id number] Implanted:Qty: 1 on 05/26/2019 by Rebekah Feng MD at [facility] Advanced Medicine Lens Left: Eye [employer] [id number] 09/05/2023 SN60WF.17 5 / [id number] / [employer] [id number].180 Acrysof Iq Natural Stableforce Acrysert 6mm 13mm 1 Piece Foldable - [id number] - [id number] Implanted:Qty: 1 on 08/08/2019 by Rebekah Fneg MD at [facility] for [facility] Right: Eye [employer] [id number] 12/05/2023 SN60WF.18 0 / [id number] / Procedures Procedure Name Priority Date/Time Associated Diagnosis Comments PAIN MGMT IMAGING SI JOINT LEFT Schedule Routine, Read Routine (OP Routine) 12/25/2024 9:02 AM CDT Sacroiliitis US KIDNEY COMPLETE Schedule Routine, Read Routine (OP Routine) 12/12/2024 8:46 AM CDT Nephrolithiasis COLONOSCOPY REPORT 01/21/2016 from Last 3 Months or Most Recently Relevant to Health Maintenance Results * Imaging SI Joint Injection Left ([id number]) (12/25/2024 9:02 AM CDT) Narrative RAD_PACS_[facility] - 12/25/2024 9:02 AM CDT The images from this study are not interpreted by Radiology. Please refer to the physician's procedure / OR operative note. Keith Naik MD IMG PAIN MGMT PROCEDURES [...] by: Alex May M.D. Tristen Orta MD [facility] US PROCEDURES Final Result * COLONOSCOPY REPORT (01/21/2016) Anatomical Region Laterality Modality Other Narrative 01/21/2016 Ordered by an unspecified provider. Historical Provider GI PROCEDURE ORDERABLES F inal Result from Last 3 Months or Most Recently Relevant to Health Maintenance Insurance [facility] MEDICARE ADVANTAGE MEDICARE [facility] COMMERCIAL GENERIC Member Subscriber Plan / Payer (Ef fective 2019-Present) Name:Carmen Ram E Relation to Subscriber:Self Name:Carmen Ram Payer ID:[id number] Type:COMMERCIAL Address: [address] [facility] MEDICARE ADVANTAGE MEDICARE ADVANTAGE Care Teams Interpretative Dancer Relationship Specialty Start Date End Date Jonas Mullins MD [address] [place] [address] PCP - General 02/17/11 Kindra Nascimento OD [address] [place] [address] Referring Physician Optometry 03/02/22
--- OUTSIDE RECORDS SUMMARY | 2025-01-08 07:26 | XMS_ITS | Encounter Summary ---
Author Organization [facility] Address [address] [place] [address] Care Team Providers Care Process Control Programmer Name Role Phone Jonas Mullins MD Primary Care Provider [phone] Encounter Details Date Type Department Care Team (Late Contact Info) Description 02/27/2021 Lab Requisition [facility] [address] [place] [address] Jerry Cohn MD [address] [place] [address] Social History Tobacco Use Types Packs/Day Years Used Date Smoking Tobacco: Never Assessed Sex and Gender Information Value Date Recorded Sex Assigned at Not on file Legal Sex Male 6:14 AM PAPER CLEANER Gender Identity Not on file Sexual Orientation Not on file documented as of this encounter Plan of Treatment Upcoming Encounters Date Type Department Care Team ([facility] Contact Info) Description 02/26/2025 9:00 AM CDT Office Visit [facility] Orthopedics [address] [place] [phone] Godwin Dahl, AIRFREIGHT OPERATIONS AGENT-HELP DESK MANAGER [address] [place] [phone] 03/05/2025 9:00 AM CDT Office Visit [facility] Orthopedics [address] [place] [phone] Godwin Dahl, AIRFREIGHT OPERATIONS AGENT-HELP DESK MANAGER [address] [place] [phone] documented as of this encounter Procedures Procedure Name Priority Date/Time Associated Diagnosis Comments DERMATOPATHOLOGY Routine 02/25/2021 12:0 0 AM CDT documented in this encounter Results * DERMATOPATHOLOGY (02/25/2021 12:00 AM CDT) Case Report Dermatopathology Report Case: [id number] Authorizing Provider: Jerry Cohn MD Collected: 02/25/2021 12:00 AM Ordering Location: [facility] Lab Received: 02/27/2021 10:10 AM Pathologist: Martínez Wolf MD Specimen: Skin, crown of scalp 1:45 PM CDT DERMATOPATHOLOGY LABORATORY Final Diagnosis Specimen A. SKIN, crown of scalp: BASAL CELL CARCINOMA, INFILTRATIVE PATTERN (C44.41) 1:45 PM CDT DERMATOPATHOLOGY LABORATORY at 1345 CDT Clinical History R/O neoplasia. 1:45 PM CDT DERMATOPATHOLOGY LABORATORY Gross Description Specimen A: Received is one formalin filled container labeled with the patient's name and designated crown of scalp. The specimen consists of a shave biopsy measuring [id number]. Jar 0. 1:45 PM CDT DERMATOPATHOLOGY LABORATORY Microscopic Description [...] characteristic determined by the Dermatopathology Laboratory at [facility], directed by Dr. Aleksandr Wolf. These tests need not be, and therefore are not, approved by the [place] Food and Drug Administration. The tests are used for clinical purposes. Billing Codes Specimen Charges Stain Charges 58494 1 09/24/202 1 1:45 PM CDT DERMATOPATHOLOGY LABORATORY Embedded Images 1 1:45 PM CDT DERMATOPATHOLOGY LABORATORY Pathology/Cytolog y TISSUE SPECIMEN FROM SKIN / Unknown 02/25/2021 02/27/2021 10:10 AM CDT us Jerry Cohn MD LAB - PATHOLOGY/CYTOLOGY ORDERAB LES Final Result DERMATOPATHOLOGY LABORATORY [facility] - Department of Dermatology [facility] Medicine [address] [place] [address], [address] Floor [address] [phone] documented in this encounter Visit Diagnoses Not on filedocumented in this encounter Care Teams Process Control Programmer Relationship Specialty Start Date End Date Jonas Mullins MD [address] [place] [phone] PCP - General 06/27/18 documented as of this encounter
--- OUTSIDE RECORDS SUMMARY | 2025-01-08 07:26 | XMS_ITS | Encounter Summary ---
Author Organization [facility] Address [address] [place] [address] Care Team Providers Care Beater Operator Name Role Phone Jonas Mullins MD Primary Care Provider [phone] Encounter Details Date Type Department Care Team (Late Contact Info) Description 12/31/2022 Lab Requisition [facility] - DermPath Lab [address] [facility] [place] [address] Jerry Cohn MD [address] [place] [address] Social History Tobacco Use Types Packs/Day Years Used Date Smoking Tobacco: Never Assessed Sex and Gender Information Value Date Recorded Sex Assigned at Not on file Legal Sex Male 6:14 AM TEA ROOM MANAGER Gender Identity Not on file Sexual Orientation Not on file documented as of this encounter Plan of Treatment Upcoming Encounters Date Type Department Care Team (Late Contact Info) Description 02/26/2025 9:00 AM CDT Office Visit [facility] Orthopedics [address] [place] [phone] Godwin Dahl, BARN WORKER-ENGRAVER TIRE MOLD [address] [place] [phone] 03/05/2025 9:00 AM CDT Office Visit [facility] Orthopedics [address] [place] [address], [address] [phone] Godwin Dahl, BARN WORKER-ENGRAVER TIRE MOLD [address] [place] [phone] documented as of this encounter Procedures Procedure Name Priority Date/Time Associated Diagnosis Comments DERMATOPATHOLOGY Routine 12/31/2022 12:0 0 AM CDT documented in this encounter Results * DERMATOPATHOLOGY (12/31/2022 12:00 AM CDT) Case Report Dermatopathology Report Case: [id number] Authorizing Provider: Jerry Cohn MD Collected: 12/31/2022 12:00 AM Ordering Location: [facility] Received: 12/31/2022 05:07 PM Pathologist: Bebe Baumann MD Specimens: A) - Skin, right chin B) - Skin, left chin 4:55 PM CDT DERMATOPATHOLOGY LABORATORY Final Diagnosis Specimen A. 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 SKIN, left chin: SOLAR ELASTOSIS AND VASCULAR ECTASIA (L57.8) PRESENT AT MARGIN (see microscopic description) 4:55 PM CDT DERMATOPATHOLOGY LABORATORY at 1655 CDT Clinical History A-B: Check margins 4:55 PM CDT DERMATOPATHOLOGY LABORATORY Gross Description Specimen [...] measuring 4x3x1 and 2x5x1 mm. Jar 0. 4:55 PM CDT DERMATOPATHOLOGY LABORATORY Microscopic Description Specimen [...] process cannot be excluded. 3 4:55 PM CDT DERMATOPATHOLOGY LABORATORY Disclaimer An external and internal positive and negative controls are appropriate for the histochemical, immunohistochemical and immunofluorescence stain(s) in this case (if any), except where stated explicitly. The performance characteristics of the stain(s) cited in this report were developed and its performance characteristic determined by the Dermatopathology Laboratory at [facility], directed by Dr. Aleksandr Wolf. These tests need not be, and therefore are not, approved by the [place] Food and Drug Administration. The tests are used for clinical purposes. Billing Codes Specimen Charges Stain Charges 44285 26095 1 1 3 4:55 PM CDT DERMATOPATHOLOGY LABORATORY Embedded Images 3 4:55 PM CDT DERMATOPATHOLOGY LABORATORY Pathology/Cytology TISSUE SPECIMEN FROM SKIN / Unknown 12/31/2022 12/31/2022 5:07 PM CDT Miscellaneous samples (specimen) TISSUE SPECIMEN FROM SKIN / Unknown 12/31/2022 12/31/2022 5:07 PM CDT Jerry Cohn MD LAB - PATHOLOGY/CYTOLOGY ORDERAB LES Final Result DERMATOPATHOLOGY LABORATORY [facility] Department of Dermatology [facility] [address] [place] [address], [address] [phone] documented in this encounter Visit Diagnoses Not on filedocumented in this encounter Care Teams Beater Operator Relationship Specialty Start Date End Date Jonas Mullins MD [address] [facility] [address] PCP - General 06/27/18 documented as of this encounter
--- OUTSIDE RECORDS SUMMARY | 2025-01-08 07:26 | XMS_ITS | Encounter Summary ---
Author Organization [facility] Address [address] [place] [address] Care Team Providers Care Funeral Home Assistant Name Role Phone Jonas Mullins MD Primary Care Provider [phone] Reason for Visit * Reason Onset Date Comments Appointment 06/30/2018 Encounter Details Date Type Department Care Team (Late Contact Info) Description 06/30/2018 [facility] [address] [place], [place] [phone] Ricarda Queen MD [address] [facility] [address] [place] [address] Appointment Social History Tobacco Use Types Packs/Day Years Used Date Smoking Tobacco: Never Assessed Sex and Gender Information Value Date Recorded Sex Assigned at Not on file Legal Sex Male 6:14 AM 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 Elam called this morning stated that he has left messages for someone to call him back from [facility]. Please call pt back at [phone]. Thanks Gisselle Ramsey NHOUSE ASSISTANT documented in this encounter Plan of Treatment Upcoming Encounters Date Type Department Care Team (Late Contact Info) Description 02/26/2025 9:00 AM CDT Office Visit [facility] Orthopedics [id number] [place] [address], [address] [place] [phone] Godwin Dahl, AIR SEALING TECHNICIAN-SENIOR PROJECT MANAGER ENGINEERING [address] [phone] 03/05/2025 9:00 AM CDT Office Visit [facility] Orthopedics [address] [facility], [address] [phone] Godwin Dahl, AIR SEALING TECHNICIAN-SENIOR PROJECT MANAGER ENGINEERING [address] [phone] documented as of this encounter Visit Diagnoses Not on filedocumented in this encounter Care Teams Funeral Home Assistant Relationship Specialty Start Date End Date Jonas Mullins MD [address] [place] [phone] PCP - General 06/27/18 documented as of this encounter
[2025-01-08 08:05] LABS: Alanine Aminotransferase 20 U/L (6-50); Albumin Level 4.1 g/dL (3.5-5.1); Alkaline Phosphatase 65 U/L (38-126); Anion Gap 5 mmol/L (4-12); Aspartate Amino Transferase 26 U/L (17-59); Bilirubin,Total 1.0 mg/dL (0.2-1.3); Blood Urea Nitrogen 17 mg/dL (9-20); Calcium 9.2 mg/dL (8.4-10.2); Carbon Dioxide 25 mmol/L (22-30); Chloride 106 mmol/L (98-107); Cholesterol 147 mg/dL (0-200); Estimated Glomerular Filt Rate > 60; Glucose 93 mg/dL (65-110); HDL Direct 46 mg/dL; Potassium 4.1 mmol/L (3.4-5.0); Sodium 136 mmol/L (137-145); Total Protein 6.8 g/dL (6.3-8.2); Triglycerides 70 mg/dL (<150)
[2025-01-08 08:06] LABS: Hemoglobin A1C 5.3 % (<5.7)
[2025-01-08 08:41] LABS: Thyroid Stimulating Hormone 2.050 uIU/mL (0.465-4.680)
[2025-01-08 09:31] LABS: Free T4 Free Thyroxine 1.00 ng/dL (0.78-2.19)
[2025-01-09 11:09] LABS: Hematocrit 45.9 % (37.5-51.0)
[2025-01-10 22:07] LABS: Folate, Hemolysate >620.0 ng/mL (Not Estab.); Folate, RBC >1325 ng/mL (>498); Hematocrit 46.8 % (37.5-51.0)
== END 2025-01-08 07:21 | disposition home or self-care (01) ==
PROVIDERS: PCP Internal Medicine; Visit Provider Internal Medicine
DX: I10 Essential (primary) hypertension (principal); Z79.899 Other long term (current) drug therapy; Z13.220 Encounter for screening for lipoid disorders; E55.9 Vitamin D deficiency, unspecified; R53.83 Other fatigue; Z13.29 Encounter for screening for other suspected endocrine disorder; Z13.1 Encounter for screening for diabetes mellitus
CPT/HCPCS: 36415; 80053; 80061; 82306; 82747; 83036; 84439; 84443

== ENCOUNTER 2025-03-07 13:57 | Outpatient (CLI) | payer MEDICARE, SELFPAY ==
--- OUTSIDE RECORDS SUMMARY | 2024-10-02 04:30 | XMS_ITS | Continuity of Care Document ---
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 [address], [id number], [place]. tel:[phone] Referring Provider: Jerry Doyle, [address] [place] [address], [place], [address]. tel:[phone] [facility], [address], [id number], [place] tel:[phone] [facility] No Information 5 Administrati ve Provider. [address] [address], [place], [place], [id number], [place]. tel:[phone] Office/outpa tient visit,est, [facility], [address], [id number], [place] tel:[phone] [facility] left knee (chief complaint) Pain in left kneePain in right kneeBilateral primary osteoarthritis of knee 3 Shari Rehman. [address], [id number], [place]. tel:[phone] Referring Provider: Jefry Soliz, [address] [facility] [address] [facility], [place], [address] . tel:[phone] Office/outpa tient visit,[facility], [facility], [address] [address], [place], [place], [id number], [place] tel:[phone] [facility] Left Knee (chief complaint) Pain in left kneeUnilateral primary osteoarthritis , left knee Dec-0 5 3 Shari Rehman. [address] [facility], [address] [address], [place], [place], [id number], [place]. tel:[phone] Referring Provider: Jefrydavid Soliz, [address] [address], [place], [address] . tel:[phone] Office/outpa tient visit,[facility], [facility], [address] [address], [place], [place], [id number], [place] tel:[phone] [facility] Hip and Knee (chief complaint) Pain in left hipPain in left kneePain in right kneeBilateral primary osteoarthritis of kneeUnilateral primary osteoarthritis , left hip Armen- 9 Shari Rehman. [address] [address], [place], [place], [id number], [place]. tel:[phone] Referring Provider: Jerry Doyle, [address] [address], [place], [address]. tel:[phone] Office/outpa tient visit,[facility], [address] [address], [place], [place], [id number], [place] tel:[phone] [facility] Foot And Ankle Pain (chief complaint) Feet and ankles (chief complaint) Pain in footPain in ankleHypertens ionPrimary osteoarthritis , right ankle and footPrimary osteoarthritis , left ankle and foot Armen- 0-201 9 Surinder Edwards. [address] [facility], [address] [address], [place], [address], [place]. tel:[phone] Referring Provider: Jerry Doyle, [address] [facility] [address], [place], [address]. tel:[phone] Family History Family Member Type Diagnosis Age [...] Unspecified Payers Payer name Insurance type Covered green party ID Authoriza tion(s) [employer] Medicare Advantage CI [id number] Social History Type Description Quantity Date Captured [...] ray exam knee, 4+ views LT knee (34835), Body Site: knee, Sent on: Sent Future [...] physical therapy. He is utilizing pain patches, nvwf-bhk-ifdrwcz medications and NSAIDs as well as bracing [...] with weightbearing and ambulation. He is utilizing vaqw-dcz-pzvbwuq pain medications or NSAIDs, exercise, heat and [...] patient wishes to proceed [facility] possibly cemented prosthesisPossibly patellar resurfacingAspirin for [...] our office as needed. Dictation completed with Arisoko software, grammatical variances and spelling errors may inadvertently occur. Related to Bilateral primary osteoarthritis of knee Pathophysiology of t he disease process was discussed. Conservative treatment options were discussed including cortisone injections, visco supplementation injections, physical therapy, the use of ice or heat, the use of rosa-epi-qxedhde nonsteroidal anti-inflammatory type medications and eaqr-qdv-fjumgdz pain medications, and the use of bracing. [...] them back as needed. Dictation completed with Arisoko software, grammatical variances and spelling errors may [...] would need to be done at [place] [facility] that he would not be able to discharge in the outpatient setting. He could even require penitentiary facility. We discussed increased risk of infection [...]
--- NOTE | ~2025-03-07 | XR_ITS ---
EXAMINATION: XR hip LT min 2V, 03/07/2025 14:10 CDT HISTORY: ANTERIOR LT HIP BURNING PAIN x1 WK; HX OF SURGERY x1991 COMPARISON: No comparisons available. Findings: Postsurgical changes with fixation of the proximal left femur, no acute fracture identified. There are areas of lucency around the proximal left femur, there is a remote corticated fractures of the greater trochanter. Severe degenerative changes. Soft tissues unremarkable. Impression: Sequelae of previous trauma and surgery. Clinically if there is concern for osteomyelitis CT recommended Reviewed, dictated and finalized at location P. Impression: Sequelae of previous trauma and surgery. Clinically if there is concern for ost eomyelitis CT recommended
--- OUTSIDE RECORDS SUMMARY | 2025-03-07 14:04 | XMS_ITS | Encounter Summary ---
Author Organization [facility] Address [address] [place] [address] Care Team Providers Care Education And Training Coordinator Name Role Phone Jonas Mullins MD Primary Care Provider [phone] Kindra Nascimento OD Unavailable [phone] Reason for Visit * Reason Onset Date Comments Prior Auth 04/19/2019 Gabapentin 600mg NPR Encounter Details Date Type Department Care Team (Late st Contact Info) Description 04/19/2019 Telephone [facility] [place] [facility] [address] [facility] [address] [place] [address] Keith Naik MD [address] [place] [address] Prior Auth (Gabapentin 600mg NPR) Social History Tobacco Use Types Packs/Day Years Used Date Smoking Tobacco: Never Smokeless Tobacco: Never Alcohol Use Standard Drinks/Week Comments Yes 0 (1 standard drink = 0.6 oz pur e alcohol) Sex and Gender Information Value Date Recorded Sex Assigned at Not on file Legal Sex Male 12:58 AM GROUP BILLING COORDINATOR Gender Identity Not on file Sexual Orientation Not on file documented as of this encounter Plan of Treatment Not on file documented as of this encounter Goals Goal Patient Goal Type Associated Problems Recent Progress Patient-Stated? Author CCM Chronic Pain Care Plan Chronic Care Management On track(2023 2:49 PM GROUP BILLING COORDINATOR) No Marianela Pineda RN Note: Problem: Chronic [...] documented as of this encounter Care Teams Education And Training Coordinator Relationship Specialty Start Date End Date Jonas Mullins MD PCP - General 02/17/11 Kindra Nascimento OD Referring Physician Optometry 03/02/22 documented as of this encounter
--- OUTSIDE RECORDS SUMMARY | 2025-03-07 14:04 | XMS_ITS ---
Author Organization [facility] [address] [facility] [place] [address] Care Team Providers Care Consumer Loan Manager Name Role Phone Jonas Mullins MD Primary Care Provider [phone] DemetrKindra black OD Unavailable [phone] Active Problems Problem Noted Date Diagnosed Date Superficial punctate keratitis of both eyes 07/09 Assessment & Plan (07/31/2024 5:21 PM CHIEF ACCOUNTANT): Mild inferior PEE. Reports FBS onset since [...] today: Assessment & Plan (07/31/2024 5:20 PM CHIEF ACCOUNTANT): Images from the original note were not included. Has an elevated lesion of the inferior palpebral conj measuring 2.5mmx2.5mm. 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 Picture taken below for reference. Recommend repeat anterior exam in 2-3 months to monitor for stability. Nephrolithiasis 06/03/2023 Meibomian gland dysfunction (MGD) of upper and lower lids of both eyes 06/01/2023 Assessment & Plan (06/01/2023 10:46 AM CHIEF ACCOUNTANT): Significant MGD and blepharitis. Large chalazia of [...] 05/15/2020 Assessment & Plan (06/01/2023 10:46 AM CHIEF ACCOUNTANT): Doing well, follow. Assessment & Plan (10/28/2021 11:36 AM CDT): Clear and centered both eyes (OU); great outcome Assessment & Plan (05/15/2020 1:25 PM CHIEF ACCOUNTANT): Centered and stable lenses, clear capsules Monitor Chalazion of left lower eyelid 05/15/2020 Assessment & Plan (07/31/2024 5:14 PM CHIEF ACCOUNTANT): Has a stable chalazion on HUNTER Assessment & Plan (07/09/2023 12:35 PM CHIEF ACCOUNTANT): Chalazia LLL with significant improvement with warm compresses and maxitrol. IOP 05/19. - Continue warm compresses PRN - Will give additional tube of maxitrol as needed. If requiring regular use then patient will call for appointment F/U 1 year with [facility] Assessment & Plan (06/01/2023 10:48 AM CHIEF ACCOUNTANT): Patient also mentions some type of internal twitching/fasciculation of LLL. Patient noticed during inferior indirect exam, but there was no movement of the globe during this episode. 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 Assessment & Plan (05/15/2020 1:27 PM CHIEF ACCOUNTANT): Internal hordeolum left eye (OS), warm compresses Myalgia 01/02/2020 Neck pain 01/02/2020 Age-related nuclear cataract of right eye s/p KPE/PCIOL OD 08/08/19 07/13/2019 Overview (07/13/2019): Added automatically from request for surgery [id number] Assessment & Plan (08/16/2019 9:07 AM CDT): [...] finish Assessment & Plan (08/09/2019 7:27 AM CHIEF ACCOUNTANT): POD1 status post (s/p) KPE/ PCIOL OD Doing well Reviewed activity instructions and warning signs Start PF and ofloxacin QID RTC 1 week s/p CE/PCIOL OS 05/26/19 05/27/2019 Assessment & Plan (07/03/2019 10:28 AM CHIEF ACCOUNTANT): 1 mth POV s/p CE/PCIOL OS 05/26/19 [...] finish Assessment & Plan (06/01/2019 8:10 PM CHIEF ACCOUNTANT): Post-op week sp 1 KPE/IOL OS Healing well Stop ofloxacin Taper PF 1gtt/week RTC 3 weeks for post-op month 1 visit Assessment & Plan (05/27/2019 8:13 AM CHIEF ACCOUNTANT): POD1 CE/PCIOL OS - Pt is doing [...] (04/12/2019): Added automatically from request for surgery [id number] Age-related nuclear cataract of both eyes 11/23/2017 [...]
--- OUTSIDE RECORDS SUMMARY | 2025-03-07 14:04 | XMS_ITS | Encounter Summary ---
Author Organization [facility] Address [address] [place] [address] Care Team Providers Care Optical Model Maker And Tester Name Role Phone Jonas Mullins MD Primary Care Provider [phone] Kindra Nascimento OD Unavailable [phone] Reason for Visit * Reason Onset Date Comments MED REFILLS 02/11/2021 Encounter Details Date Type Department Care Team (Late st Contact Info) Description 02/11/2021 Telephone [facility] [place] [facility] [address] [facility] [address] [place], [place] [phone] Keith Naik MD [address] [place] [address] MED REFILLS Social History Tobacco Use Types Packs/Day Years Used Date Smoking Tobacco: Never Smokeless Tobacco: Never Alcohol Use Standard Drinks/Week Comments Not Currently 0 (1 standard drink = 0.6 oz pur e alcohol) denies Sex and Gender Information Value Date Recorded Sex Assigned at Not on file Legal Sex Male 12:58 AM SAXOPHONE TEACHER Gender Identity Not on file Sexual Orientation [...] Chronic Care Management On track(2023 2:49 PM SAXOPHONE TEACHER) Marianela Molina, RN Note: Problem: Chronic Pain [...] documented as of this encounter Care Teams Optical Model Maker And Tester Relationship Specialty Start Date End Date Jonas Mullins MD PCP - General 02/17/11 Kindra Nascimento OD Referring Physician Optometry 03/02/22 documented as of this encounter
--- OUTSIDE RECORDS SUMMARY | 2025-03-07 14:04 | XMS_ITS | Encounter Summary ---
Author Organization [facility] Address [address] [place] [address] Care Team Providers Care Email Campaign Manager Name Role Phone Jonas Mullins MD Primary Care Provider Kindra Nascimento OD Unavailable [phone] Encounter Details Date Type Department Care Team (Late st Contact Info) Description 05/12/2022 Telephone [facility] [place] [facility] [address] [facility] [address] [place] [address] Keith Naik MD [address] [place] [address] Social History Tobacco Use Types Packs/Day Years [...] on file Legal Sex Male 12:58 AM FAX MACHINE 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 Author CCM Chronic Pain Care Plan Chronic Care Management On track(11/18/ 2024 2:49 PM FAX MACHINE REPAIRER) Marianeal Molina, RN Note: Problem: Chronic Pain Goals: 1. Minimize further functional decline 2. Maximize quality of life 3. Control pain Strategies: - Activity/exercise program recommendation - Conservative stepwise pain medicine strategy with multi-disciplinary approach - Recommend healthy lifestyle strategies and compensatory methods as needed documented as of this encounter Visit Diagnoses Not on filedocumented in this encounter Care Teams Email Campaign Manager Relationship Specialty Start Date End Date Jonas Mullins MD PCP - General 02/17/11 Kindra Nascimento OD Referring Physician Optometry 03/02/22 documented as of this encounter
--- OUTSIDE RECORDS SUMMARY | 2025-03-07 14:04 | XMS_ITS | Encounter Summary ---
Author Organization [facility] Address [address] [place] [address] Care Team Providers Care Mental Health Tech Name Role Phone Unavailable Primary Care Provider Unavailabl e Encounter Details Date Type Department Care Team (Latest Contact Info) Description 04/12/2018 Abstract [facility] , Isabel Cote MD [...]
--- OUTSIDE RECORDS SUMMARY | 2025-03-07 14:04 | XMS_ITS | Clinical Summary ---
Author Organization [facility] Address [address] [place] [address] Care Team Providers Care Pressure Dispatcher Name Role Phone Unavailable Primary Care Provider [...] 1:34 PM CDT Height 195.6 cm (6' 5) 12/20/2013 1:34 PM CDT Body Mass Index 28.82 12/20/2013 1:34 PM CDT Plan of Treatment Health Maintenance Due Date Last Done Comments Hepatitis C 1963 DTaP, Tdap and Td Vaccines ( 1 - Tdap) 1966 Pneumococcal Vaccine: 50+ Ye ars (1 of 1 - PCV) 1997 Zoster Vaccines (1 of 2) 1997 RSV Immunization or 60+ Years (1 - 1-dose 75+ series) 2022 COVID-19 Vaccine (1 - 2023-2 5 season) 2025 Meningococcal B Vaccine Aged Out No l onger eligible based on patient's age to complete this topic Meningococcal Vaccine Aged Out No emmanuelle chon eligible based on patient's age to complete this topic RSV Immunizations Under 20 Months Aged Out No longer eligible based on patient's age to complete this topic
--- OUTSIDE RECORDS SUMMARY | 2025-03-07 14:04 | XMS_ITS | Clinical Summary ---
Author Organization [facility] Medical [facility] 2 Address [address] [facility] [place] [address] Care Team Providers Care Service Technician Copier Name Role Phone Jonas Mullins MD Primary Care Provider [phone] DemKindra renteria OD Unavailable [phone] Allergies Active Allergy Reactions Criticality Noted Date Comments Scott Inhibitors Cough Low 04/18/2007 Adhesive Tape-Silicones Rash Medium 04/18/2007 Amoxicillin Rash Medium 05/14/2023 Cephalexin Hives,Rash Medium 04/18/2007 Latex Rash Medium 10/16/2010 Penicillins Rash Medium 05/14/2023 Medications finasteride (PROSCAR) 5 mg tabletIndications: benign prostatic hyperplasia with lower urinary tract sx Take 1 tablet (5 mg total) by mouth nightly 3 Active flecainide (TAMBOCOR) 100 mg tabletIndications: A fib. Take 1 tablet (100 mg total) by mouth 2 (two) times a day 7 Active LORazepam (ATIVAN) 1 mg tabletIndications: anxiety Take 1 tablet (1 mg total) by mouth every 8 (eight) hours 0 8 Active zolpidem (AMBIEN) 10 mg tabletIndications: Sleep-Onset Insomnia Take 1 tablet (10 mg total) by mouth nightly 1 8 Active fish oil-dha-epa 1,200-144-216 mg capsuleIndications :supplement [...] (NIZORAL) 2 % cream 0 Active vitamin B51-luhil acid 0.5-1 mg tablet Take by mouth Active alendronate (FOSAMAX) 70 mg tablet TAKE 1 TABLET BY MOUTH WEEKLY 3 Active triamcinolone (KENALOG) 0.1 % cream 3 Active rivaroxaban (XARELTO) 10 mg tablet Take 1 tablet (10 mg total) by mouth daily Reported on 05/14/2023 Takes prn if having pAFib bouts Active glucos sul 7VAm-zrg-qhhjq-C-M n (Glucosamine Chondroitin) 550-30-1 mg capsule Take 1 capsule by mouth daily Active tadalafiL (Cialis) 5 mg tablet Take by mouth once daily as needed 6 Active neomycin-polymyxin B-dexAMETHasone (MAXITROL) 3.5 mg/g-10,000 unit/g-0.1 % ointment Apply to both eyelids twice a day. 3.5 g 1 4 Active amLODIPine (NORVASC) 2.5 mg tablet Take 1 tablet (2.5 mg total) by mouth 2 (two) times a day 4 Active flecainide (TAMBOCOR) 50 mg tablet TAKE 1 TABLET BY MOUTH AT LUNCH 4 Active lidocaine (LIDODERM) 5 %Indications:Posth erpetic Neuralgia Apply 1 patch topically daily Remove & discard patch within 12 hours or as directed by . 30 patch 11 4 Active prednisoLONE acetate (PRED FORTE) 1 % ophthalmic suspension Administer 1 drop into both eyes 2 (two) times a day 5 mL 1 5 Active olopatadine (PATADAY) 0.2 % ophthalmic solutionIndication s:Allergic Conjunctivitis Administer 1 drop into both eyes daily 2.5 mL 11 5 Active omega-3 fatty acids 1,000 mg capsule 1,000 mg 2 Active garlic 100 mg tablet Take by oral route. Active chondroit-collagen -hyaluron-AA 80-400-40 mg capsule mg, 0 9 Active hdyukzmd-jqqfog-de s8-P3-D-fer 750-625-1,000 mg-mg-unit tablet mg, tablet(s), 0 9 Active metoprolol succinate (KAPSPARGO) 25 mg capsule,sprinkle,E R 24hr extended release capsule 25 mg 4 Active cholecalciferol (VITAMIN D-3) 2000 unit capsule Take by oral route. Active celecoxib (CeleBREX) 200 mg capsule Take 1 capsule (200 mg total) by mouth daily 5 Active cyanocobalamin (Vitamin B-12) 1,000 mcg tablet Take by oral route. Active nitroglycerin (Nitrostat) 0.4 mg SL tablet 1 tablet (0.4 mg total) 3 Active Active Problems Problem Noted Date Diagnosed Date Superficial punctate keratitis of both eyes 07/09 Assessment & Plan (07/31/2024 5:21 PM LINE WORKER): Mild inferior PEE. Reports FBS onset since [...] today: Assessment & Plan (07/31/2024 5:20 PM LINE WORKER): Images from the original note were not included. Has an elevated lesion of the inferior palpebral conj measuring 2.5mmx2.5mm. 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 Picture taken below for reference. Recommend repeat anterior exam in 2-3 months to monitor for stability. Nephrolithiasis 06/03/2023 Meibomian gland dysfunction (MGD) of upper and lower lids of both eyes 06/01/2023 Assessment & Plan (06/01/2023 10:46 AM LINE WORKER): Significant MGD and blepharitis. Large chalazia of [...] 05/15/2020 Assessment & Plan (06/01/2023 10:46 AM LINE WORKER): Doing well, follow. Assessment & Plan (10/28/2021 11:36 AM CDT): Clear and centered both eyes (OU); great outcome Assessment & Plan (05/15/2020 1:25 PM LINE WORKER): Centered and stable lenses, clear capsules Monitor Chalazion of left lower eyelid 05/15/2020 Assessment & Plan (07/31/2024 5:14 PM LINE WORKER): Has a stable chalazion on HUNTER Assessment & Plan (07/09/2023 12:35 PM LINE WORKER): Chalazia LLL with significant improvement with warm compresses and maxitrol. IOP /. - Continue warm compresses PRN - Will give additional tube of maxitrol as needed. If requiring regular use then patient will call for appointment F/U 1 year with DFE Assessment & Plan (06/01/2023 10:48 AM LINE WORKER): Patient also mentions some type of internal twitching/fasciculation of LLL. Patient noticed during inferior indirect exam, but there was no movement of the globe during this episode. 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 Assessment & Plan (05/15/2020 1:27 PM LINE WORKER): Internal hordeolum left eye (OS), warm compresses Myalgia 01/02/2020 Neck pain 01/02/2020 Age-related nuclear cataract of right eye s/p KPE/PCIOL OD 08/08/19 07/13/2019 Overview (07/13/2019): Added automatically from request for surgery [id number] Assessment & Plan (08/16/2019 9:07 AM CDT): [...] finish Assessment & Plan (08/09/2019 7:27 AM LINE WORKER): POD1 status post (s/p) KPE/ PCIOL OD Doing well Reviewed activity instructions and warning signs Start PF and ofloxacin QID RTC 1 week s/p CE/PCIOL OS 05/26/19 05/27/2019 Assessment & Plan (07/03/2019 10:28 AM LINE WORKER): 1 mth POV s/p CE/PCIOL OS 05/26/19 [...] finish Assessment & Plan (06/01/2019 8:10 PM LINE WORKER): Post-op week sp 1 KPE/IOL OS Healing well Stop ofloxacin Taper PF 1gtt/week RTC 3 weeks for post-op month 1 visit Assessment & Plan (05/27/2019 8:13 AM LINE WORKER): POD1 CE/PCIOL OS - Pt is doing [...] (04/12/2019): Added automatically from request for surgery [id number] Age-related nuclear cataract of both eyes 11/23/2017 [...] - 12/25/2024 11:59 PM CDT Hospital Encounter [facility] [address] [facility] [address] [place] [address] Keith Naik MD Sacroiliitis (Primary Dx); Other myositis, unspecified site; Myalgia; Chronic right shoulder pain Discharge Disposition: Discharge to home or self care 12/25/2024 Orders Only [facility] [address] [place] [address] Advanced Medicine [address] [place] [address] Keith Naik MD Chronic right shoulder pain (Primary Dx) 12/14/2024 2:15 PM CDT Office Visit [facility] [address] [place] [address] Advanced Medicine 5th [place] [address] [place] [address] Tristen Orta MD Nephrolithiasis (Primary Dx); Primary hypertension; Other chronic pain 12/13/2024 Telephone [facility] [address] [facility] [address] [place] [address] Keith Naik MD PMC Preprocedure 12/12/2024 8:10 AM CDT - 12/12/2024 11:59 PM CDT Hospital Encounter [facility] [address] [place] [address] Nephrolithiasis Discharge Disposition: Discharge to home or self care from Last 3 Months Immunizations Immunization Administration [...] on file Legal Sex Male 12:58 AM LINE WORKER Gender Identity Not on file Sexual Orientation [...] Chronic Care Management On track(2023 2:49 PM LINE WORKER) Marianela Molina, RN Note: Problem: Chronic Pain Goals: 1. Minimize further functional decline 2. Maximize quality of life 3. Control pain Strategies: - Activity/exercise program recommendation - Conservative stepwise pain medicine strategy with multi-disciplinary approach - Recommend healthy lifestyle strategies and compensatory methods as needed Medical Devices Implanted Type Area Police Communications Dispatcher Device Identifier Shelf Expiration Date Model / Serial / Lot [employer] [id number].175 Acrysof Iq Natural Stableforce Acrysert 6mm 13mm 1 Piece Foldable - [id number] - [id number] Implanted:Qty: 1 on 05/26/2019 by Rebekah Feng MD at [facility] Medicine Lens Left: Eye [employer] [id number] 09/05/2023 [id number].17 5 / [id number] / [employer] [id number].180 Acrysof Iq Natural Stableforce Acrysert 6mm 13mm 1 Piece Foldable - [id number] - [id number] Implanted:Qty: 1 on 08/08/2019 by Rebekah Feng MD at [facility] Medicine Right: Eye [employer] [id number] 12/05/2023 SN60WF.18 0 / [id number] / Procedures Procedure Name Priority Date/Time Associated Diagnosis Comments PAIN MGMT IMAGING SI JOINT LEFT Schedule Routine, Read Routine (OP Routine) 12/25/2024 9:02 AM CDT Sacroiliitis US KIDNEY COMPLETE Schedule Routine, Read Routine (OP Routine) 12/12/2024 8:46 AM CDT Nephrolithiasis COLONOSCOPY REPORT 01/21/2016 from Last 3 Months or Most Recently Relevant to Health Maintenance Results * Imaging SI Joint Injection Left ([id number]) (12/25/2024 9:02 AM CDT) Narrative RAD_PACS_[facility] - [...] by: Alex May M.D. Tristen Orta MD [facility] [place] PROCEDURES Final Result * COLONOSCOPY REPORT (01/21/2016) Anatomical Region Laterality Modality Other Narrative 01/21/2016 Ordered by an unspecified provider. Historical Provider GI PROCEDURE ORDERABLES F inal Result from Last 3 Months or Most Recently Relevant to Health Maintenance Insurance [facility] MEDICARE ADVANTAGE MEDICARE [facility] AETNA SIGNATURE COMMERCIAL GENERIC Member Subscriber Plan / Payer (Ef fective 2019-Present) Name:Kathleen Ramkirill Torres Relation to Subscriber:Self Name:Kathleen Ramkirill Torres Payer ID:[id number] Type:COMMERCIAL Address: [address] [facility] MEDICARE ADVANTAGE [facility] Address: [address] [address] [place] [address] [facility] MEDICARE ADVANTAGE Member Subscriber Plan / Payer (Ef fective 2021-Present) Name:MarialuisaKathleen hernandezkirill Torres Relation to Subscriber:Self Name:Carmen Ram Payer ID:[id number] (NAIC) Type:UHC MEDICARE Address: [place] [phone] UHC MEDICARE ADVANTAGE Care Teams Service Technician Copier Relationship Specialty Start Date End Date Jonas Mullins MD PCP - General 02/17/11 Kindra Nascimento OD Referring Physician Optometry 03/02/22
--- OUTSIDE RECORDS SUMMARY | 2025-03-07 14:05 | XMS_ITS | Clinical Summary ---
Author Organization [facility] Address [address] [place] [address] Care Team Providers Care Director Of Revenue Cycle Management Name Role Phone Jonas Mullins MD Primary Care Provider [phone] Source Comments [facility],non-owned Affiliates and Associated Physician Practices is amultiple site organization consisting of ambulatory clinics and hospital sitesin [place], [place], [place] and [place]. This disclosure is being madepursuant to the Care Everywhere program and may not contain all information available regarding this patient. Last updated 18.[facility] Allergies Active Allergy Reactions Criticality Noted Date Comments Scott Inhibitors Cough Low 02/16/2023 Adhesive Sensitivity Rash Medium 04/18/2007 Cephalexin Rash Medium 02/16/2023 Latex Unknown,Rash Medium 10/16/2010 Penicillins Rash Medium 02/16/2023 Medications * Be aware that medications may not be up to date on this document. Alwaysverify current medications with the patient. LORazepam (Ativan) 1 MG tablet Take 1 (one) tablet by mouth 3 times daily Active amLODIPine (Norvasc) 2.5 MG tablet Take 1 (one) tablet by mouth 2 times daily 4 Active zolpidem (Ambien) 10 MG tablet Take 1 (one) tablet by mouth Active losartan (Cozaar) 50 MG tablet Take 1 (one) tablet by mouth 2 times daily Active celecoxib (CeleBREX) 200 MG capsuleIndications :Primary osteoarthritis of both knees Take 1 (one) capsule by mouth once daily 90 capsule 3 5 Active celecoxib (CeleBREX) 200 MG capsuleIndications :Primary osteoarthritis of both knees TAKE 1 CAPSULE BY MOUTH DAILY 30 capsule 2 5 02/08/20 25 Discontin u([facility]) Hospital, Clinic, or Other Facility Administered Medication Ordered Dose Route Frequency Start Date End Date Status methylPREDNISolone acetate (DEPO-Medrol) injection 80 mgIndications:Primary osteoarthritis of left knee 80 mg IX ONCE 02/26/2025 02/27/20 25 Ended lidocaine PF (Xylocaine MPF) 1 % injection 3 mLIndications:Primary osteoarthritis of left knee 3 mL IX ONCE 02/26/2025 02/27/20 25 Ended methylPREDNISolone acetate (DEPO-Medrol) injection 80 mgIndications:Primary osteoarthritis of right knee 80 mg IX ONCE 03/05/2025 03/05/2025 Ended lidocaine PF (Xylocaine MPF) 1 % injection 3 mLIndications:Primary osteoarthritis of right knee 3 mL IX ONCE 03/05/2025 03/05/2025 Ended Encounters Date Type Department Care Team Description 03/05/2025 9:00 AM CDT Office Visit [facility] [address] [place] [address], [address] [address] Godwin Dahl, CUSTOMER SOLUTIONS TEAMMATE-ALIGNMENT TECHNICIAN Primary osteoarthritis of right knee (Primary Dx) 02/26/2025 9:00 AM CDT Office Visit [facility] [address] [place] [address], [address] [address] Godwin Dahl, CUSTOMER SOLUTIONS TEAMMATE-ALIGNMENT TECHNICIAN Primary osteoarthritis of left knee (Primary Dx) 02/07/2025 Refill [facility] [address] [place] [address], [address] [address] Trevor Moncada MD MEDICATION REFILL 01/15/2025 Telephone [facility] [address] [place] [address], [address] [address] Trevor Moncada MD Medication Issue 01/15/2025 Telephone [facility] [address] [place] [address], [address] [address] Trevor Moncada MD Medication Issue 01/10/2025 Refill [facility] [address] [place] [address], [address] [address] Trevor Moncada MD Refill Request from Last 3 Months Social History Tobacco Use Types Packs/Day Years Used Date Smoking Tobacco: Never Smokeless Tobacco: Never Tobacco Cessation:Counseling Given: Not Answered Sex and Gender Information Value Date Recorded Sex Assigned at Not on file Legal Sex Male 6:14 AM OCEAN EXPORT COORDINATOR Gender Identity Not on file Sexual [...] Care Team (Late st Contact Info) Description 05/17/2025 10:00 AM OCEAN EXPORT COORDINATOR Office Visit [facility] [address] [place] [address], [facility] [address] [place] [address] Albertina Elizondo PA-C [address] [facility] [address] [place] [address] Health Maintenance Due Date Last Done Comments HEPATITIS C SCREENING 02/27/1965 DTAP/TDAP/TD VACCINES (1 - Tdap) 1966 PNEUMOCOCCAL VACCINE 50+ (1 of 1 - PCV) 1997 ZOSTER VACCINE (1 of 2) 1997 Respiratory Syncytial Virus (RSV) Vaccine Pt: or over 60 yrs (1 - 1-dose 75+ series) 2022 DEPRESSION SCREENING 06/07/2024 MEDICARE AWV CALENDAR YEAR 2024 COVID-19 VACCINE (2024- season) 2025 03/21/2022, 09/03/2021, 02/28/2021, Additional history exists INFLUENZA VACCINE (#1) 2025 , 04/08/2019, 03/22/2018, Additional history exists HEPATITIS B VACCINE Aged Out No longe r eligible based on patient's age to complete this topic HIB VACCINE Aged Out No longer eligi ble based on patient's age to complete this topic HPV VACCINE Aged Out No longer eligi ble based on patient's age to complete this topic MENINGOCOCCAL (Group B) VACCINE SHARED DECISION-MAKING Aged Out No longer eligible based on patient's age to complete this topic MENINGOCOCCAL GROUPS A/C/Y/W VACCINE Aged Out No longer eligible based on patient's age to complete this topic Insurance MEDICARE AETNA [facility] MA[facility] MEDICARE ADV [facility] MANAGED MEDICARE ADV [facility] MANAGED MEDICARE ADV Care Teams Director Of Revenue Cycle Management Relationship Specialty Start Date End Date Jonas Mullins MD [address] [place] [phone] PCP - General 06/27/18
--- OUTSIDE RECORDS SUMMARY | 2025-03-07 14:05 | XMS_ITS | Clinical Summary ---
Author Organization [facility] Address [address] [place] [address] Phone Care Team Providers Care Manager Multicultural Name Role Phone Jonas Mullins MD Primary [...] Tdap) 03/09/2030 Medical Devices Implanted Type Area Heel Stainer Device Identifier Shelf Expiration Date Model / Serial / Lot Rogelio Rogelio Leg Wire Wire Hip Insurance MEDICARE PART A AND B RX ENVISIONRX Commercial RX [employer] PL[employer] (INTERNAL) [facility] Plans Advance Directives For more information, please contact: [phone] * Full Code (Latest Code Status on File) Date Activated Date Inactivated Comments 03/10/2020 12:35 AM 03/13/2020 3:42 PM Care Teams Manager Multicultural Relationship Specialty Start Date End Date Jonas Mullins MD [address] [place] [phone] PCP - General Internal Medicine 03/09/20
--- OUTSIDE RECORDS SUMMARY | 2025-03-07 14:05 | XMS_ITS | Encounter Summary ---
Author Organization [facility] Address [address] [place] [address] Care Team Providers Care Customer Assistance Associate Name Role Phone Jonas Mullins MD Primary Care Provider [phone] Reason for Visit * Reason Onset Date Comments Appointment 06/30/2018 Encounter Details Date Type Department Care Team (Late Contact Info) Description 06/30/2018 Telephone [facility] On[facility] [address] [place], [place] [id number] Ricarda Queen MD [address] [facility] [address] [place] [address] Appointment Social History Tobacco Use Types Packs/Day Years Used Date Smoking Tobacco: Never Assessed Sex and Gender Information Value Date Recorded Sex Assigned at Not on file Legal Sex Male 6:14 AM LIGHTING FIXTURES DECORATOR Gender Identity Not on file Sexual Orientation Not on file documented as of this encounter Miscellaneous Notes * Telephone Encounter - Gisselle Macario - 06/30/2018 9:34 AM CST Mr. Elam called this morning stated that he has left messages for someone to call him back from [facility]. Please call pt back at [phone]. Thanks Gisselle Ramsey TING FIXTURES DECORATOR documented in this encounter Plan of Treatment Upcoming Encounters Date Type Department Care Team (Late Contact Info) Description 05/17/2025 10:00 AM LIGHTING FIXTURES DECORATOR Office Visit [facility] Orthopedics [address] [place] [address], [address] [place] [address] Albertina Elizondo, PA-C [address] [place] [phone] documented as of this encounter Visit Diagnoses Not on filedocumented in this encounter Care Teams Customer Assistance Associate Relationship Specialty Start Date End Date Jonas Mullins MD [address] [place] [address] PCP - General 06/27/18 documented as of this encounter
--- OUTSIDE RECORDS SUMMARY | 2025-03-07 14:05 | XMS_ITS | Encounter Summary ---
Author Organization [facility] Address [address] [facility] [place] [address] Care Team Providers Care Drama Director Name Role Phone Jonas Mullins MD Primary Care Provider [phone] Encounter Details Date Type Department Care Team (Late Contact Info) Description 12/31/2022 Lab Requisition [facility] - DermPath Lab [address] [place] [address] Jerry Cohn MD [address] [place] [address] Social History Tobacco Use Types Packs/Day Years Used Date Smoking Tobacco: Never Assessed Sex and Gender Information Value Date Recorded Sex Assigned at Not on file Legal Sex Male 6:14 AM SPRING ASSEMBLER SUPERVISOR Gender Identity Not on file Sexual Orientation Not on file documented as of this encounter Plan of Treatment Upcoming Encounters Date Type Department Care Team (Late Contact Info) Description 05/17/2025 10:00 AM SPRING ASSEMBLER SUPERVISOR Office Visit [facility] [address] [facility], [address] [address] Albertina Elizondo PA-C [address] [address] documented as of this encounter Procedures Procedure Name Priority Date/Time Associated Diagnosis Comments DERMATOPATHOLOGY Routine 12/31/2022 12:0 0 AM CDT documented in this encounter Results * DERMATOPATHOLOGY (12/31/2022 12:00 AM CDT) Case Report Dermatopathology Report Case: [id number] Authorizing Provider: Jerry Cohn MD Collected: 12/31/2022 12:00 AM Ordering Location: [facility] Derm[facility] Lab Received: 12/31/2022 05:07 PM Pathologist: Bebe Baumann MD Specimens: A) - Skin, right chin B) - Skin, left chin 4:55 PM T DERMATOPATHOLOGY LABORATORY Final Diagnosis Specimen A. 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 SKIN, left chin: SOLAR ELASTOSIS AND VASCULAR ECTASIA (L57.8) PRESENT AT MARGIN (see microscopic description) 4:55 PM T DERMATOPATHOLOGY LABORATORY at 1655 CDT Clinical History [...] and 2x5x1 mm. Jar 0. 4:55 PM T DERMATOPATHOLOGY LABORATORY Microscopic Description Specimen A. SKIN, [...] a deeper dermal process cannot be excluded. 4:55 PM T DERMATOPATHOLOGY LABORATORY Disclaimer An external and internal positive and negative controls are appropriate for the histochemical, immunohistochemical and immunofluorescence stain(s) in this case (if any), except where stated explicitly. The performance characteristics of the stain(s) cited in this report were developed and its performance characteristic determined by the Dermatopathology Laboratory at [facility], directed by Dr. Aleksandr Wolf. These tests need not be, and therefore are not, approved by the [place] Food and Drug Administration. The tests are used for clinical purposes. Billing Codes Specimen Charges Stain Charges 07231 [id number] 1 1 3 4:55 PM CDT DERMATOPATHOLOGY LABORATORY Embedded Images 3 4:55 PM CDT DERMATOPATHOLOGY LABORATORY Pathology/Cytology TISSUE SPECIMEN FROM SKIN / Unknown 12/31/2022 12/31/2022 5:07 PM CDT Miscellaneous samples (specimen) TISSUE SPECIMEN FROM SKIN / Unknown 12/31/2022 12/31/2022 5:07 PM CDT Jerry Cohn MD LAB - PATHOLOGY/CYTOLOGY ORDERAB LES Final Result DERMATOPATHOLOGY LABORATORY [facility] Department of Dermatology [facility] Medicine [address] [place] [address], [address]rd [address] [phone] documented in this encounter Visit Diagnoses Not on filedocumented in this encounter Care Teams Drama Director Relationship Specialty Start Date End Date Jonas Mullins MD [address] [place] [address] PCP - General 06/27/18 documented as of this encounter
--- OUTSIDE RECORDS SUMMARY | 2025-03-07 14:05 | XMS_ITS | Encounter Summary ---
Author Organization [facility] Address [address] [place] [address] Care Team Providers Care Machine Plug Shaper Name Role Phone Jonas Mullins MD Primary Care Provider [phone] Encounter Details Date Type Department Care Team (Late Contact Info) Description 02/27/2021 Lab Requisition [facility] [address] [place] [address] Jerry Cohn MD [address] [place] [address] Social History Tobacco Use Types Packs/Day Years Used Date Smoking Tobacco: Never Assessed Sex and Gender Information Value Date Recorded Sex Assigned at Not on file Legal Sex Male 6:14 AM CHAIN SAW OPERATOR Gender Identity Not on file Sexual Orientation Not on file documented as of this encounter Plan of Treatment Upcoming Encounters Date Type Department Care Team ([facility] Contact Info) Description 05/17/2025 10:00 AM CHAIN SAW OPERATOR Office Visit [facility] Orthopedics [address] [place] [address] Albertina Elizondo PA-C [id number] [place] [address] documented as of this encounter Procedures Procedure Name Priority Date/Time Associated Diagnosis Comments DERMATOPATHOLOGY Routine 02/25/2021 12:0 0 AM CDT documented in this encounter Results * DERMATOPATHOLOGY (02/25/2021 12:00 AM CDT) Case Report Dermatopathology Report Case: [id number] Authorizing Provider: Jerry Cohn MD Collected: 02/25/2021 12:00 AM Ordering Location: [facility] DermPath Lab Received: 02/27/2021 10:10 AM [...] specimen consists of a shave biopsy measuring [id number]. Jar 0. 1:45 PM CDT DERMATOPATHOLOGY LABORATORY [...] characteristic determined by the Dermatopathology Laboratory at [facility], directed by Dr. Aleksandr Wolf. These tests need not be, and therefore are not, approved by the [place] Food and Drug Administration. The tests are used for clinical purposes. Billing Codes Specimen Charges Stain Charges 64287 1 1:45 PM CDT DERMATOPATHOLOGY LABORATORY Embedded Images 1:45 PM CDT DERMATOPATHOLOGY LABORATORY Pathology/Cytolog y TISSUE SPECIMEN FROM SKIN / Unknown 02/25/2021 02/27/2021 10:10 AM CDT Jerry Cohn MD LAB - PATHOLOGY/CYTOLOGY ORDERAB LES Final Result DERMATOPATHOLOGY LABORATORY [facility] - Department of Dermatology [facility] Medicine [address] [place] [address], [address] [phone] documented in this encounter Visit Diagnoses Not on filedocumented in this encounter Care Teams Machine Plug Shaper Relationship Specialty Start Date End Date Jonas Mullins MD [address] [place] [address] PCP - General 06/27/18 documented as of this encounter
== END 2025-03-07 13:58 | disposition home or self-care (01) ==
PROVIDERS: PCP Internal Medicine; Visit Provider Internal Medicine
DX: M25.552 Pain in left hip (principal)
CPT/HCPCS: 73502

== ENCOUNTER 2025-03-13 07:49 | Outpatient (CLI) | payer MEDICARE, SELFPAY ==
--- OUTSIDE RECORDS SUMMARY | 2024-10-02 04:30 | XMS_ITS | Continuity of Care Document ---
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 Name Role Phone Shari JOHNSON MD, Ori Unavailable Unavaila ble Allergies, Adverse Reactions, Alerts Substance Reaction Status Criticality latex Rash Active No Information TAPE, OCCLUSIVE ADHESIVE Active No Information latex Active No Information CEPHALEXIN MONOHYDRATE Active No In formation Procedures Procedure Date X-ray exam knee, 4+ views BMI Documented Above Normal Limit F/U Pl an Doc Office/outpatient visit,est, high BMI Documented Above Normal Limit F/U Pl an Doc Xray Copy Kenalog 40mg/mL Asp/inject major joint or bursa [...] Provider Providers Copied on Encounter Office/outpa tient visit,est, high [facility], [address], [id number], [place] tel:[phone] [facility] [facility] bilat knees (chief complaint) Pain in left kneePain in right kneeBilateral primary osteoarthritis of knee 5 Shari Rehman. [address], [id number], [place]. tel:[phone] Referring Provider: Jerry Doyle, [address] [place] [address], [place], [address]. tel:[phone] [facility], [address], [id number], [place] tel:[phone] [facility] No Information 5 Administrati ve Provider. [address] [address], [place], [place], [id number], [place]. tel:[phone] Office/outpa tient visit,est, [facility], [address], [id number], [place] tel:[phone] [facility] left knee (chief complaint) Pain in left kneePain in right kneeBilateral primary osteoarthritis of knee 3 Shari Rehman. [address], [id number], [place]. tel:[phone] Referring Provider: Jefry Soliz, [address] [facility] [address] [facility], [place], [address] . tel:[phone] Office/outpa tient visit,[facility], [facility] [place], [address] [address], [place], [place], [id number], [place] tel:[phone] [facility] Left Knee (chief complaint) Pain in left kneeUnilateral primary osteoarthritis , left knee Dec-0 5 3 Shari Rehman. [address] [facility], [address] [address], [place], [place], [id number], [place]. tel:[phone] Referring Provider: Jefrydavid Soliz, [address] [address], [place], [address] . tel:[phone] Office/outpa tient visit,[facility], [facility] [place] [place] [facility], [address] [address], [place], [place], [id number], [place] tel:[phone] [facility] Hip and Knee (chief complaint) Pain in left hipPain in left kneePain in right kneeBilateral primary osteoarthritis of kneeUnilateral primary osteoarthritis , left hip Armen- 9 Shari Rehman. [address] [address], [place], [place], [id number], [place]. tel:[phone] Referring Provider: Jerry Doyle, [address] [address], [place], [address]. tel:[phone] Office/outpa tient visit,[facility], [address] [address], [place], [place], [id number], [place] tel:[phone] [facility] Foot And Ankle Pain (chief complaint) Feet and ankles (chief complaint) Pain in footPain in ankleHypertens ionPrimary osteoarthritis , right ankle and footPrimary osteoarthritis , left ankle and foot Armen- 0-201 9 Surinder Edwards. [address] [facility], [address] [address], [place], [address], [place]. tel:[phone] Referring Provider: Jerry Doyle, [address] [facility] [address], [place], [address]. tel:[phone] Family History Family Member Type Diagnosis Age [...] Unspecified Payers Payer name Insurance type Covered constitution party ID Authoriza tion(s) [employer] Medicare Advantage CI [id number] Social History Type Description Quantity Date Captured Comments Alcohol Use Details Unknown Caffeine Use Details Unknown Tobacco Use Status Current non-smoker Smoking Status Never smoker Non-Smoking Tobacco Use Details : No Details Available : No Details Available Sex Male Vital Signs Date / Time: Height Weight BMI Pulse Rate Blood Pressure Temperature Respiratory Rate Body Surface Area Head Circumference Head Circ. Percentile Wt./Lauri. Percentile BMI percentile Pulse Ox Inhaled Ox 10:31 AM 76.00 in 111.584 kg (246.00 lbs) 29.9 4 kg/m rene (2) Chief Complaint And Reason For Visit From encounter dated 10/02/2024 09:30'. bilat knees (chief complaint). Description: Carmen is a 79 year-old male who presents to the office for evaluation of bilat knee pain. He is 250 pounds. Presents with a rolling walker. He has multiple orthopedic issues including spinal stenosis, history of a left hip fracture that became infected. Hedoes not have any hardware in his left hip at this time. He also sustained a fracture to his left tibial plateau and has a lateral locking plate. He presents today with concerns for his bilateral knee pain. He has been treated in our practice in the past he has had bilateral steroid injections withAndrea Garcia approximately one year ago. He is also had injections on 24 August 2024 by his nurse practitioner. Currently he rates his pain is 7 out of 10 it is aching constant sharp stabbing and throbbing. He endorses crunching noises, giving way, grinding, locking, popping, spasming and stiffness. His pain is worse with climbing stairs descending stairs standing and walking. Pain is improved withinjections bracing exercise massage physical therapy and stretching. Radiographs AP lateral merchant Hurst view of right knee, demonstrate osteopenia. Severe arthritis of the medial and lateral tibiofemoral compartments. Severe patellofemoral arthritis with patellar erosion and lateral tracking. AP lateral merchant and Hurst view of the left knee demonstrate severe tibiofemoral arthritis of the medial and lateral compartments. Severe patellofemoral arthritis with lateral tracking. Thereis a healed tibial metadiaphyseal fracture with lateral locking plate in good position. Impression severe bilateral osteoarthritis of the knees predominately patellofemoral, with severe arthritis of the tibiofemoral compartments as well Reason For Referral Reason For Referral No Information Plan Of Treatment Date Type Action Status Referral Ordered: X-ray exam knee, 4+ views Bilateral knee ordered Referral Ordered: X-ray exam knee, 4+ views LT knee ordered Referral Ordered: X-ray Exam Hip Unilat With Pelvis When Perf 2-3 View LT hip ordered Referral Ordered: X-ray exam knee, 3 views RT knee ordered Referral Ordered: X-ray exam foot, minimum 3 views Bilateral foot ordered Referral Ordered: X-ray exam ankle, minimum 3 views Bilateral ankle ordered Future Order: Radiology Order X- ray exam knee, 4+ views LT knee ([id number]), Body Site: knee, Sent on: Sent Future Order: Lab Order CBC W/Di ff (CBC w/Diff), Ordered on: Ordered Future Order: Lab Order C Reacti ve Protein (CRP), Ordered on: Ordered Future Order: Lab Order Sed Rate (Sed Rate), Ordered on: Ordered History Of Present Illness Encounter Date Complaint History Of Tony nt Illness bilat knees Carmen is a 79 yea r-old male who presents to the office for evaluation of bilat knee pain. He is 250 pounds. Presents with a rolling walker. He has multiple orthopedic issues including spinal stenosis, history of a left hip fracture that became infected. He does not have any hardware in his left hip at this time. He also sustained a fracture to his left tibial plateau and has a lateral locking plate. He presents today with concerns for his bilateral knee pain. He has been treated in our practice in the past he has had bilateral steroid injections with Jefry Garcia approximately one year ago. He is also had injections on 24 August 2024 by his nurse practitioner. Currently he rates his pain is 7 out of 10 it is aching constant sharp stabbing and throbbing. He endorses crunching noises, giving way, grinding, locking, popping, spasming and stiffness. His pain is worse with climbing stairs descending stairs standing and walking. Pain is improved with injections bracing exercise massage physical therapy and stretching. Radiographs AP lateral merchant Hurst view of right knee, demonstrate osteopenia. Severe arthritis of the medial and lateral tibiofemoral compartments. Severe patellofemoral arthritis with patellar erosion and lateral tracking. AP lateral merchant and Hurst view of the left knee demonstrate severe tibiofemoral arthritis of the medial and lateral compartments. Severe patellofemoral arthritis with lateral tracking. There is a healed tibial metadiaphyseal fracture with lateral locking plate in good position. Impression severe bilateral osteoarthritis of the knees predominately patellofemoral, with severe arthritis of the tibiofemoral compartments as well left knee Carmen presents to the office [...] physical therapy. He is utilizing pain patches, qoeu-mee-cbtutul medications and NSAIDs as well as bracing [...] of a walker at today's office visit. Left Knee Carmen presents to the office today [...] with weightbearing and ambulation. He is utilizing xtzz-tom-iwtgzuk pain medications or NSAIDs, exercise, heat and massage for pain control with no efficacy. He has ambulating with the use of a walker at today's office visit. Hip and Knee Foot And Ankle Pain Feet and ankles Functional Status Date Functional Assessmen t No Information Instructions Date Instruction Additional Infor gab After discussing the risks benefits and alternatives to treatment. Risks include DVT, PE, infection, persistent pain, swelling and stiffness, damage to nerves and arteries, fracture, and loosening. Additional, medical complications related to surgery including constipation, pneumonia, urinary retention, and other issues. The patient understands all this and wishes to proceed with knee arthroplasty. We discussed the hospital course, the postoperative rehabilitation protocol including aggressive outpatient physical therapy. We discussed that if physical therapy is not optimized the patient could develop stiffness of the knee leading to suboptimal outcomes. We also discussed DVT prophylaxis this includes aspirin. Appropriate preoperative radiographs were obtained for templating purposes. All questions were answered wrist and benefits explained the patient wishes to [facility] possibly cemented prosthesisPossibly patellar resurfacingAspirin for DVT prophylaxisAgain discussed he has quite a bit of baseline debility and he may struggle with recovery after knee replacementPatient plans on seeking a second opinion this is reasonable for him.Again I think he is a marginal candidate for knee replacement and would benefit but will likely always have some other debility holding back his recovery. Related to Pain in left knee Continuation of cons ervative treatments, risks and [...] our office as needed. Dictation completed with Oxonica software, grammatical variances and spelling errors may inadvertently occur. Related to Bilateral primary osteoarthritis of knee Pathophysiology of t he disease process was discussed. Conservative treatment options were discussed including cortisone injections, visco supplementation injections, physical therapy, the use of ice or heat, the use of yowe-jpm-pkwatyx nonsteroidal anti-inflammatory type medications and fatl-skm-rkeizgg pain medications, and the use of bracing. [...] them back as needed. Dictation completed with Oxonica software, grammatical variances and spelling errors may inadvertently occur. Related to Unilateral primary osteoarthritis, left knee Assessments Type Assessment Date assessment Pain in left knee assessment Pain in right knee assessment Bilateral primary osteoarthritis of knee impression This is a highly com plex gentleman who has severe physical debility I have explained to him that he is a candidate for knee replacement. But he likely will still have quite a bit of orthopedic challenges even after knee replacement. He has spinal stenosis and injury of the hip and walks with bilateral braces and rolling walker. I think a knee replacement could give him some benefit but he would need to be realistic about his overall functional improvement. Left side would certainly be higher risk is there would be some plate removal necessary surgery would need to be done at [place] [facility] that he would not be able to discharge in the outpatient setting. He could even require [facility] facility. We discussed increased risk of infection and possibly stage surgery on the left side due to the prior plating. After exhaustion of non-surgical treatment options, the patient has utilized a brace, anti-inflammatories, pain management, physical therapy. Radiographs demonstrate end stage osteoarthritis of the knee and multiple compartments. The patient has persistent pain that is worse with activity. This pain is affecting her life in a negative way. the patient wishes to proceed with total knee arthroplasty, based on the failure of non-surgical treatment methods for knee arthritis. Patient Care Teams Name Effective Dates (start - stop) Status Members No Information
--- OUTSIDE RECORDS SUMMARY | 2025-03-13 07:55 | XMS_ITS | Encounter Summary ---
Author Organization [facility] Address [address] [place] [address] Care Team Providers Care Risk And Insurance Manager Name Role Phone Unavailable Primary Care Provider Unavailabl e Encounter Details Date Type Department Care Team (Latest Contact Info) Description 04/12/2018 Abstract [facility] , Isabel Cote MD Social [...]
--- OUTSIDE RECORDS SUMMARY | 2025-03-13 07:55 | XMS_ITS | Encounter Summary ---
Author Organization [facility] Healthcare Address [address] [place] [address] Care Team Providers Care Design Editor Name Role Phone Jonas Mullins MD Primary Care Provider [phone] Kindra Nascimento OD Unavailable [phone] Reason for Visit * Reason Onset Date Comments Prior Auth 04/19/2019 Gabapentin 600mg NPR Encounter Details Date Type Department Care Team (Late st Contact Info) Description 04/19/2019 Telephone [facility] [address] [facility] Advanced Medicine [address] [place] [address] Keith Naik MD [address] [place] [address] Prior Auth (Gabapentin 600mg NPR) Social History Tobacco Use Types Packs/Day Years Used Date Smoking Tobacco: Never Smokeless Tobacco: Never Alcohol Use Standard Drinks/Week Comments Yes 0 (1 standard drink = 0.6 oz pur e alcohol) Sex and Gender Information Value Date Recorded Sex Assigned at Not on file Legal Sex Male 12:58 AM GANG SAW OPERATOR Gender Identity Not on file Sexual Orientation Not on file documented as of this encounter Plan of Treatment Not on file documented as of this encounter Goals Goal Patient Goal Type Associated Problems Recent Progress Patient-Stated? Author CCM Chronic Pain Care Plan Chronic Care Management On track(2023 2:49 PM GANG SAW OPERATOR) No Marianela Pineda RN Note: Problem: Chronic [...] documented as of this encounter Care Teams Design Editor Relationship Specialty Start Date End Date Jonas Mullins MD PCP - General 02/17/11 Kindra Nascimento OD Referring Physician Optometry 03/02/22 documented as of this encounter
--- OUTSIDE RECORDS SUMMARY | 2025-03-13 07:55 | XMS_ITS | Encounter Summary ---
Author Organization [facility] Address [address] [place] [address] Care Team Providers Care Sales Floor Manager Name Role Phone Jonas Mullins MD Primary Care Provider [phone] Encounter Details Date Type Department Care Team (Late Contact Info) Description 02/27/2021 Lab Requisition [facility] Care DermPath Lab [address] [place] [address] Jerry Cohn MD [address] [place] [address] Social History Tobacco Use Types Packs/Day Years Used Date Smoking Tobacco: Never Assessed Sex and Gender Information Value Date Recorded Sex Assigned at Not on file Legal Sex Male 6:14 AM SUPERVISOR DENTAL LABORATORY Gender Identity Not on file Sexual Orientation Not on file documented as of this encounter Plan of Treatment Upcoming Encounters Date Type Department Care Team ([facility] Contact Info) Description 05/17/2025 10:00 AM SUPERVISOR DENTAL LABORATORY Office Visit [facility] Orthopedics [address] [place] [address] Albertina Elizondo PA-C [id number] [place] [address] documented as of this encounter Procedures Procedure Name Priority Date/Time Associated Diagnosis Comments DERMATOPATHOLOGY Routine 02/25/2021 12:0 0 AM CDT documented in this encounter Results * DERMATOPATHOLOGY (02/25/2021 12:00 AM CDT) Case Report Dermatopathology Report Case: [id number] Authorizing Provider: Jerry Cohn MD Collected: 02/25/2021 12:00 AM Ordering Location: [facility] DermPath Lab Received: 02/27/2021 10:10 [...] specimen consists of a shave biopsy measuring [id number]. Jar 0. 1:45 PM CDT DERMATOPATHOLOGY LABORATORY [...] determined by the Dermatopathology Laboratory at [facility], directed by Dr. Aleksandr Wolf. These tests need not be, and therefore are not, approved by the [place] Food and Drug Administration. The tests are used for clinical purposes. Billing Codes Specimen Charges Stain Charges 47591 1 1:45 PM CDT DERMATOPATHOLOGY LABORATORY Embedded Images 1:45 PM CDT DERMATOPATHOLOGY LABORATORY Pathology/Cytolog y TISSUE SPECIMEN FROM SKIN / Unknown 02/25/2021 02/27/2021 10:10 AM CDT Jerry Cohn MD LAB - PATHOLOGY/CYTOLOGY ORDERAB LES Final Result DERMATOPATHOLOGY LABORATORY [facility] - Department of Dermatology [facility] Medicine [address] [place] [address], [address] Floor [address] [phone] documented in this encounter Visit Diagnoses Not on filedocumented in this encounter Care Teams Sales Floor Manager Relationship Specialty Start Date End Date Jonas Mullins MD [address] [place] [address] PCP - General 06/27/18 documented as of this encounter
--- OUTSIDE RECORDS SUMMARY | 2025-03-13 07:55 | XMS_ITS | Encounter Summary ---
Author Organization [facility] Address [address] [facility] [place] [address] Care Team Providers Care Motor Expert Name Role Phone Jonas Mullins MD Primary Care Provider [phone] Reason for Visit * Reason Onset Date Comments Appointment 06/30/2018 Encounter Details Date Type Department Care Team (Late Contact Info) Description 06/30/2018 Telephone [facility] [address] [place], [place] [id number] Ricarda Queen MD [address] [facility] [address] [place] [address] Appointment Social History Tobacco Use Types Packs/Day Years Used Date Smoking Tobacco: Never Assessed Sex and Gender Information Value Date Recorded Sex Assigned at Not on file Legal Sex Male 6:14 AM SLEEP LAB TECHNOLOGIST Gender Identity Not on file Sexual Orientation Not on file documented as of this encounter Miscellaneous Notes * Telephone Encounter - Gisselle Macario - 06/30/2018 9:34 AM CST Mr. Elam called this morning stated that he has left messages for someone to call him back from [facility]. Please call pt back at [phone]. Thanks Gisselle Ramsey P LAB TECHNOLOGIST documented in this encounter Plan of Treatment Upcoming Encounters Date Type Department Care Team (Late Contact Info) Description 05/17/2025 10:00 AM SLEEP LAB TECHNOLOGIST Office Visit [facility] Orthopedics [address] [place] [address], [address] [place] [address] Albertina Elizondo, PA-C [address] [place] [address] documented as of this encounter Visit Diagnoses Not on filedocumented in this encounter Care Teams Motor Expert Relationship Specialty Start Date End Date Jonas Mullins MD [address] [place] [address] PCP - General 06/27/18 documented as of this encounter
--- OUTSIDE RECORDS SUMMARY | 2025-03-13 07:55 | XMS_ITS | Encounter Summary ---
Author Organization [facility] Address [address] [place] [address] Care Team Providers Care Therapeutic Recreation Specialist Name Role Phone Jonas Mullins MD Primary Care Provider [phone] Encounter Details Date Type Department Care Team (Late Contact Info) Description 12/31/2022 Lab Requisition [facility] - DermPath Lab [address] [place] [address] Jerry Cohn MD [address] [place] [address] Social History Tobacco Use Types Packs/Day Years Used Date Smoking Tobacco: Never Assessed Sex and Gender Information Value Date Recorded Sex Assigned at Not on file Legal Sex Male 6:14 AM HIGH SCHOOL HISTORY TEACHER Gender Identity Not on file Sexual Orientation Not on file documented as of this encounter Plan of Treatment Upcoming Encounters Date Type Department Care Team (Late Contact Info) Description 05/17/2025 10:00 AM HIGH SCHOOL HISTORY TEACHER Office Visit [facility] Orthopedics [address] [facility], [address] [address] Albertina Elizondo PA-C [address] [phone] documented as of this encounter Procedures Procedure Name Priority Date/Time Associated Diagnosis Comments DERMATOPATHOLOGY Routine 12/31/2022 12:0 0 AM CDT documented in this encounter Results * DERMATOPATHOLOGY (12/31/2022 12:00 AM CDT) Case Report Dermatopathology Report Case: [id number] Authorizing Provider: Jerry Cohn MD Collected: 12/31/2022 12:00 AM Ordering Location: [facility] DermPath Lab Received: 12/31/2022 05:07 [...] determined by the Dermatopathology Laboratory at [facility], directed by Dr. Aleksandr Wolf. These tests need not be, and therefore are not, approved by the [place] Food and Drug Administration. The tests are used for clinical purposes. Billing Codes Specimen Charges Stain Charges 50841 56803 1 1 3 4:55 PM CDT DERMATOPATHOLOGY LABORATORY Embedded Images 3 4:55 PM CDT DERMATOPATHOLOGY LABORATORY Pathology/Cytology TISSUE SPECIMEN FROM SKIN / Unknown 12/31/2022 12/31/2022 5:07 PM CDT Miscellaneous samples (specimen) TISSUE SPECIMEN FROM SKIN / Unknown 12/31/2022 12/31/2022 5:07 PM CDT Jerry Cohn MD LAB - PATHOLOGY/CYTOLOGY ORDERAB LES Final Result DERMATOPATHOLOGY LABORATORY [facility] Department of Dermatology [facility] Medicine [address] [place] [address], [address] [phone] documented in this encounter Visit Diagnoses Not on filedocumented in this encounter Care Teams Therapeutic Recreation Specialist Relationship Specialty Start Date End Date Jonas Mullins MD [address] [place] [address] PCP - General 06/27/18 documented as of this encounter
--- OUTSIDE RECORDS SUMMARY | 2025-03-13 07:55 | XMS_ITS | Encounter Summary ---
Author Organization [facility] Healthcare Address [address] [place] [address] Care Team Providers Care Reject Opener Name Role Phone Jonas Mullins MD Primary Care Provider [phone] Kindra Nascimento OD Unavailable [phone] Encounter Details Date Type Department Care Team (Late st Contact Info) Description 05/12/2022 Telephone [facility] Center at the [place] [facility] [address] [facility] Advanced Medicine [address] [place] [address] Keith Naik MD [address] [place] [address] Social History Tobacco Use Types Packs/Day Years [...] on file Legal Sex Male 12:58 AM ORDER SELECTOR Gender Identity Not on file Sexual Orientation Not on file documented as of this encounter Plan of Treatment Not on file documented as of this encounter Goals Goal Patient Goal Type Associated Problems Recent Progress Patient-Stated? Author CCM Chronic Pain Care Plan Chronic Care Management On track(11/18/ 2024 2:49 PM ORDER SELECTOR) Marianela Molina, RN Note: Problem: Chronic Pain Goals: 1. Minimize further functional decline 2. Maximize quality of life 3. Control pain Strategies: - Activity/exercise program recommendation - Conservative stepwise pain medicine strategy with multi-disciplinary approach - Recommend healthy lifestyle strategies and compensatory methods as needed documented as of this encounter Visit Diagnoses Not on filedocumented in this encounter Care Teams Reject Opener Relationship Specialty Start Date End Date Jonas Mullins MD PCP - General 02/17/11 Kindra Nascimento OD Referring Physician Optometry 03/02/22 documented as of this encounter
--- OUTSIDE RECORDS SUMMARY | 2025-03-13 07:55 | XMS_ITS | Clinical Summary ---
Author Organization [facility] [employer] Address [address] [place] [address] Care Team Providers Care Tailor Men'S Ready To Wear Name Role Phone Jonas Mullins MD Primary Care Provider [phone] Source Comments [facility],non-owned Affiliates and Associated Physician Practices is amultiple site organization consisting of ambulatory clinics and hospital sitesin [place], [place], [place] and [place]. This disclosure is being madepursuant to the Care Everywhere program and may not contain all information available regarding this patient. Last updated 18.[facility] [employer] Allergies Active Allergy Reactions Criticality Noted Date [...] times daily Active celecoxib (CeleBREX) 200 MG capsuleIndications: Primary osteoarthritis of both knees Take 1 (one) capsule by mouth once daily 90 capsule 3 5 Active Hospital, Clinic, or Other Facility Administered Medication [...] Description 03/05/2025 9:00 AM CDT Office Visit [facility] Orthopedics [address] [place] [address], [address] [address] Godwin Dahl, REWRITER-LENS GAUGER Primary osteoarthritis of right knee (Primary Dx) 02/26/2025 9:00 AM CDT Office Visit [facility] [address] [place] [phone] Godwin Dahl, REWRITER-LENS GAUGER Primary osteoarthritis of left knee (Primary Dx) 02/07/2025 Refill [facility] [address] [place] [address], [address] [address] Trevor Moncada MD MEDICATION REFILL 01/15/[address] [facility] [address] [place] [address], [address] [address] Trevor Moncada MD Medication Issue 01/15/[address] [facility] [address] [place] [address], [address] [address] Trevor Moncada MD Medication Issue 01/10/2025 Refill [facility] [address] [place] [address], [address] [address] Trevor Moncada MD Refill Request from Last 3 Months Social History Tobacco Use Types Packs/Day Years Used Date Smoking Tobacco: Never Smokeless Tobacco: Never Tobacco Cessation:Counseling Given: Not Answered Sex and Gender Information Value Date Recorded Sex Assigned at Not on file Legal Sex Male 6:14 AM HAND ALMOND BLANCHER Gender Identity Not on file Sexual Orientation [...] st Contact Info) Description 05/17/2025 10:00 AM HAND ALMOND BLANCHER Office Visit [facility] Health Orthopedics [address] [facility], [address] [address] Albertina Elizondo PA-C [address] [facility] [address] [place] [phone] Health Maintenance Due Date Last Done [...] to complete this topic Insurance MEDICARE AETNA [facility] MANAGED MEDICARE ADV [facility] MANAGED MEDICARE ADV [facility] MANAGED MEDICARE ADV Care Teams Tailor Men'S Ready To Wear Relationship Specialty Start Date End Date Jonas Mullins MD [address] [place] [phone] PCP - General 06/27/18
--- OUTSIDE RECORDS SUMMARY | 2025-03-13 07:55 | XMS_ITS | Clinical Summary ---
Author Organization [facility] Address [address] [place] [address] Care Team Providers Care Net Developer Contract Name Role Phone Unavailable Primary Care Provider [...]
--- OUTSIDE RECORDS SUMMARY | 2025-03-13 07:55 | XMS_ITS | Encounter Summary ---
Author Organization [facility] Healthcare Address [address] [place] [address] Care Team Providers Care Claims Supervisor Name Role Phone Jonas Mullins MD Primary Care Provider [phone] Kindra Nascimento OD Unavailable [phone] Reason for Visit * Reason Onset Date Comments MED REFILLS 02/11/2021 Encounter Details Date Type Department Care Team (Late st Contact Info) Description 02/11/2021 Telephone [facility] [address] [facility] Advanced Medicine [address] [place], [place] [id number] Keith Naik MD [address] [place] [address] MED REFILLS Social History Tobacco Use Types Packs/Day Years Used Date Smoking Tobacco: Never Smokeless Tobacco: Never Alcohol Use Standard Drinks/Week Comments Not Currently 0 (1 standard drink = 0.6 oz pur e alcohol) denies Sex and Gender Information Value Date Recorded Sex Assigned at Not on file Legal Sex Male 12:58 AM CELL CLEANER Gender Identity Not on file Sexual [...] Chronic Care Management On track(2023 2:49 PM CELL CLEANER) Marianela Molina, RN Note: Problem: Chronic Pain [...] documented as of this encounter Care Teams Claims Supervisor Relationship Specialty Start Date End Date Jonas Mullins MD PCP - General 02/17/11 Kindra Nascimento OD Referring Physician Optometry 03/02/22 documented as of this encounter
--- OUTSIDE RECORDS SUMMARY | 2025-03-13 07:55 | XMS_ITS | Clinical Summary ---
Author Organization [facility] Address [address] [place] [address] Phone Care Team Providers Care Release And Technical Records Clerk Name Role Phone Jonas Mullins MD Primary [...] Tdap) 03/09/2030 Medical Devices Implanted Type Area Professional Housing Consultant Device Identifier Shelf Expiration Date Model / Serial / Lot Rogelio Rogelio Leg Wire Wire Hip Insurance MEDICARE PART A AND B RX [employer] Commercial RX [employer] (INTERNAL) [facility] Advance Directives For more information, please contact: [phone] * Full Code (Latest Code Status on File) Date Activated Date Inactivated Comments 03/10/2020 12:35 AM 03/13/2020 3:42 PM Care Teams Release And Technical Records Clerk Relationship Specialty Start Date End Date Jonas Mullins MD [address] [place] [address] PCP - General Internal Medicine 03/09/20
--- OUTSIDE RECORDS SUMMARY | 2025-03-13 07:55 | XMS_ITS ---
Author Organization [facility] 2 Address [address] [facility] [place] [address] Care Team Providers Care Framing Manager Name Role Phone Jonas Mullins MD Primary Care Provider [phone] DemetrKindra black OD Unavailable [phone] Active Problems Problem Noted Date Diagnosed Date Superficial punctate keratitis of both eyes 07/09 Assessment & Plan (07/31/2024 5:21 PM ADJUDICATION SPECIALIST): Mild inferior PEE. Reports FBS onset since [...] today: Assessment & Plan (07/31/2024 5:20 PM ADJUDICATION SPECIALIST): Images from the original note were not included. Has an elevated lesion of the inferior palpebral conj measuring 2.5mmx2.5mm. 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 Picture taken below for reference. Recommend repeat anterior exam in 2-3 months to monitor for stability. Nephrolithiasis 06/03/2023 Meibomian gland dysfunction (MGD) of upper and lower lids of both eyes 06/01/2023 Assessment & Plan (06/01/2023 10:46 AM ADJUDICATION SPECIALIST): Significant MGD and blepharitis. Large chalazia of [...] 05/15/2020 Assessment & Plan (06/01/2023 10:46 AM ADJUDICATION SPECIALIST): Doing well, follow. Assessment & Plan (10/28/2021 11:36 AM CDT): Clear and centered both eyes (OU); great outcome Assessment & Plan (05/15/2020 1:25 PM ADJUDICATION SPECIALIST): Centered and stable lenses, clear capsules Monitor Chalazion of left lower eyelid 05/15/2020 Assessment & Plan (07/31/2024 5:14 PM ADJUDICATION SPECIALIST): Has a stable chalazion on HUNTER Assessment & Plan (07/09/2023 12:35 PM ADJUDICATION SPECIALIST): Chalazia LLL with significant improvement with warm compresses and maxitrol. IOP 05/19. - Continue warm compresses PRN - Will give additional tube of maxitrol as needed. If requiring regular use then patient will call for appointment F/U 1 year with DFE Assessment & Plan (06/01/2023 10:48 AM ADJUDICATION SPECIALIST): Patient also mentions some type of internal twitching/fasciculation of LLL. Patient noticed during inferior indirect exam, but there was no movement of the globe during this episode. 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 Assessment & Plan (05/15/2020 1:27 PM ADJUDICATION SPECIALIST): Internal hordeolum left eye (OS), warm compresses Myalgia 01/02/2020 Neck pain 01/02/2020 Age-related nuclear cataract of right eye s/p KPE/PCIOL OD 08/08/19 07/13/2019 Overview (07/13/2019): Added automatically from request for surgery [id number] Assessment & Plan (08/16/2019 9:07 AM CDT): [...] finish Assessment & Plan (08/09/2019 7:27 AM ADJUDICATION SPECIALIST): POD1 status post (s/p) KPE/ PCIOL OD Doing well Reviewed activity instructions and warning signs Start PF and ofloxacin QID RTC 1 week s/p CE/PCIOL OS 05/26/19 05/27/2019 Assessment & Plan (07/03/2019 10:28 AM ADJUDICATION SPECIALIST): 1 mth POV s/p CE/PCIOL OS 05/26/19 [...] finish Assessment & Plan (06/01/2019 8:10 PM ADJUDICATION SPECIALIST): Post-op week sp 1 KPE/IOL OS Healing well Stop ofloxacin Taper PF 1gtt/week RTC 3 weeks for post-op month 1 visit Assessment & Plan (05/27/2019 8:13 AM ADJUDICATION SPECIALIST): POD1 CE/PCIOL OS - Pt is doing [...] (04/12/2019): Added automatically from request for surgery [id number] Age-related nuclear cataract of both eyes 11/23/2017 [...]
--- OUTSIDE RECORDS SUMMARY | 2025-03-13 07:55 | XMS_ITS | Clinical Summary ---
Author Organization [facility] Medical [facility] 2 Address [address] [facility] [place] [address] Care Team Providers Care Conditioning Room Worker Name Role Phone Jonas Mullins MD Primary Care Provider [phone] DemKindra renteria OD Unavailable [phone] Allergies Active Allergy Reactions Criticality Noted Date [...] (NIZORAL) 2 % cream 0 Active vitamin W83-uzycy acid 0.5-1 mg tablet Take by mouth Active alendronate (FOSAMAX) 70 mg tablet TAKE 1 TABLET BY MOUTH WEEKLY 3 Active triamcinolone (KENALOG) 0.1 % cream 3 Active rivaroxaban (XARELTO) 10 mg tablet Take 1 tablet (10 mg total) by mouth daily Reported on 05/14/2023 Takes prn 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 Reports FBS onset [...] today: Assessment & Plan (07/31/2024 5:20 PM SENIOR ENVIRONMENTAL ENGINEER): Images from the original note were not included. Has an elevated lesion of the inferior palpebral conj measuring 2.5mmx2.5mm. 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 Picture taken below for reference. Recommend repeat anterior exam in 2-3 months to monitor for stability. Nephrolithiasis 06/03/2023 Meibomian gland dysfunction (MGD) of upper and lower lids of both eyes 06/01/2023 Assessment & Plan (06/01/2023 10:46 AM SENIOR ENVIRONMENTAL ENGINEER): Significant MGD and blepharitis. Large chalazia [...] 05/15/2020 Assessment & Plan (06/01/2023 10:46 AM SENIOR ENVIRONMENTAL ENGINEER): Doing well, follow. Assessment & Plan (10/28/2021 11:36 AM CDT): Clear and centered both eyes (OU); great outcome Assessment & Plan (05/15/2020 1:25 PM SENIOR ENVIRONMENTAL ENGINEER): Centered and stable lenses, clear capsules Monitor Chalazion of left lower eyelid 05/15/2020 Assessment & Plan (07/31/2024 5:14 PM SENIOR ENVIRONMENTAL ENGINEER): Has a stable chalazion on HUNTER Assessment & Plan (07/09/2023 12:35 PM SENIOR ENVIRONMENTAL ENGINEER): Chalazia LLL with significant improvement with warm compresses and maxitrol. IOP /. - Continue warm compresses PRN - Will give additional tube of maxitrol as needed. If requiring regular use then patient will call for appointment F/U 1 year with DFE Assessment & Plan (06/01/2023 10:48 AM SENIOR ENVIRONMENTAL ENGINEER): Patient also mentions some type of internal twitching/fasciculation of LLL. Patient noticed during inferior indirect exam, but there was no movement of the globe during this episode. 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 Assessment & Plan (05/15/2020 1:27 PM SENIOR ENVIRONMENTAL ENGINEER): Internal hordeolum left eye (OS), warm compresses Myalgia 01/02/2020 Neck pain 01/02/2020 Age-related nuclear cataract of right eye s/p KPE/PCIOL OD 08/08/19 07/13/2019 Overview (07/13/2019): Added automatically from request for surgery [id number] Assessment & Plan (08/16/2019 9:07 AM CDT): [...] finish Assessment & Plan (08/09/2019 7:27 AM SENIOR ENVIRONMENTAL ENGINEER): POD1 status post (s/p) KPE/ PCIOL OD Doing well Reviewed activity instructions and warning signs Start PF and ofloxacin QID RTC 1 week s/p CE/PCIOL OS 05/26/19 05/27/2019 Assessment & Plan (07/03/2019 10:28 AM SENIOR ENVIRONMENTAL ENGINEER): 1 mth POV s/p CE/PCIOL OS [...] finish Assessment & Plan (06/01/2019 8:10 PM SENIOR ENVIRONMENTAL ENGINEER): Post-op week sp 1 KPE/IOL OS Healing well Stop ofloxacin Taper PF 1gtt/week RTC 3 weeks for post-op month 1 visit Assessment & Plan (05/27/2019 8:13 AM SENIOR ENVIRONMENTAL ENGINEER): POD1 CE/PCIOL OS - Pt is [...] (04/12/2019): Added automatically from request for surgery [id number] Age-related nuclear cataract of both eyes 11/23/2017 [...] - 12/25/2024 11:59 PM CDT Hospital Encounter [facility] the [facility] [address] [facility] [address] [address] [place] [address] Keith Naik MD Sacroiliitis (Primary Dx); Other myositis, unspecified site; Myalgia; Chronic right shoulder pain Discharge Disposition: Discharge to home or self care 12/25/2024 Orders Only [facility] [address] [place] [address] Advanced Medicine [address] [place] [address] Keith Naik MD Chronic right shoulder pain (Primary Dx) 12/14/2024 2:15 PM CDT Office Visit [facility] [address] [place] [address] Advanced Medicine 5th [place] [address] [place] [address] Tristen Orta MD Nephrolithiasis (Primary Dx); Primary hypertension; Other chronic pain 12/13/2024 Telephone [facility] [address] [facility] [address] [place] [address] Keith Naik MD PMC Preprocedure 12/12/2024 8:10 AM CDT - 12/12/2024 11:59 PM CDT Hospital Encounter [facility] [address] [place] [address] Nephrolithiasis Discharge Disposition: Discharge to home or [...] on file Legal Sex Male 12:58 AM SENIOR ENVIRONMENTAL ENGINEER Gender Identity Not on file Sexual Orientation [...] Chronic Care Management On track(2023 2:49 PM SENIOR ENVIRONMENTAL ENGINEER) Marianela Molina, RN Note: Problem: Chronic Pain Goals: 1. Minimize further functional decline 2. Maximize quality of life 3. Control pain Strategies: - Activity/exercise program recommendation - Conservative stepwise pain medicine strategy with multi-disciplinary approach - Recommend healthy lifestyle strategies and compensatory methods as needed Medical Devices Implanted Type Area Associate Designer Device Identifier Shelf Expiration Date Model / Serial / Lot [employer] Sn60wf.175 Acrysof Iq Natural Stableforce Acrysert 6mm 13mm 1 Piece Foldable - [id number] - [id number] Implanted:Qty: 1 on 05/26/2019 by Rebekah Feng MD at [facility] Lens Left: Eye [employer] [id number] 09/05/2023 SN60WF.17 5 / [id number] / [employer] Sn60wf.180 Acrysof Iq Natural Stableforce Acrysert 6mm 13mm 1 Piece Foldable - [id number] - [id number] Implanted:Qty: 1 on 08/08/2019 by Rebekah Feng MD at [facility] Medicine Right: Eye [employer] [id number] 12/05/2023 SN60WF.18 0 / [id number] / Procedures Procedure Name Priority Date/Time Associated Diagnosis Comments PAIN MGMT IMAGING SI JOINT LEFT Schedule Routine, Read Routine (OP Routine) 12/25/2024 9:02 AM CDT Sacroiliitis US KIDNEY COMPLETE Schedule Routine, Read Routine (OP Routine) 12/12/2024 8:46 AM CDT Nephrolithiasis COLONOSCOPY REPORT 01/21/2016 from Last 3 Months or Most Recently Relevant to Health Maintenance Results * Imaging SI Joint Injection Left ([id number]) (12/25/2024 9:02 AM CDT) Narrative [facility] - [...] by: Alex May M.D. Tristen Orta MD [facility] US PROCEDURES Final Result * COLONOSCOPY REPORT (01/21/2016) Anatomical Region Laterality Modality Other Narrative 01/21/2016 Ordered by an unspecified provider. Historical Provider GI PROCEDURE ORDERABLES F inal Result from Last 3 Months or Most Recently Relevant to Health Maintenance Insurance [facility] MEDICARE ADVANTAGE MEDICARE [facility] A[employer] SIGNATURE COMMERCIAL GENERIC Member Subscriber Plan / Payer (Ef fective 2019-Present) Name:Kathleen Ramkirill Torres Relation to Subscriber:Self Name:Kathleen Ramkirill Torres Payer ID:[id number] Type:COMMERCIAL Address: [address] [facility] MEDICARE ADVANTAGE [facility] MEDICARE ADVANTAGE Member Subscriber Plan / Payer (Ef fective 2021-Present) Name:MarialuisaKathleen hernandezkirill Torres Relation to Subscriber:Self Name:Carmen Ram Payer ID:[id number] (NAIC) Type:UHC MEDICARE Address: [place] [id number] UHC MEDICARE ADVANTAGE Care Teams Conditioning Room Worker Relationship Specialty Start Date End Date Jonas Mullins MD PCP - General 02/17/11 Kindra Nascimento OD Referring Physician Optometry 03/02/22
[2025-03-13 08:09] LABS: Hematocrit 43.5 % (42.0-52.0); Hemoglobin 14.3 g/dL (14.0-18.0); Immature Granulocyte Percent A 0.7 % (0-0.5); Lymphocytes Absolute Auto 1.28 K/mm3 (0.9-3.2); Mean Corpuscular HGB Conc 32.9 g/dl (32-36); Mean Corpuscular Hemoglobin 30.6 pg (26-34); Mean Corpuscular Volume 93.1 fl (80-100); Nucleated Red Blood Cells Absolute Auto 0.000 K/mm3 (0.0-0.012); Nucleated Red Blood Cells Perc 0.0 % (0.0-0.2); Platelet Count Result 158 k/mm3 (150-375); Red Blood Count 4.67 M/mm3 (4.6-6.20); White Blood Count 5.6 K/mm3 (4.5-10.0)
[2025-03-13 08:39] LABS: CRP < 0.5 mg/dL (<1.0)
== END 2025-03-13 07:50 | disposition home or self-care (01) ==
LOC: ANHLAB 07:50
PROVIDERS: PCP Internal Medicine; Visit Provider Internal Medicine
DX: R93.89 Abnormal findings on diagnostic imaging of other specified body structures (principal); Z79.899 Other long term (current) drug therapy; M25.552 Pain in left hip
CPT/HCPCS: 36415; 85025; 85652; 86140

== ENCOUNTER 2025-03-19 09:56 | Outpatient (CLI) | payer MEDICARE, SELFPAY ==
--- NOTE | ~2025-03-19 | CT_ITS ---
EXAMINATION: CT hip LT w con DATE: 03/19/2025 10:27 INDICATION: Left hip pain. TECHNIQUE: Computed tomography (CT) of the left hip was performed with 100 mL Omnipaque 350 intravenous contrast. Automated exposure control and iterative reconstruction technique were employed. The dose-length product was 626.12 mGy-cm. COMPARISON: CT 01/24/2023, 03/07/25 FINDINGS: Alignment is normal. There is an old healed fracture of proximal left femur with fixation with multiple circles of spine wire. 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 There is moderate left hip osteoarthritis. There is a loose body in left hip joint. There is mild left trochanteric bursitis. 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 There is severe lumbar spondylosis. IMPRESSION: 1. Moderate left hip osteoarthritis with loose body. Reviewed, dictated and finalized at location E.
[2025-03-19 10:26] LABS: Estimated Glomerular Filt Rate > 60
--- OUTSIDE RECORDS SUMMARY | 2025-03-19 10:46 | XMS_ITS ---
Author Organization [facility] 2 Address [address] [place] [address] Care Team Providers Care Clinical Appeals Reviewer Name Role Phone Jonas Mullins MD Primary Care Provider [phone] DemetrKindra black OD Unavailable [phone] Active Problems Problem Noted Date Diagnosed Date Superficial punctate keratitis of both eyes 07/09 Assessment & Plan (07/31/2024 5:21 PM ELASTIC YARN TWISTER): Mild inferior PEE. Reports FBS onset since [...] today: Assessment & Plan (07/31/2024 5:20 PM ELASTIC YARN TWISTER): Images from the original note were not included. Has an elevated lesion of the inferior palpebral conj measuring 2.5mmx2.5mm. 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 Picture taken below for reference. Recommend repeat anterior exam in 2-3 months to monitor for stability. Nephrolithiasis 06/03/2023 Meibomian gland dysfunction (MGD) of upper and lower lids of both eyes 06/01/2023 Assessment & Plan (06/01/2023 10:46 AM ELASTIC YARN TWISTER): Significant MGD and blepharitis. Large chalazia of [...] 05/15/2020 Assessment & Plan (06/01/2023 10:46 AM ELASTIC YARN TWISTER): Doing well, follow. Assessment & Plan (10/28/2021 11:36 AM CDT): Clear and centered both eyes (OU); great outcome Assessment & Plan (05/15/2020 1:25 PM ELASTIC YARN TWISTER): Centered and stable lenses, clear capsules Monitor Chalazion of left lower eyelid 05/15/2020 Assessment & Plan (07/31/2024 5:14 PM ELASTIC YARN TWISTER): Has a stable chalazion on HUNTER Assessment & Plan (07/09/2023 12:35 PM ELASTIC YARN TWISTER): Chalazia LLL with significant improvement with warm compresses and maxitrol. IOP 05/19. - Continue warm compresses PRN - Will give additional tube of maxitrol as needed. If requiring regular use then patient will call for appointment F/U 1 year with DFE Assessment & Plan (06/01/2023 10:48 AM ELASTIC YARN TWISTER): Patient also mentions some type of internal twitching/fasciculation of LLL. Patient noticed during inferior indirect exam, but there was no movement of the globe during this episode. 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 Assessment & Plan (05/15/2020 1:27 PM ELASTIC YARN TWISTER): Internal hordeolum left eye (OS), warm compresses Myalgia 01/02/2020 Neck pain 01/02/2020 Age-related nuclear cataract of right eye s/p KPE/PCIOL OD 08/08/19 07/13/2019 Overview (07/13/2019): Added automatically from request for surgery [id number] Assessment & Plan (08/16/2019 9:07 AM CDT): [...] finish Assessment & Plan (08/09/2019 7:27 AM ELASTIC YARN TWISTER): POD1 status post (s/p) KPE/ PCIOL OD Doing well Reviewed activity instructions and warning signs Start PF and ofloxacin QID RTC 1 week s/p CE/PCIOL OS 05/26/19 05/27/2019 Assessment & Plan (07/03/2019 10:28 AM ELASTIC YARN TWISTER): 1 mth POV s/p CE/PCIOL OS 05/26/19 [...] finish Assessment & Plan (06/01/2019 8:10 PM ELASTIC YARN TWISTER): Post-op week sp 1 KPE/IOL OS Healing well Stop ofloxacin Taper PF 1gtt/week RTC 3 weeks for post-op month 1 visit Assessment & Plan (05/27/2019 8:13 AM ELASTIC YARN TWISTER): POD1 CE/PCIOL OS - Pt is doing [...] (04/12/2019): Added automatically from request for surgery [id number] Age-related nuclear cataract of both eyes 11/23/2017 [...]
--- OUTSIDE RECORDS SUMMARY | 2025-03-19 10:46 | XMS_ITS | Clinical Summary ---
Author Organization [facility] Medical [facility] 2 Address [address] [facility] [place] [address] Care Team Providers Care Ups Driver Name Role Phone Jonas Mullins MD Primary Care Provider [phone] DemKindra renteria OD Unavailable [phone] Allergies Active Allergy Reactions Criticality Noted Date [...] (NIZORAL) 2 % cream 0 Active vitamin Z94-uiuub acid 0.5-1 mg tablet Take by mouth Active alendronate (FOSAMAX) 70 mg tablet TAKE 1 TABLET BY MOUTH WEEKLY 3 Active triamcinolone (KENALOG) 0.1 % cream 3 Active rivaroxaban (XARELTO) 10 mg tablet Take 1 tablet (10 mg total) by mouth daily Reported on 05/14/2023 Takes prn if having pAFib bouts Active glucos sul 2ZGn-yiq-aabrl-C-M n (Glucosamine Chondroitin) 550-30-1 mg capsule Take [...] 80-400-40 mg capsule mg, 0 9 Active gxyclfqh-lajgux-il c7-K5-N-fer 750-625-1,000 mg-mg-unit tablet mg, tablet(s), 0 9 [...] 07/09 Assessment & Plan (07/31/2024 5:21 PM SWEATBAND DRUMMER): Mild inferior PEE. Reports FBS onset since [...] today: Assessment & Plan (07/31/2024 5:20 PM SWEATBAND DRUMMER): Images from the original note were not included. Has an elevated lesion of the inferior palpebral conj measuring 2.5mmx2.5mm. 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 Picture taken below for reference. Recommend repeat anterior exam in 2-3 months to monitor for stability. Nephrolithiasis 06/03/2023 Meibomian gland dysfunction (MGD) of upper and lower lids of both eyes 06/01/2023 Assessment & Plan (06/01/2023 10:46 AM SWEATBAND DRUMMER): Significant MGD and blepharitis. Large chalazia of [...] 05/15/2020 Assessment & Plan (06/01/2023 10:46 AM SWEATBAND DRUMMER): Doing well, follow. Assessment & Plan (10/28/2021 11:36 AM CDT): Clear and centered both eyes (OU); great outcome Assessment & Plan (05/15/2020 1:25 PM SWEATBAND DRUMMER): Centered and stable lenses, clear capsules Monitor Chalazion of left lower eyelid 05/15/2020 Assessment & Plan (07/31/2024 5:14 PM SWEATBAND DRUMMER): Has a stable chalazion on HUNTER Assessment & Plan (07/09/2023 12:35 PM SWEATBAND DRUMMER): Chalazia LLL with significant improvement with warm compresses and maxitrol. IOP /. - Continue warm compresses PRN - Will give additional tube of maxitrol as needed. If requiring regular use then patient will call for appointment F/U 1 year with DFE Assessment & Plan (06/01/2023 10:48 AM SWEATBAND DRUMMER): Patient also mentions some type of internal twitching/fasciculation of LLL. Patient noticed during inferior indirect exam, but there was no movement of the globe during this episode. 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 Assessment & Plan (05/15/2020 1:27 PM SWEATBAND DRUMMER): Internal hordeolum left eye (OS), warm compresses Myalgia 01/02/2020 Neck pain 01/02/2020 Age-related nuclear cataract of right eye s/p KPE/PCIOL OD 08/08/19 07/13/2019 Overview (07/13/2019): Added automatically from request for surgery [id number] Assessment & Plan (08/16/2019 9:07 AM CDT): [...] finish Assessment & Plan (08/09/2019 7:27 AM SWEATBAND DRUMMER): POD1 status post (s/p) KPE/ PCIOL OD Doing well Reviewed activity instructions and warning signs Start PF and ofloxacin QID RTC 1 week s/p CE/PCIOL OS 05/26/19 05/27/2019 Assessment & Plan (07/03/2019 10:28 AM SWEATBAND DRUMMER): 1 mth POV s/p CE/PCIOL OS 05/26/19 [...] finish Assessment & Plan (06/01/2019 8:10 PM SWEATBAND DRUMMER): Post-op week sp 1 KPE/IOL OS Healing well Stop ofloxacin Taper PF 1gtt/week RTC 3 weeks for post-op month 1 visit Assessment & Plan (05/27/2019 8:13 AM SWEATBAND DRUMMER): POD1 CE/PCIOL OS - Pt is doing [...] (04/12/2019): Added automatically from request for surgery [id number] Age-related nuclear cataract of both eyes 11/23/2017 [...] - 12/25/2024 11:59 PM CDT Hospital Encounter [facility] at the [address] [place] [address] Keith Naik MD Sacroiliitis (Primary Dx); Other myositis, unspecified site; Myalgia; Chronic right shoulder pain Discharge Disposition: Discharge to home or self care 12/25/2024 Orders Only [facility] at the [address] [place] [address] Keith Naik MD Chronic right shoulder pain (Primary Dx) from Last 3 Months Immunizations Immunization Administration [...] transient cerebra l ischemia - (Added by SAMUEL Conv) Personal history of other di seases of the circulatory system History of hypertension - (A dded by SAMUEL Conv) Atrial fibrillation (HCC) Atrial fibrillation - (Added by SAMUEL Conv) Awareness under anesthesia Rib fractures 10 [...] on file Legal Sex Male 12:58 AM SWEATBAND DRUMMER Gender Identity Not on file Sexual Orientation [...] Chronic Care Management On track(2023 2:49 PM SWEATBAND DRUMMER) Marianela Molina, RN Note: Problem: Chronic Pain Goals: 1. Minimize further functional decline 2. Maximize quality of life 3. Control pain Strategies: - Activity/exercise program recommendation - Conservative stepwise pain medicine strategy with multi-disciplinary approach - Recommend healthy lifestyle strategies and compensatory methods as needed Medical Devices Implanted Type Area Petrographer Device Identifier Shelf Expiration Date Model / Serial / Lot [employer] Sn60wf.175 Acrysof Iq Natural Stableforce Acrysert 6mm 13mm 1 Piece Foldable - [id number] - [id number] Implanted:Qty: 1 on 05/26/2019 by Rebekah Feng MD at [facility] Lens Left: Eye [employer] [id number] 09/05/2023 SN60WF.17 5 / [id number] / [employer] Sn60wf.180 Acrysof Iq Natural Stableforce Acrysert 6mm 13mm 1 Piece Foldable - [id number] - [id number] Implanted:Qty: 1 on 08/08/2019 by Rebekah Feng MD at [facility] Right: Eye [employer] [id number] 12/05/2023 SN60WF.18 0 / [id number] / Procedures Procedure Name Priority Date/Time Associated Diagnosis Comments PAIN MGMT IMAGING SI JOINT LEFT Schedule Routine, Read Routine (OP Routine) 12/25/2024 9:02 AM CDT Sacroiliitis COLONOSCOPY REPORT 01/21/2016 from Last 3 Months or Most Recently Relevant to Health Maintenance Results * Imaging SI Joint Injection Left ([id number]) (12/25/2024 9:02 AM CDT) Narrative [facility] - 12/25/2024 9:02 AM CDT The images from this study are not interpreted by Radiology. Please refer to the physician's procedure / OR operative note. Keith Naik MD IMG PAIN MGMT PROCEDURES Final Result Performing Organization Address City/State/[facility] Co de Phone Number [facility] * COLONOSCOPY REPORT (01/21/2016) Anatomical Region Laterality Modality Other Narrative 01/21/2016 Ordered by an unspecified provider. Historical Provider GI PROCEDURE ORDERABLES F inal Result from Last 3 Months or Most Recently Relevant to Health Maintenance Insurance [facility] MEDICARE ADVANTAGE [facility] MEDICARE Address: [facility] [address] [place] [address] MEDICARE [facility] COMMERCIAL GENERIC [facility] MEDICARE ADVANTAGE [facility] MEDICARE Address: [address] [place] [phone] MEDICARE ADVANTAGE [facility] Address: [address] [place] [phone] MEDICARE ADVANTAGE [facility] MEDICARE Address: [address] [address] [place] [address] Care Teams Ups Driver Relationship Specialty Start Date End Date Jonas Mullins MD PCP - General 02/17/11 Kindra Nascimento OD Referring Physician Optometry 03/02/22
--- OUTSIDE RECORDS SUMMARY | 2025-03-19 10:46 | XMS_ITS | Encounter Summary ---
Author Organization [facility] Healthcare Address [address] [place] [address] Care Team Providers Care Cloth Folder Machine Name Role Phone Jonas Mullins MD Primary Care Provider [phone] Kindra Nascimento OD Unavailable [phone] Reason for Visit * Reason Onset Date Comments MED REFILLS 02/11/2021 Encounter Details Date Type Department Care Team (Late st Contact Info) Description 02/11/2021 Telephone [facility] [place] [facility] [address] [facility] [address] [place], [place] [address] Keith Naik MD [address] [place] [address] MED REFILLS Social History Tobacco Use Types Packs/Day Years Used Date Smoking Tobacco: Never Smokeless Tobacco: Never Alcohol Use Standard Drinks/Week Comments Not Currently 0 (1 standard drink = 0.6 oz pur e alcohol) denies Sex and Gender Information Value Date Recorded Sex Assigned at Not on file Legal Sex Male 12:58 AM ENGRAVER WOOD Gender Identity Not on file Sexual Orientation [...] Chronic Care Management On track(2023 2:49 PM ENGRAVER WOOD) Marianela Molina, RN Note: Problem: Chronic Pain [...] documented as of this encounter Care Teams Cloth Folder Machine Relationship Specialty Start Date End Date Jonas Mullins MD PCP - General 02/17/11 Kindra Nascimento OD Referring Physician Optometry 03/02/22 documented as of this encounter
--- OUTSIDE RECORDS SUMMARY | 2025-03-19 10:46 | XMS_ITS | Encounter Summary ---
Author Organization [facility] Address [address] [place] [address] Care Team Providers Care Drug Room Operator Name Role Phone Unavailable Primary Care Provider Unavailabl e Encounter Details Date Type Department Care Team (Latest Contact Info) Description 04/12/2018 Abstract [facility] , Isabel Cote [...]
--- OUTSIDE RECORDS SUMMARY | 2025-03-19 10:46 | XMS_ITS | Clinical Summary ---
Author Organization [facility] Address [address] [place] [address] Care Team Providers Care Water Meter Mechanic Name Role Phone Unavailable Primary Care Provider [...] Vaccine (1 - 2023-2 5 season) 2025 Influenza Adult (#1) 2025 Meningococcal B Vaccine Aged Out No l onger eligible based on patient's age to complete this topic Meningococcal Vaccine Aged Out No emmanuelle chon eligible based on patient's age to complete this topic RSV Immunizations Under 20 Months Aged Out No longer eligible based on patient's age to complete this topic
--- OUTSIDE RECORDS SUMMARY | 2025-03-19 10:46 | XMS_ITS | Encounter Summary ---
Author Organization [facility] Healthcare Address [address] [place] [address] Care Team Providers Care Collar Fuser Name Role Phone Jonas Mullins MD Primary Care Provider [phone] Kindra Nascimento OD Unavailable [phone] Reason for Visit * Reason Onset Date Comments Prior Auth 04/19/2019 Gabapentin 600mg NPR Encounter Details Date Type Department Care Team (Late st Contact Info) Description 04/19/2019 Telephone [facility] [place] [facility] [address] [facility] [address] [place] [address] Keith Naik MD [address] [place] [address] Prior Auth (Gabapentin 600mg NPR) Social History Tobacco Use Types Packs/Day Years Used Date Smoking Tobacco: Never Smokeless Tobacco: Never Alcohol Use Standard Drinks/Week Comments Yes 0 (1 standard drink = 0.6 oz pur e alcohol) Sex and Gender Information Value Date Recorded Sex Assigned at Not on file Legal Sex Male 12:58 AM DIET ATTENDANT Gender Identity Not on file Sexual Orientation Not on file documented as of this encounter Plan of Treatment Not on file documented as of this encounter Goals Goal Patient Goal Type Associated Problems Recent Progress Patient-Stated? Author CCM Chronic Pain Care Plan Chronic Care Management On track(2023 2:49 PM DIET ATTENDANT) No Marianela Pineda RN Note: Problem: Chronic [...] documented as of this encounter Care Teams Collar Fuser Relationship Specialty Start Date End Date Jonas Mullins MD PCP - General 02/17/11 Kindra Nascimento OD Referring Physician Optometry 03/02/22 documented as of this encounter
--- OUTSIDE RECORDS SUMMARY | 2025-03-19 10:46 | XMS_ITS | Encounter Summary ---
Author Organization [facility] Healthcare Address [address] [place] [address] Care Team Providers Care Dry Cans Operator Name Role Phone Jonas Mullins MD Primary Care Provider [phone] Kindra Nascimento OD Unavailable [phone] Encounter Details Date Type Department Care Team (Late st Contact Info) Description 05/12/2022 Telephone [facility] [place] [facility] [address] [facility] [address] [place] [address] Keith Naik MD [address] [place] [address] Social History Tobacco Use Types Packs/Day Years [...] on file Legal Sex Male 12:58 AM BLOW OFF WORKER Gender Identity Not on file Sexual Orientation Not on file documented as of this encounter Plan of Treatment Not on file documented as of this encounter Goals Goal Patient Goal Type Associated Problems Recent Progress Patient-Stated? Author CCM Chronic Pain Care Plan Chronic Care Management On track(11/18/ 2024 2:49 PM BLOW OFF WORKER) Marianela Molina, RN Note: Problem: Chronic Pain Goals: 1. Minimize further functional decline 2. Maximize quality of life 3. Control pain Strategies: - Activity/exercise program recommendation - Conservative stepwise pain medicine strategy with multi-disciplinary approach - Recommend healthy lifestyle strategies and compensatory methods as needed documented as of this encounter Visit Diagnoses Not on filedocumented in this encounter Care Teams Dry Cans Operator Relationship Specialty Start Date End Date Jonas Mullins MD PCP - General 02/17/11 Kindra Nascimento OD Referring Physician Optometry 03/02/22 documented as of this encounter
--- OUTSIDE RECORDS SUMMARY | 2025-03-19 10:47 | XMS_ITS | Data Portability ---
Author Organization [facility] Main Office Address [address] [place] [address] Care Team Providers Care Behavioral Health Therapist Name Role Phone MANOJ CHIANG Primary Care [...] knee pain. He has talked to his billboard poster helper, and the patient states they are okay [...] show moderate to severe osteoarthritic changes including [id number] and osteophyte formation throughout. He has plate [...] knee today. He again states that his billboard poster helper is aware and okay with this. We [...] will see him back at that time. Not available 08/27/2024 12:46:58 09/01/2024 09/01/2024 79 year old patient presents today for a cortisone injection into the left knee. He presented last week for an injection into the right knee. He states he had no issues afterwards and monitored his heart rate, which did not have any changes. He states that the pain in the right knee is exponentially better. He denies any new issues or injuries since we saw him last week. Injection into the left knee given without issue. We can see him back as needed for pain. We discussed he can get cortisone injections every 3 months. Not available 09/01/2024 10:25:59 Plan of Treatment Reminders Order Date Submit Date Provider Last Modified By Organization Details Last Modified Time Details Appointments None recorded. Lab None recorded. Referral physical therapist referral - Please contact pt to schedule for sunil knees. thanks 2024 025 [email or web address] [facility], [address] [facility] , [place], [address], 5 10:23:34 Procedures injection/a spiration joint/bursa (PROC) 2024 025 [email or web address] In-Office Order, Internal Use Only DO Not Attach Compendium DO Not Attach Compendium, Do Not Delete/merge, [id number] 5 10:02:09 injection/a spiration joint/bursa (PROC) 2024 025 [email or web address] In-Office Order, Internal Use Only DO Not Attach Compendium DO Not Attach Compendium, Do Not Delete/merge, [address] 10:36:35 Surgeries None recorded. Imaging XR, knee, 3 view 2024 025 [email or web address] [facility] [place], [address], [place], [address], 5 10:23:34 Medication Orders bupivacaine HCl 0.5 % (5 mg/mL) injection solution [address] [facility], [address] [place] [address], [id number], 5 09:35:56 Kenalog 10 mg/mL suspension for injection [address] [facility]27, [address] [place] [address], [id number], 5 09:35:56 bupivacaine HCl 0.5 % (5 mg/mL) injection solution [address] [facility]51, [address] [place] [address], [id number], 5 10:23:34 Kenalog 10 mg/mL suspension for injection [address] [facility]58840, [address] [place] [address], [id number], 5 10:23:34 Patient TargetsNo targets recorded. Patient InstructionsNo instructions [...] observ ation record ed. [email or web address] [facility] [place] [address], [place], [address], 08/27/2024 12:34:51 Result Notes None recorded. Problems Name Problem SNOMED Code Status Onset Date Resolution Date Notes Provider Name and Address Organization Details Recorded Time Pain of bilateral knee joints 9871113299025 04 Active 2024 Eneida Rae , ATC L null, [place] 09:45:51 Bilateral osteoarthri tis of knees 5592374376513 07 Active 2024 Lindsay Peraza, PREET [address] [facility], [address], [place], [address], [place] 12:47:04 Pain of left knee joint 2315105892422 07 Active 2024 SARAH Palma, [place] 09:54:04 Problem Notes None recorded. Procedures Surgical History Date Name Laterality Status Provider Name and Address Organization Details Recorded Time 5 Ortho - Cortisone Injection completed Lindsay Peraza, PREET [address] [facility], [address], [place], [address], [place] 09/01/2024 10:26:11 5 Ortho - Cortisone Injection completed Lindsay Peraza NP [address] [facility], [address], [place], [address], [place] 08/27/2024 12:47:32 Imaging Results None recorded. Procedure Notes None recorded. Medical Equipment None Reported. Allergies Allergen ID Allergen Name Allergen Category Reaction Reaction Severity Criticality Documentation Date Start Date Code Code System Note Provider Name and Address Organization Details Recorded Time 20450 latex environme nt,medica tion Not available Not available Not available 08/25/2024 36592 91 RxNorm Eneida Rae , ATC L null, [place] 09:42:18 Medications Name Sig Start Date Stop [...] Kenalog 10 mg/mL suspension for injection Take 2 mL by injection route. 2024 active [facility]: 0003- 0494- 20 Not Available Not Available [...] Updated DateTime 08/25/2024 193.04 cm 30.4 kg/m2 171772.09 g Eneida Kyra, ATC L [facility] 08/25/2024 09:42:02 Date Recorded Body height Body mass index (BMI) Body weight Pain severity - 0-10 verbal numeric rating [Score] - Reported Provider Name and Address Organization Details Last Updated DateTime 09/01/2024 193.04 cm 30.4 kg/m2 798915.09 g 8 Anudavid Ash [place] [employer] [facility] 09/01/2024 09:53:43 Social History None recorded. Functional Status Question Answer Note LastModified by Organization D etails LastModified Time What is your level of alcohol consumption? None [email or web address] Information not available 08/25/2024 Mental Status None recorded. Family History Relationship [...] Diagnosis SNOMED-CT Code Diagnosis ICD10 Code Diagnosis IMO Codes Diagnosis Note [id number] Gary Cruz MD [facility] [place] [address] [place] [address] 08/25/2024 09:15:05 08/25/2024 10:39:31 Pain of bilateral knee joints 1161998406 67087 M25.561 M25.562 Bilateral osteoarthritis of knees 0564824689 72071 M17.0 [id number] Gary Cruz MD [facility] [place] [address] [facility] [address] [place] [address] 09/01/2024 09:51:58 09/01/2024 10:06:44 Pain of left knee joint 4973591370 37423 M25.562 Health Concerns Section Related Observation LastModified by Organization Detai ls LastModified Time None Recorded Concern Status LastModified by Organization Details LastModified Time None Recorded Advance Directives Directive None Recorded Payers Insurance Date Sequence Insurance Name Policy Number Policy Graves Covered Member ID Graves Member ID Guarantor Name 09/19/2024 1 [facility] (MEDICARE REPLACEMENT/A DVANTAGE - PPO) [id number] Carmen Elam [id number] Carmen Elam
--- OUTSIDE RECORDS SUMMARY | 2025-03-19 10:47 | XMS_ITS | Clinical Summary ---
Author Organization [facility] Address [address] [place] [address] Phone Care Team Providers Care Service Technician Copier [...] Tdap) 03/09/2030 Medical Devices Implanted Type Area Babbitter Device Identifier Shelf Expiration Date Model / Serial / Lot Rogelio Rogelio Leg Wire Wire Hip Insurance MEDICARE PART A AND B RX ENVISIONRX Commercial RX [employer] (INTERNAL) [facility] Plans Advance Directives For more information, please contact: [phone] * Full Code (Latest Code Status on File) Date Activated Date Inactivated Comments 03/10/2020 12:35 AM 03/13/2020 3:42 PM Care Teams Service Technician Copier Relationship Specialty Start Date End Date Jonas Mullins MD [address] [place] [address] PCP - General Internal Medicine 03/09/20
--- OUTSIDE RECORDS SUMMARY | 2025-03-19 10:47 | XMS_ITS | Clinical Summary ---
Author Organization [facility] Address [address] [place] [address] Care Team Providers Care Apartment Manager Name Role Phone Jonas Mullins MD Primary Care Provider [phone] Source Comments [facility],non-owned Affiliates and Associated Physician Practices is amultiple site organization consisting of ambulatory clinics and hospital sitesin [place], [place], [place] and [place]. This disclosure is being madepursuant to the Care Everywhere program and may not contain all information available regarding this patient. Last updated 18.[facility] Allergies Active Allergy Reactions Criticality Noted Date [...] Encounters Date Type Department Care Team Description 03/13/2025 2:01 PM CDT - 03/13/2025 11:59 PM CDT Hospital Encounter [facility] - Outside Imaging Discharge Disposition: Home or Self Care 03/05/2025 9:00 AM CDT Office Visit [facility] [address] [place] [address], [address] [address] Godwin Dahl, SPRAY II PAINTER-FOREIGN CAR MECHANIC Primary osteoarthritis of right knee (Primary Dx) 02/26/2025 9:00 AM CDT Office Visit [address], [address] [address] Godwin Dahl, SPRAY II PAINTER-FOREIGN CAR MECHANIC Primary osteoarthritis of left knee (Primary Dx) 02/07/2025 Refill [facility] [address] [place] [address], [address] [address] Trevor Moncada MD MEDICATION REFILL 01/15/2025 Telephone [facility] [address] [place] [address], [address] [address] Trevor Moncada MD Medication Issue 01/15/2025 Telephone [facility] [address] [place] [address], [address] [address] Trevor Moncada MD Medication Issue 01/10/2025 Refill [facility] [address] [place] [address], [address] [address] Trevor Moncada MD Refill Request from Last 3 Months Social History Tobacco Use Types Packs/Day Years Used Date Smoking Tobacco: Never Smokeless Tobacco: Never Tobacco Cessation:Counseling Given: Not Answered Sex and Gender Information Value Date Recorded Sex Assigned at Not on file Legal Sex Male 6:14 AM CITY JAILER Gender Identity Not on file Sexual Orientation [...] st Contact Info) Description 05/17/2025 10:00 AM CITY JAILER Office Visit [facility] [address] [place] [address] [address] [place] [address] Albertina Elizondo PA-C [address] [facility] [place] [address] Health Maintenance Due Date Last Done Comments HEPATITIS C SCREENING 02/27/1965 DTAP/TDAP/TD VACCINES (1 - Tdap) 1966 PNEUMOCOCCAL VACCINE 50+ (1 of 1 - PCV) 1997 ZOSTER VACCINE (1 of 2) 1997 Respiratory Syncytial Virus (RSV) Vaccine Pt: or over 60 yrs (1 - 1-dose 75+ series) 2022 DEPRESSION SCREENING 06/07/2024 MEDICARE AWV CALENDAR YEAR 2024 COVID-19 VACCINE ( season) 2025 03/21/2022, 09/03/2021, 02/28/2021, Additional history [...] to complete this topic Insurance MEDICARE AETNA [facility] MANAGED MEDICARE ADV [facility] MANAGED MEDICARE ADV [facility] MANAGED MEDICARE ADV Care Teams Apartment Manager Relationship Specialty Start Date End Date Jonas Mullins MD [address] [place] [address] PCP - General 06/27/18
--- OUTSIDE RECORDS SUMMARY | 2025-03-19 10:47 | XMS_ITS | Encounter Summary ---
Author Organization [facility] Address [address] [place] [address] Care Team Providers Care Associate Professor Of Geography Name Role Phone Jonas Mullins MD Primary Care Provider [phone] Encounter Details Date Type Department Care Team (Late Contact Info) Description 12/31/2022 Lab Requisition [facility] - DermPath Lab [address] [place] [address] Jerry Cohn MD [address] [place] [address] Social History Tobacco Use Types Packs/Day Years Used Date Smoking Tobacco: Never Assessed Sex and Gender Information Value Date Recorded Sex Assigned at Not on file 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 Gender Identity Not on file Sexual Orientation Not on file documented as of this encounter Plan of Treatment Upcoming Encounters Date Type Department Care Team (Late Contact Info) Description 05/17/2025 10:00 AM ACCOUNTS RECEIVABLE SPECIALIST Office Visit [facility] [address] [facility], [address] [address] Albertina Elizondo PA-C [address] [address] documented as of this encounter Procedures Procedure Name Priority Date/Time Associated Diagnosis Comments DERMATOPATHOLOGY Routine 12/31/2022 12:0 0 AM CDT documented in this encounter Results * DERMATOPATHOLOGY (12/31/2022 12:00 AM CDT) Case Report Dermatopathology Report Case: [id number] Authorizing Provider: Jerry Cohn MD Collected: 12/31/2022 12:00 AM Ordering Location: [facility] DermPath Lab Received: 12/31/2022 05:07 PM Pathologist: [...] characteristic determined by the Dermatopathology Laboratory at [facility], directed by Dr. Aleksandr Wolf. These tests need not be, and therefore are not, approved by the [place] Food and Drug Administration. The tests are used for clinical purposes. Billing Codes Specimen Charges Stain Charges 27677 65498 1 1 3 4:55 PM CDT DERMATOPATHOLOGY LABORATORY Embedded Images 3 4:55 PM CDT DERMATOPATHOLOGY LABORATORY Pathology/Cytology TISSUE SPECIMEN FROM SKIN / Unknown 12/31/2022 12/31/2022 5:07 PM CDT Miscellaneous samples (specimen) TISSUE SPECIMEN FROM SKIN / Unknown 12/31/2022 12/31/2022 5:07 PM CDT Jerry Cohn MD LAB - PATHOLOGY/CYTOLOGY ORDERAB LES Final Result DERMATOPATHOLOGY LABORATORY [facility] Department of Dermatology [facility] Medicine [address] [place] [address], [address] [phone] documented in this encounter Visit Diagnoses Not on filedocumented in this encounter Care Teams Associate Professor Of Geography Relationship Specialty Start Date End Date Jonas Mullins MD [address] [place] [address] PCP - General 06/27/18 documented as of this encounter
--- OUTSIDE RECORDS SUMMARY | 2025-03-19 10:47 | XMS_ITS | Encounter Summary ---
Author Organization [facility] Address [address] [place] [address] Care Team Providers Care District Recruiter Name Role Phone Jonas Mullins MD Primary Care Provider [phone] Encounter Details Date Type Department Care Team (Late Contact Info) Description 02/27/[address] 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 Gender Identity Not on file Sexual Orientation Not on file documented as of this encounter Plan of Treatment Upcoming Encounters Date Type Department Care Team ([facility] Contact Info) Description 05/17/2025 10:00 AM TAPE SEWING MACHINE OPERATOR Office Visit [facility] [address] [place] [address] Albertina Elizondo PA-C [id number] [place] [address] documented as of this encounter Procedures Procedure Name Priority Date/Time Associated Diagnosis Comments DERMATOPATHOLOGY Routine 02/25/2021 12:0 0 AM CDT documented in this encounter Results * DERMATOPATHOLOGY (02/25/2021 12:00 AM CDT) Case Report Dermatopathology Report Case: [id number] Authorizing Provider: Jerry Cohn MD Collected: 02/25/2021 12:00 AM Ordering Location: [facility] DermPath Lab Received: 02/27/2021 10:10 AM Pathologist: [...] specimen consists of a shave biopsy measuring [id number]. Jar 0. 1:45 PM CDT DERMATOPATHOLOGY LABORATORY [...] characteristic determined by the Dermatopathology Laboratory at [facility], directed by Dr. Aleksandr Wolf. These tests need not be, and therefore are not, approved by the [place] Food and Drug Administration. The tests are used for clinical purposes. Billing Codes Specimen Charges Stain Charges 40263 1 1:45 PM CDT DERMATOPATHOLOGY LABORATORY Embedded Images 1:45 PM CDT DERMATOPATHOLOGY LABORATORY Pathology/Cytolog y TISSUE SPECIMEN FROM SKIN / Unknown 02/25/2021 02/27/2021 10:10 AM CDT Jerry Cohn MD LAB - PATHOLOGY/CYTOLOGY ORDERAB LES Final Result DERMATOPATHOLOGY LABORATORY [facility] - Department of Dermatology [facility] Medicine [address] [place] [address], [address] [phone] documented in this encounter Visit Diagnoses Not on filedocumented in this encounter Care Teams District Recruiter Relationship Specialty Start Date End Date Jonas Mullins MD [address] [place] [address] PCP - General 06/27/18 documented as of this encounter
--- OUTSIDE RECORDS SUMMARY | 2025-03-19 10:47 | XMS_ITS | Encounter Summary ---
Author Organization [facility] Address [address] [place] [address] Care Team Providers Care Grades 6 Through 8 Teacher Name Role Phone Jonas Mullins MD Primary Care Provider [phone] Reason for Visit * Reason Onset Date Comments Appointment 06/30/2018 Encounter Details Date Type Department Care Team (Late Contact Info) Description 06/30/2018 Telephone [facility] [address] [place], [place] [id number] Ricarda Queen MD [address] [facility] [address] [place] [address] Appointment Social History Tobacco Use Types Packs/Day Years Used Date Smoking Tobacco: Never Assessed Sex and Gender Information Value Date Recorded Sex Assigned at Not on file Legal Sex Male 6:14 AM USED [employer] Gender Identity Not on file Sexual Orientation Not on file documented as of this encounter Miscellaneous Notes * Telephone Encounter - Gisselle Macario - 06/30/2018 9:34 AM CST Mr. Elam called this morning stated that he has left messages for someone to call him back from [facility]. Please call pt back at [phone]. Thanks Gisselle Ramsey [employer] documented in this encounter Plan of Treatment Upcoming Encounters Date Type Department Care Team (Late Contact Info) Description 05/17/2025 10:00 AM USED [employer] Office Visit [facility] [id number] [place] [address], [address] [place] [id number] Albertina Elizondo, PA-C [address] [place] [phone] documented as of this encounter Visit Diagnoses Not on filedocumented in this encounter Care Teams Grades 6 Through 8 Teacher Relationship Specialty Start Date End Date Jonas Mullins MD [address] [place] [id number] PCP - General 06/27/18 documented as of this encounter
== END 2025-03-19 09:57 | disposition home or self-care (01) ==
PROVIDERS: PCP Internal Medicine; Visit Provider Internal Medicine
DX: R93.89 Abnormal findings on diagnostic imaging of other specified body structures (principal); Z98.890 Other specified postprocedural states; M16.12 Unilateral primary osteoarthritis, left hip; M24.052 Loose body in left hip
CPT/HCPCS: 73701; Q9967

== ENCOUNTER 2025-05-21 07:53 | Outpatient (CLI) | payer MEDICARE, SELFPAY ==
[2025-05-21 08:37] LABS: Hemoglobin A1C 5.0 % (<5.7)
[2025-05-21 08:43] LABS: Alanine Aminotransferase 22 U/L (6-50); Albumin Level 4.5 g/dL (3.5-5.1); Alkaline Phosphatase 73 U/L (38-126); Anion Gap 4 mmol/L (4-12); Aspartate Amino Transferase 31 U/L (17-59); Bilirubin,Total 1.1 mg/dL (0.2-1.3); Blood Urea Nitrogen 22 mg/dL (9-20); Calcium 9.3 mg/dL (8.4-10.2); Carbon Dioxide 28 mmol/L (22-30); Chloride 104 mmol/L (98-107); Cholesterol 142 mg/dL (0-200); Estimated Glomerular Filt Rate > 60; Glucose 88 mg/dL (65-110); HDL Direct 46 mg/dL; Potassium 4.6 mmol/L (3.4-5.0); Sodium 136 mmol/L (137-145); Total Protein 7.5 g/dL (6.3-8.2); Triglycerides 67 mg/dL (<150)
[2025-05-21 08:57] LABS: Free T4 Free Thyroxine 0.97 ng/dL (0.78-2.19)
[2025-05-21 09:07] LABS: Add Urine Microscopic? YES; Appearance Urine Clear (Clear); Glucose Urine UA Negative (Negative); Leukocyte Esterase Ur 1+ LEU/UL (Negative); Need Manual Microscopic Reviewed; Nitrate Urine Negative (Negative); Non Pathogenic Casts 0-2; Specific Grav Ur 1.005 (1.001-1.035)
[2025-05-21 09:19] LABS: Thyroid Stimulating Hormone 1.240 uIU/mL (0.465-4.680)
== END 2025-05-21 07:54 | disposition home or self-care (01) ==
PROVIDERS: PCP Internal Medicine; Visit Provider Internal Medicine
DX: I10 Essential (primary) hypertension (principal); Z79.899 Other long term (current) drug therapy; Z13.29 Encounter for screening for other suspected endocrine disorder; Z13.1 Encounter for screening for diabetes mellitus; Z13.220 Encounter for screening for lipoid disorders
CPT/HCPCS: 36415; 80053; 80061; 81001; 83036; 84439; 84443; 87086; 87186